=== PATIENT | male | born 1945 | race Caucasian/White ===

== ENCOUNTER → 2016-08-06 | Outpatient (CLI) | payer MEDICARE ==
[~2016-08-06] MED LIST: AMIO400T4 PO; APIX5TAB PO; ASCO1TAB22 PO; ASP81CT PO; ASPI-875 PO; ASPI-999 PO; CEPH500C PO; CHRO200C PO; CINN500C2 PO; CITA10SO PO; CYAN500T44 PO; DILT180C84 PO; DIPH25CA PO; DOCU-238 PO; DOXY100C42 PO; ESOM20CA32 PO; FEXO60TA PO; FLT05NA16; GABA-488 PO; GLUC100016 PO; GLUC1CAP37 PO; GLUC500T10 PO; HYDR-3454 PO; HYDR200T PO; LOVA40TA2 PO; MECL25TA56 PO; METF500T4 PO; METO-333 PO; METO100T6 PO; MTF500T PO; MULT-974 PO; NF-ESOM40C PO; OMEP20CA6 PO; PNT40TEC PO; PROLSEC; RIVA20TA PO; SCR1T1 PO; SUCR1TAB36 PO; VIT1TABL4 PO; VIT1TABL93 PO
--- NOTE | 2016-08-06 10:03 | Diagnostic Imaging Report ---
PROCEDURE: US Gallbladder. TECHNIQUE: Multiple real-time grayscale images were obtained over the right upper quadrant in various projections. Indication: Right upper quadrant pain, worse postprandially. Comparison: None. Discussion: Sonographic evaluation of the right upper quadrant was performed. The liver parenchyma is hyperechoic, consistent with diffuse fatty infiltration. No discrete hepatic mass is identified. The liver is normal in size. 6 mm non-shadowing echogenic focus along the dependent gallbladder wall could represent a small polyp or tumefactive sludge ball. Otherwise the gallbladder appears normal without evidence of cholelithiasis, wall thickening, or pericholecystic fluid. No evidence of intrahepatic biliary duct dilatation. The common bile duct is obscured by overlying bowel gas. The pancreas appears normal as visualized. The right kidney appears normal in echotexture and size without evidence of hydronephrosis or renal mass. The right kidney measures 11.5 cm. There is no ascites or abnormal bowel loops identified. No sonographic Qureshi sign was reported. Impression: 1. Suspect small 6 mm gallbladder polyp or tumefactive sludge ball. No acute abnormality otherwise identified. 2. Fatty infiltration of the liver. Dictated by: Dictated on workstation # [id number]
== END ==
LOC: RAD 09:23
PROVIDERS: ATTEND Internal Medicine
DX: R10.13 Epigastric pain (principal)
CPT/HCPCS: 76705

== ENCOUNTER → 2016-08-19 | Outpatient (CLI) | payer MEDICARE ==
[~2016-08-19] MED LIST changes: +CATHETER FLUSH 10 ML SYR IV PRN
--- NOTE | 2016-08-19 15:02 | Diagnostic Imaging Report ---
Indication: Epigastric pain. Comparison: Gallbladder ultrasound 08/06/2016. Technique: Scintigraphic images were obtained following the intravenous administration of 4.93 mCi of technetium 99m labeled Choletec. Ejection fraction was calculated following the administration of a fatty meal. Region of interest was drawn around the gallbladder and a time/activity curve was generated. Discussion: Hepatic uptake and excretion are normal. There is normal appearance of activity within the gallbladder at 20 minutes and within the small bowel at 50 minutes. No retention activity seen within the common duct. Following the administration of a fatty meal, the gallbladder ejection fraction was calculated at 66%, normal. Impression: 1. Normal HIDA scan. 2. Normal gallbladder ejection fraction. 3. Patient reported no symptoms during the exam. Dictated by: Dictated on workstation # [id number]
== END ==
LOC: CARD 12:15
PROVIDERS: ATTEND Internal Medicine
DX: R10.13 Epigastric pain (principal)
CPT/HCPCS: 78227

== ENCOUNTER 2016-10-15 11:38 | Emergency (ER) | payer MEDICARE ==
[~2016-10-15] VITALS: Ht 177.8 cm; Wt 90.7 kg
[~2016-10-15 11:38] MED LIST changes: -CATHETER FLUSH 10 ML SYR IV PRN; -DILT180C84 PO; -RIVA20TA PO
[2016-10-15] MEDS ORDERED: RX-NITROGLYCERIN 0.4 MG TAB BTL 25'S SL ONE ×2 (11:50→12:15)
[2016-10-15] MEDS ORDERED: ASPIRIN 81 MG CHEW (CHILDREN'S ASA) ONE (11:50)
[2016-10-15] MEDS ORDERED: DILTIAZEM 25 MG/5 ML INJ (CARDIZEM) VIAL ONE (11:58)
[2016-10-15] MEDS ORDERED: DILTIAZEM 100 MG/VIAL (CARDIZEM) ADD-VANTAGE IV ONE (11:59)
[2016-10-15] MEDS ORDERED: SODIUM CHLORIDE (ADD-VANTAGE) 100 ML IV ONE (11:59)
[2016-10-15] MEDS ORDERED: NS IV 1000 ML 1,000 ML IV ONE (12:06)
--- NOTE | 2016-10-15 12:10 | ED Chest Pain ---
General Stated Complaint: IRR HEART RATE Source: patient, family Exam Limitations: no limitations History of Present Illness Time seen by provider: 12:02 Initial Comments Here with report of chest pain that started at about 930 this morning in the left upper chest that radiated to the left arm through the left shoulder. He noted at the time that his pulse was fast and irregular. Has history of atrial fibrillation that is paroxysmal. Currently not on any medicines for rate control. States normally he is in sinus rhythm. Does admit that he worked outside yesterday and worked very hard and may have over done it a little bit. He is wondering if she might be a little dehydrated. Denies nausea, vomiting or sweating. Pain continues at a level of 4 out of 10 on arrival here. 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 NTG SL DRILL PRESS OPERATOR FOR METAL: No Associated Symptoms: No abdominal pain, No diaphoresis, No dizziness, No nausea /vomiting, No shortness of breath, No weakness Allergies and Home Medications Allergies Coded Allergies: No Known Drug Allergies (Unverified , 05/08/15) Home Medications Apixaban 5 Mg Tablet, 5 MG PO BID, (Reported) Cinnamon Bark 500 Mg Capsule, 500 MG PO BID, (Reported) Docusate Sodium 100 Mg Capsule, 100 MG PO BID, (Reported) Esomeprazole Magnesium 22.3 Mg Capsule.dr, 22.3 MG PO DAILY, (Reported) Fluticasone Propionate 16 Gm [place], 2 SPRAYS NA DAILY PRN for ALLERGIES, ( Reported) Glucosa Torres 2Kcl/Chondroitin Torres 1 Each Capsule, 1 CAP PO BID, (Reported) Lovastatin 40 Mg Tablet, 80 MG PO DAILY, (Reported) TAKES 2 (40MG) TABLETS Metformin HCl 500 Mg Tablet, 1,000 MG PO DAILY, (Reported) TAKES 2 (500MG) TABLETS Metoprolol Succinate 100 Mg Tab.er.24h, 100 MG PO DAILY, (Reported) Multivitamin 1 Each Tablet, 1 TAB PO DAILY, (Reported) Sucralfate 1 Gm Tablet, 1 GM PO QID PRN for STOMACH UPSET, (Reported) Review of Systems Constitutional: see HPI, No chills, No fever EENTM: No Symptoms Reported Respiratory: No Symptoms Reported Cardiovascular: See HPI, Chest Pain, Irregular Heart Rate, Palpitations Gastrointestinal: No Symptoms Reported Genitourinary: No Symptoms Reported Musculoskeletal: see HPI, joint pain, muscle pain Skin: no symptoms reported All Other Systems Reviewed Negative Unless Noted: Yes Past Rjbshiq-Utqwaj-Bgjadf Hx Patient Social History Alcohol Use: Denies Use Recreational Drug Use: No Smoking Status: Never a Smoker Immunizations Up To Date Tetanus Booster (TDap): More than 5yrs Date of Pneumonia Vaccine: May 29, 2012 Date of Influenza Vaccine: May 09, 2015 Surgeries HX Surgeries: Yes (STONE RETRIEVAL, HAMMER TOE REPAIR, HEART CATH) Surgeries: Orthopedic Respiratory Hx Respiratory Disorders: Yes (CPAP WITH O2) Respiratory Disorders: Sleep Apnea Cardiovascular Hx Cardiac Disorders: Yes (recent abnormal stress test) Cardiac Disorders: Atrial Fibrillation, Coronary Artery Disease, High Cholesterol, Hypertension, Rheumatic Fever Neurological Hx Neurological Disorders: Yes (LYME DISEASE, NEUROPATHY OF TOES ) Neurological Disorders: Neuropathy Reproductive System Hx Reproductive Disorders: No Sexually Transmitted Disease: No HIV/AIDS: No Genitourinary Hx Genitourinary Disorders: Yes (SEES DR HERRERA FOR PROSTATE) Genitourinary Disorders: Prostate Problems, Kidney Stones Gastrointestinal Hx Gastrointestinal Disorders: Yes Gastrointestinal Disorders: Gastroesophageal Reflux, Chronic Constipation Musculoskeletal Hx Musculoskeletal Disorders: Yes Musculoskeletal Disorders: Arthritis, Chronic Back Pain, Spasms Endocrine Hx Endocrine Disorders: Yes Endocrine Disorders: Diabetes, Non-Insulin dep HEENT HX ENT Disorders: Yes (GLASSES, HEARING AIDS, PARTIAL PLATE) Loss of Vision: Bilateral Hearing Impairment: Bilateral Hearing Aide Cancer Hx Cancer: Yes Cancer: Prostate, Skin Psychosocial Hx Psychiatric Problems: No Integumentary HX Skin/Integumentary Disorder: No Blood Transfusions Hx Blood Disorders: No Adverse Reaction to a Blood Tr: No Reviewed Nursing Assessment Reviewed/Agree w Nursing PMH: Yes Family Medical History Family Medial History: Cardiovascular disease 19 FATHER, Age:93 Diabetes mellitus 19 FATHER, Age:93 FH: bladder cancer 19 FATHER, Age:93 FH: congestive heart failure 19 MOTHER, FH: leukemia PATERNAL GRANDMOTHER, FH: mental illness G8 SISTER Heart valve abnormality 19 MOTHER, Hypertension 19 FATHER, Age:93 G8 SISTER Kidney disease 19 FATHER, Age:93 Prostate cancer 19 FATHER, Age:93 Physical Exam Vital Signs Vital Sign - Last 12Hours 10/15/16 10/15/16 11:38 11:40 Temp 97.9 Pulse 110 Resp 18 B/P (MAP) 122/72 Pulse Ox 94 O2 Delivery Room Air Capillary Refill : General Appearance: No Apparent Distress, WD/WN HEENT: PERRL/EOMI, Pharynx Normal Neck: Non Tender, Supple Respiratory: Lungs Clear, Normal Breath Sounds Cardiovascular: Irregularly Irregular, Tachycardia Gastrointestinal: Normal Bowel Sounds, Soft Extremity: Normal Range of Motion, Non Tender Neurologic/Psychiatric: Alert, Oriented x3, No Motor/Sensory Deficits Skin: Normal Color, Warm/Dry Progress/Results/Core Measures Results/Orders Lab Results Laboratory Tests Test 10/15/16 11:45 10/15/16 14:36 Range/Units White Blood Count 4.2 L 4.3-11.0 10^3/uL Red Blood Count 5.08 4.35-5.85 10^6/uL Hemoglobin 15.2 13.3-17.7 G/DL Hematocrit 45 40-54 % Mean Corpuscular Volume 88 80-99 FL Mean Corpuscular Hemoglobin 30 25-34 PG Mean Corpuscular Hemoglobin Concent 34 32-36 G/DL Red Cell Distribution Width 13.1 10.0-14.5 % Platelet Count 169 130-400 10^3/uL Mean Platelet Volume 10.9 H 7.4-10.4 FL Neutrophils (%) (Auto) 46 42-75 % Lymphocytes (%) (Auto) 42 12-44 % Monocytes (%) (Auto) 7 0-12 % Eosinophils (%) (Auto) 4 0-10 % Basophils (%) (Auto) 1 0-10 % Neutrophils # (Auto) 1.9 1.8-7.8 X 10^3 Lymphocytes # (Auto) 1.8 1.0-4.0 X 10^3 Monocytes # (Auto) 0.3 0.0-1.0 X 10^3 Eosinophils # (Auto) 0.2 0.0-0.3 10^3/uL Basophils # (Auto) 0.0 0.0-0.1 10^3/uL Prothrombin Time 11.8 L 12.2-14.7 SEC INR Comment 0.9 0.8-1.4 Activated Partial Thromboplast Time 28 24-35 SEC D-Dimer 0.41 0.00-0.49 UG/ML Sodium Level 140 135-145 MMOL/L Potassium Level 4.4 3.6-5.0 MMOL/L Chloride Level 105 98-107 MMOL/L Carbon Dioxide Level 26 21-32 MMOL/L Anion Gap 9 5-14 MMOL/L Blood Urea Nitrogen 13 7-18 MG/DL Creatinine 0.82 0.60-1.30 MG/DL Estimat Glomerular Filtration Rate > 60 BUN/Creatinine Ratio 16 Glucose Level 182 H 70-105 MG/DL Calcium Level 8.9 8.5-10.1 MG/DL Magnesium Level 1.8 1.8-2.4 MG/DL Total Bilirubin 0.4 0.1-1.0 MG/DL Aspartate Amino Transf (AST/SGOT) 20 5-34 U/L Alanine Aminotransferase (ALT/SGPT) 27 0-55 U/L Alkaline Phosphatase 79 40-136 U/L Myoglobin 45.2 10.0-92.0 NG/ML Troponin I < 0.30 < 0.30 <0.30 NG/ML Total Protein 6.3 L 6.4-8.2 G/DL Albumin 3.8 3.2-4.5 G/DL My Orders Orders - CHACE HOLLAND MD Aspirin Chewable Tablet (Baby Aspirin Ch (10/15/16 11:50) Rx-Nitroglycerin Sl Tabs (Rx-Nitrostat S (10/15/16 11:50) Diltiazem Injection (Cardizem Injection) (10/15/16 11:58) Sodium Chloride (Add-[place]) (Ns (Add-V (10/15/16 11:59) Diltiazem Drip (Cardizem Drip) (10/15/16 11:59) Cbc With Automated Diff (10/15/16 12:05) Magnesium (10/15/16 12:05) Chest 1 View, Ap/Pa Only (10/15/16 12:05) Ekg Tracing (10/15/16 12:05) Cardiac Profile 1 (10/15/16 12:05) Comprehensive Metabolic Panel (10/15/16 12:05) Myoglobin Serum (10/15/16 12:05) Protime With Inr (10/15/16 12:05) Partial Thromboplastin Time (10/15/16 12:05) O2 (10/15/16 12:05) Monitor-Rhythm Ecg Trace Only (10/15/16 12:05) Lipid Panel (10/16/16 06:00) Aspirin Chewable Tablet (Baby Aspirin Ch (10/15/16 12:15) Rx-Nitroglycerin Sl Tabs (Rx-Nitrostat S (10/15/16 12:15) Saline Lock/Iv-Start (10/15/16 12:05) Ns Iv 1000 Ml (Sodium Chloride 0.9%) (10/15/16 12:06) Fibrin Degradation Products (10/15/16 12:45) Ns Iv 500 Ml (Sodium Chloride 0.9%) (10/15/16 13:44) Ns Iv 500 Ml (Sodium Chloride 0.9%) (10/15/16 13:43) Troponin I (10/15/16 14:26) Apixaban Tablet (Eliquis Tablet) (10/15/16 14:30) Medications Given in ED Current Medications Medications Dose Ordered Sig/Jamie Route Start Time Stop Time Status Last Admin Dose Admin Apixaban 5 mg ONCE ONCE PO 10/15/16 14:30 10/15/16 14:31 DC 10/15/16 15:16 5 MG Aspirin 324 mg ONCE ONCE PO 10/15/16 12:15 10/15/16 12:16 DC 10/15/16 11:53 324 MG Nitroglycerin 0.4 mg UD ONCE SL 10/15/16 12:15 10/15/16 12:16 DC 10/15/16 11:54 0.4 MG Sodium Chloride 500 ml @ 0 mls/hr Q0M ONCE IV 10/15/16 13:44 10/15/16 13:45 DC 10/15/16 13:51 500 MLS/HR Sodium Chloride 1,000 ml @ 0 mls/hr Q0M ONCE IV 10/15/16 12:06 10/15/16 12:07 DC 10/15/16 12:05 1,000 MLS/HR Vital Signs/I&O Vital Sign - Last 12Hours 10/15/16 10/15/16 11:38 11:40 Temp 97.9 Pulse 110 Resp 18 B/P (MAP) 122/72 Pulse Ox 94 O2 Delivery Room Air Room Air Progress Note : Progress Note Seen and evaluated. IV, labs, EKG and chest x-ray ordered. ASA 324 mg by mouth. Nitroglycerin sublingual ordered. He did receive 1 dose of nitroglycerin and had blood pressure dropped to 80s over 70s. Normal saline 1 L bolus initiated which will help with blood pressure and concerns for dehydration. Patient has atrial fibrillation that is currently at the rate of 90-140 bpm. Monitor patient. 1250: Heart rate now 70s to 90s and blood pressure 102/23 and patient is resting peacefully. Monitor patient. 1423: I did discuss the case with Dr. Ortiz. We will repeat troponin and initiate AHLQUIST treatment. Patient's heart rate is in the 70s to 80s currently and he is still without chest pain. Overall patient feels better. Dr. Ortiz will see patient in clinic tomorrow if troponin is negative. 1525: Repeat troponin is negative. Patient is still without chest pain. Discharged home with return precautions. Patient verbalize understanding instructions and agreement with plan. ECG Initial ECG Impression Date: Oct 15, 2016 Initial ECG Impression Time: 11:44 Initial ECG Rate: 89 Initial ECG Rhythm: A Fib/Flutter Comment Atrial fibrillation with rate of 89. Normal axis. No evidence of ST elevation [place]. Change from previous of 06/12/15 in which was sinus rhythm. Interpreted by me. Diagnostic Imaging Diagonstic Imaging: Xray Plain Films/CT/US/NM/MRI: chest Comments VIA [facility], [facility]. [place], [place] NAME: JHOANA ARCHULETA [facility] REC#: [id number] PT STATUS: REG ER : 1945 PHYSICIAN: CHACE HOLLAND MD ADMIT DATE: 10/15/16/ER Draft Date of Exam:10/15/16 CHEST 1 VIEW, AP/PA ONLY INDICATION: Irregular heart rate COMPARISON: 06/11/2015 FINDINGS: Single frontal view of the chest demonstrates normal heart size and pulmonary vascularity. The lungs are well aerated and clear. No large pleural effusion or pneumothorax is seen. The visualized osseous structures show no acute abnormalities. IMPRESSION: 1. No acute cardiopulmonary process. Dictated on workstation # [id number] Dict: 10/15/16 1245 Trans: 10/15/16 1246 JENNIFER [id number] Interpreted by: RUBIO ROME Electronically signed by: Departure Impression Impression: Primary Impression: Paroxysmal atrial fibrillation Disposition: 01 HOME, SELF-CARE Condition: Improved Departure-Patient Inst. Decision time for Depature: 15:27 Referrals: STEPHANY ORTIZ MD [facility] NIGHAT PENDLETON DO (PCP/Family) Primary Care Physician Patient Instructions: Atrial Fibrillation (DC), Chest Pain (DC) Add. Discharge Instructions: You will restart your request. Your next dose is due tomorrow morning and then you will take it twice daily. Call Dr. Ortiz's office in the morning for appointment tomorrow. Return for worse pain, weakness, fast heart rate, breathing problems, nausea, vomiting or sweating or other concerns as needed. Continue other medications as directed. Scripts Apixaban (Eliquis) 5 Mg Tablet 5 MG PO BID, #60 TAB Prov: CHACE HOLLAND MD 10/15/16 Copy Copies To 1: STEPHANY ORTIZ MD [facility] CHACE HOLLAND MD Oct 15, 2016 12:10
[2016-10-15 12:15] LABS: BASOPHILS % (AUTO) 1 % (0-10); EOSINOPHILS # (AUTO) 0.2 10^3/uL (0.0-0.3); EOSINOPHILS % (AUTO) 4 % (0-10); LYMPHOCYTES # (AUTO) 1.8 X 10^3 (1.0-4.0); LYMPHOCYTES % (AUTO) 42 % (12-44); MEAN CORPUSCULAR HEMOGLOBIN 30 PG (25-34); MEAN CORPUSCULAR HGB CONC 34 G/DL (32-36); MEAN CORPUSCULAR VOLUME 88 FL (80-99); MEAN PLATELET VOLUME 10.9 FL (7.4-10.4); MONOCYTES # (AUTO) 0.3 X 10^3 (0.0-1.0); MONOCYTES % (AUTO) 7 % (0-12); NEUTROPHILS # (AUTO) 1.9 X 10^3 (1.8-7.8); NEUTROPHILS % (AUTO) 46 % (42-75); PLATELET COUNT 169 10^3/uL (130-400); RED BLOOD COUNT 5.08 10^6/uL (4.35-5.85); RED CELL DISTRIBUTION WIDTH 13.1 % (10.0-14.5); WHITE BLOOD COUNT 4.2 10^3/uL (4.3-11.0)
[2016-10-15] MEDS ORDERED: ASPIRIN 81 MG CHEW (CHILDREN'S ASA) PO ONE (12:15)
[2016-10-15 12:18] LABS: INR 0.9 (0.8-1.4); PROTHROMBIN TIME PATIENT 11.8 SEC (12.2-14.7)
[2016-10-15 12:28] LABS: ALANINE AMINOTRANSFERASE 27 U/L (0-55); ALBUMIN 3.8 G/DL (3.2-4.5); ANION GAP 9 MMOL/L (5-14); ASPARTATE AMINO TRANSFERASE 20 U/L (5-34); BILIRUBIN,TOTAL 0.4 MG/DL (0.1-1.0); BLOOD UREA NITROGEN 13 MG/DL (7-18); BUN/CREATININE RATIO 16; CALCIUM 8.9 MG/DL (8.5-10.1); CARBON DIOXIDE 26 MMOL/L (21-32); CHLORIDE 105 MMOL/L (98-107); CREATININE SERUM 0.82 MG/DL (0.60-1.30); GFR ESTIMATED > 60; GLUCOSE 182 MG/DL (70-105); MAGNESIUM 1.8 MG/DL (1.8-2.4); POTASSIUM 4.4 MMOL/L (3.6-5.0); SODIUM 140 MMOL/L (135-145); TOTAL PROTEIN 6.3 G/DL (6.4-8.2)
[2016-10-15 12:35] LABS: MYOGLOBIN SERUM 45.2 NG/ML (10.0-92.0)
--- NOTE | 2016-10-15 12:47 | Diagnostic Imaging Report ---
INDICATION: Irregular heart rate COMPARISON: 06/11/2015 FINDINGS: Single frontal view of the chest demonstrates normal heart size and pulmonary vascularity. The lungs are well aerated and clear. No large pleural effusion or pneumothorax is seen. The visualized osseous structures show no acute abnormalities. IMPRESSION: 1. No acute cardiopulmonary process. Dictated by: Dictated on workstation # [id number]
[2016-10-15] MEDS ORDERED: NS IV 500 ML 500 ML ONE (13:43)
[2016-10-15] MEDS ORDERED: NS IV 500 ML 500 ML IV ONE (13:44)
[2016-10-15] MEDS ORDERED: APIXABAN 5 MG (ELIQUIS) TABLET PO ONE (14:30)
[2016-10-15] MEDS ORDERED: APIX5TAB PO (15:28)
[2016-10-15 15:31] VITALS: BP 123/82
--- OUTSIDE RECORDS SUMMARY | 2016-11-03 04:19 | XMS REPORT | Continuity of Care Document ---
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 Social History History Response Recorded Date/Time Alcohol Use Denies Use 09/15/12 11:03am Recreational Drug Use N 09/15/12 11:03am Recent Foreign Travel N 09/15/12 10:39am Recent Infectious Disease Exposure N 11:03am Hospitalization with Isolation Denies 10:39am Allergies, Adverse Reactions, Alerts Allergen Type Severity Reaction Last Updated No Known Drug Allergies 11/17/10 Medications Medication Dose Units Route Sig Qty Days Pantoprazole Sodium (Protonix) 1 Tab PO DAILY 30 Sucralfate (Carafate) 1 Gm PO QID Aspirin ([place] Aspirin) 81 Mg PO DAILY Omeprazole (Prilosec) 20 Mg PO DAILY Fluticasone Propionate (Flonase 0.05% Nasal [place]) 2 Sprays NSEACH DAILY Lovastatin (Lovastatin 40 Mg) 2 Each PO DAILY WITH SUPPER Fexofenadine HCl (Jenifer) 1 Each PO BID Citalopram Hydrobromide (Citalopram) 20 Mg PO HS Immunizations Name Given Type Date of Pneumonia Vaccine 05/29/12 H Date of Influenza Vaccine 04/24/12 H Response Recorded Date/Time Status not known Unknown Results No Known Relevant Diagnostic Tests, Laboratory Data and/or Discharge Summary. Procedures Procedure Code Date DIAGNOSTIC COLONOSCOPY 85166 06/09/08 UPPER GI ENDOSCOPY BIOPSY [id number] 06/24/12 Encounters Encounter Location Date/Time Departed Emergency Room [facility] 10:37am
--- OUTSIDE RECORDS SUMMARY | 2016-11-03 04:19 | XMS REPORT | Continuity of Care Document ---
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 (mass/volume) 0.41 ug/mL 0.00-0.49 Serum or plasma troponin i.cardiac measurement (mass/volume) - 10/15/16 14:36 Serum or plasma troponin i.cardiac measurement (mass/volume) < ng/mL <0.30 Complete blood count (CBC) with automated white blood cell (WBC) differential - 10/17/16 16:20 Blood leukocytes automated count (number/volume) 6.0 10*3/ uL 4.3-11.0 Blood erythrocytes automated count (number/volume) 4.62 10*6 /uL 4.35-5.85 Venous blood hemoglobin measurement (mass/volume) 13.9 g/dL 13.3-17.7 Blood hematocrit (volume fraction) 41 % 40-54 Automated erythrocyte mean corpuscular volume 88 [foz_us] 80-99 Automated erythrocyte mean corpuscular hemoglobin (mass per erythrocyte) 30 pg 25-34 Automated erythrocyte mean corpuscular hemoglobin concentration measurement ( mass/volume) 34 g/dL 32-36 Automated erythrocyte distribution width ratio 12.9 % 10.0-14.5 Automated blood platelet count (count/volume) 171 10*3/uL 130-400 Automated blood platelet mean volume measurement 11.3 [foz_ us] 7.4-10.4 Automated blood neutrophils/100 leukocytes 63 % 42-75 Automated blood lymphocytes/100 leukocytes 28 % 12-44 Blood monocytes/100 leukocytes 6 % 0-12 Automated blood eosinophils/100 leukocytes 2 % 0-10 Automated blood basophils/100 leukocytes 1 % 0-10 Blood neutrophils automated count (number/volume) 3.8 10*3 1.8-7.8 Blood lymphocytes automated count (number/volume) 1.7 10*3 1.0-4.0 Blood monocytes automated count (number/volume) 0.4 10*3 0.0-1.0 Automated eosinophil count 0.1 10*3/uL 0.0-0.3 Automated blood basophil count (count/volume) 0.0 10*3/uL 0.0-0.1 PT panel in platelet poor plasma by coagulation assay - 10/17/16 16:20 Prothrombin time (PT) in platelet poor plasma by coagulation assay 17.6 s 12.2-14.7 INR in platelet poor plasma or blood by coagulation assay 1.5 0.8-1.4 Activated partial thromboplastin time (aPTT) in platelet poor plasma bycoagulation assay - 10/17/16 16:20 Activated partial thromboplastin time (aPTT) in platelet poor plasma bycoagulation assay 33 s 24-35 Comprehensive metabolic panel - 10/17/16 16:20 Serum or plasma sodium measurement (moles/volume) 139 mmol/ L 135-145 Serum or plasma potassium measurement (moles/volume) 4.2 mmol/L 3.6-5.0 Serum or plasma chloride measurement (moles/volume) 106 mmol /L 98-107 Carbon dioxide 24 mmol/L 21-32 Serum or plasma anion gap determination (moles/volume) 9 mmol/L 5-14 Serum or plasma urea nitrogen measurement (mass/volume) 13 mg/dL 7-18 Serum or plasma creatinine measurement (mass/volume) 0.89 mg /dL 0.60-1.30 Serum or plasma urea nitrogen/creatinine mass ratio 15 NRG Serum or plasma creatinine measurement with calculation of estimated glomerular filtration rate > NRG Serum or plasma glucose measurement (mass/volume) 202 mg/dL 70-105 Serum or plasma calcium measurement (mass/volume) 9.2 mg/dL 8.5-10.1 Serum or plasma total bilirubin measurement (mass/volume) 0.4 mg/dL 0.1-1.0 Serum or plasma alkaline phosphatase measurement (enzymatic activity/volume) 73 U/L 40-136 Serum or plasma aspartate aminotransferase measurement (enzymatic activity/ volume) 23 U/L 5-34 Serum or plasma alanine aminotransferase measurement (enzymatic activity/volume ) 30 U/L 0-55 Serum or plasma protein measurement (mass/volume) 6.3 g/dL 6.4-8.2 Serum or plasma albumin measurement (mass/volume) 3.7 g/dL 3.2-4.5 Magnesium - 10/17/16 16:20 Magnesium 1.9 mg/dL 1.8-2.4 Serum or plasma troponin i.cardiac measurement (mass/volume) - 10/17/16 16:20 Serum or plasma troponin i.cardiac measurement (mass/volume) < ng/mL <0.30 Myoglobin, serum - 10/17/16 16:20 Myoglobin, serum 56.6 ng/mL 10.0-92.0 Serum or plasma troponin i.cardiac measurement (mass/volume) - 10/17/16 22:20 Serum or plasma troponin i.cardiac measurement (mass/volume) < ng/mL <0.30 Complete blood count (CBC) with automated white blood cell (WBC) differential - 10/18/16 03:25 Blood leukocytes automated count (number/volume) 4.1 10*3/ uL 4.3-11.0 Blood erythrocytes automated count (number/volume) 4.16 10*6 /uL 4.35-5.85 Venous blood hemoglobin measurement (mass/volume) 12.5 g/dL 13.3-17.7 Blood hematocrit (volume fraction) 37 % 40-54 Automated erythrocyte mean corpuscular volume 89 [foz_us] 80-99 Automated erythrocyte mean corpuscular hemoglobin (mass per erythrocyte) 30 pg 25-34 Automated erythrocyte mean corpuscular hemoglobin concentration measurement ( mass/volume) 34 g/dL 32-36 Automated erythrocyte distribution width ratio 12.9 % 10.0-14.5 Automated blood platelet count (count/volume) 161 10*3/uL 130-400 Automated blood platelet mean volume measurement 11.0 [foz_ us] 7.4-10.4 Automated blood neutrophils/100 leukocytes 42 % 42-75 Automated blood lymphocytes/100 leukocytes 45 % 12-44 Blood monocytes/100 leukocytes 8 % 0-12 Automated blood eosinophils/100 leukocytes 5 % 0-10 Automated blood basophils/100 leukocytes 1 % 0-10 Blood neutrophils automated count (number/volume) 1.7 10*3 1.8-7.8 Blood lymphocytes automated count (number/volume) 1.8 10*3 1.0-4.0 Blood monocytes automated count (number/volume) 0.3 10*3 0.0-1.0 Automated eosinophil count 0.2 10*3/uL 0.0-0.3 Automated blood basophil count (count/volume) 0.0 10*3/uL 0.0-0.1 Comprehensive metabolic panel - 10/18/16 03:25 Serum or plasma sodium measurement (moles/volume) 140 mmol/ L 135-145 Serum or plasma potassium measurement (moles/volume) 4.0 mmol/L 3.6-5.0 Serum or plasma chloride measurement (moles/volume) 108 mmol /L 98-107 Carbon dioxide 23 mmol/L 21-32 Serum or plasma anion gap determination (moles/volume) 9 mmol/L 5-14 Serum or plasma urea nitrogen measurement (mass/volume) 12 mg/dL 7-18 Serum or plasma creatinine measurement (mass/volume) 0.79 mg /dL 0.60-1.30 Serum or plasma urea nitrogen/creatinine mass ratio 15 NRG Serum or plasma creatinine measurement with calculation of estimated glomerular filtration rate > NRG Serum or plasma glucose measurement (mass/volume) 126 mg/dL 70-105 Serum or plasma calcium measurement (mass/volume) 8.3 mg/dL 8.5-10.1 Serum or plasma total bilirubin measurement (mass/volume) 0.4 mg/dL 0.1-1.0 Serum or plasma alkaline phosphatase measurement (enzymatic activity/volume) 65 U/L 40-136 Serum or plasma aspartate aminotransferase measurement (enzymatic activity/ volume) 21 U/L 5-34 Serum or plasma alanine aminotransferase measurement (enzymatic activity/volume ) 28 U/L 0-55 Serum or plasma protein measurement (mass/volume) 5.6 g/dL 6.4-8.2 Serum or plasma albumin measurement (mass/volume) 3.3 g/dL 3.2-4.5 Serum or plasma phosphate measurement (mass/volume) - 10/18/16 03:25 Serum or plasma phosphate measurement (mass/volume) 4.2 mg/ dL 2.3-4.7 Magnesium - 10/18/16 03:25 Magnesium 1.8 mg/dL 1.8-2.4 Myoglobin, serum - 10/18/16 03:25 Myoglobin, serum 42.1 ng/mL 10.0-92.0 Lipid 1996 panel - 10/18/16 03:25 Serum or plasma triglyceride measurement (mass/volume) 104 mg/dL <150 Serum or plasma cholesterol measurement (mass/volume) 157 mg /dL < 200 Serum or plasma cholesterol in HDL measurement (mass/volume) 37 mg/dL 40-60 Cholesterol in LDL [mass/volume] in serum or plasma by direct assay 103 mg/dL 1-129 Serum or plasma cholesterol in VLDL measurement (mass/volume) 21 mg/dL 5-40 THYROID STIMULATING HORMONE - 10/18/16 03:25 THYROID STIMULATING HORMONE 1.50 u[iU]/mL 0.35-4.94 Encounters ACCT No. Visit Date/Time Discharge Status Pt. 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 [facility] ER HEAD INJ [id number] 06/30/2015 21:05:00 2014 07:07:00 DIS Outpatient NIGHAT PENDLETON DO [facility] SLEEP SNORING,,DAYTIME SLEEPINESS,CPAP FAILURE [id number] 06/11/2015 17:13:00 2014 11:35:00 DIS Inpatient NIGHAT PENDLETON DO [facility] ICU AFIB WITH RVR [id number] 05/08/2015 16:29:00 2014 09:53:00 DIS Outpatient CHANDRIKA BIRD FACC, STEPHANY FACP CCDS [facility] CATH CHEST PAIN [id number] 05/05/2015 07:38:00 2014 23:59:59 CLS Outpatient CHANDRIKA BIRD FACC, ALI FACP CCDS [facility] CARD PAF,BRANDI,OBESITY,HLP,CHEST DISCOMFORT [id number] 05/04/2015 07:43:00 2014 23:59:59 CLS Outpatient CHANDRIKA BIRD FACC, ALI FACP CCDS [facility] CARD PAF,BRANDI,OBESITY,HLP,CHEST DISCOMFORT [id number] 04/16/2015 18:53:00 2014 20:48:00 DIS Emergency YAMILET BIRD, SABAS [place] [facility] ER CHEST PAIN [id number] 04/06/2015 08:32:00 2014 14:05:00 DIS Outpatient REMINGTON DPM, MARCEL Q [facility] SDC CAPSULITIS, HYPERTROPHIC RIGHT SECOND METATARSAL [id number] 03/30/2015 13:09:00 2014 23:59:59 CLS Outpatient REMINGTON ISIS MARCEL Antonio [facility] PREOP CAPSULITIS, HYPERTROPHIC RIGHT SECOND METATARSAL [id number] 11/12/2013 19:48:00 2013 06:50:00 DIS Outpatient FAUSTINA ALMONTEP [facility] SLEEP BRANDI,UNSPECIFIED SLEEP DISTURBANCE [id number] 12/02/2012 20:14:00 2012 06:30:00 DIS Outpatient NIGHAT PENDLETON DO [facility] SLEEP SNORING,HYPERTENSION, EXCESSIVE DAYTIME SLEEPINESS [id number] 08/19/2016 12:15:00 ACT Outpatient NIGHAT PENDLETON DO [facility] CARD R10.13 [id number] 08/06/2016 09:23:00 ACT Outpatient NIGHAT PENDLETON DO [facility] RAD R10.13 [id number] 10/25/2015 09:00:00 ACT Outpatient CAYETANO CAMACHO DO [facility] RT SOA, DYSPNEA, [id number] 07/31/2015 11:32:00 ACT Outpatient AV KEEN [facility] CARD AFIB, HTN [id number] 09/15/2012 10:37:00 Document Registration [id number] 06/24/2012 08:17:00 Document Registration [id number] 06/17/2012 07:25:00 Document Registration [id number] 05/15/2012 10:45:00 Document Registration [id number] 09/13/2011 06:07:00 Document Registration [id number] 12/14/2010 12:57:00 Document Registration [id number] 11/17/2010 11:02:00 Document Registration
== END 2016-10-15 15:33 | disposition home or self-care (01) ==
LOC: EDUNIT# 11:38 → ER 11:40
DX: I48.0 Paroxysmal atrial fibrillation (principal); I10 Essential (primary) hypertension; E11.9 Type 2 diabetes mellitus without complications; I25.10 Atherosclerotic heart disease of native coronary artery without angina pectoris; Z79.01 Long term (current) use of anticoagulants; Z79.84 Long term (current) use of oral hypoglycemic drugs; Z79.899 Other long term (current) drug therapy
CPT/HCPCS: 36415; 71010; 80053; 83735; 83874; 84484; 85025; 85379; 85610; 85730; 93005; 93041; 96360

== ENCOUNTER 2016-10-17 16:00 | Observation (INO) | payer MEDICARE ==
[~2016-10-17] VITALS: Ht 177.8 cm; Wt 102.1 kg
[2016-10-17] MEDS ORDERED: DILTIAZEM 25 MG/5 ML INJ (CARDIZEM) VIAL ONE (16:05)
[2016-10-17] MEDS ORDERED: NS (IVPB) 0 ML ONE (16:05)
[2016-10-17] MEDS ORDERED: DILTIAZEM 100 MG/VIAL (CARDIZEM) ADD-VANTAGE IV ONE (16:05)
[2016-10-17] MEDS ORDERED: SODIUM CHLORIDE (ADD-VANTAGE) 100 ML IV ONE (16:06)
[2016-10-17] MEDS ORDERED: DILTIAZEM 25 MG/5 ML INJ (CARDIZEM) VIAL IVP ONE (16:15)
[2016-10-17] MEDS ORDERED: ASPIRIN 81 MG CHEW (CHILDREN'S ASA) PO ONE (16:15)
[2016-10-17] MEDS ORDERED: DILTIAZEM DRIP 100 MG in SODIUM CHLORIDE (ADD-VANTAGE) 100 ML IV SCH (16:15)
[2016-10-17 16:32] LABS: BASOPHILS % (AUTO) 1 % (0-10); EOSINOPHILS # (AUTO) 0.1 10^3/uL (0.0-0.3); EOSINOPHILS % (AUTO) 2 % (0-10); LYMPHOCYTES # (AUTO) 1.7 X 10^3 (1.0-4.0); LYMPHOCYTES % (AUTO) 28 % (12-44); MEAN CORPUSCULAR HEMOGLOBIN 30 PG (25-34); MEAN CORPUSCULAR HGB CONC 34 G/DL (32-36); MEAN CORPUSCULAR VOLUME 88 FL (80-99); MEAN PLATELET VOLUME 11.3 FL (7.4-10.4); MONOCYTES # (AUTO) 0.4 X 10^3 (0.0-1.0); MONOCYTES % (AUTO) 6 % (0-12); NEUTROPHILS # (AUTO) 3.8 X 10^3 (1.8-7.8); NEUTROPHILS % (AUTO) 63 % (42-75); PLATELET COUNT 171 10^3/uL (130-400); RED BLOOD COUNT 4.62 10^6/uL (4.35-5.85); RED CELL DISTRIBUTION WIDTH 12.9 % (10.0-14.5)
--- NOTE | 2016-10-17 16:42 | ED Chest Pain ---
General Chief Complaint: Chest Pain Stated Complaint: AFIB ATTACK Source: patient Exam Limitations: no limitations History of Present Illness Time seen by provider: 16:00 Initial Comments Here with report of central chest pain and return of his atrial fibrillation with fast heart rate. This started at about 2 p.m. today. Seen yesterday for the same and also seen by his industrial painter yesterday evening. Rate had been controlled with fluids yesterday. Denies any significant activity currently. Denies shortness of breath or breathing problems. 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 NTG SL FLORIST DESIGNER: No Associated Symptoms: No back pain, No diaphoresis, No nausea/vomiting, No shortness of breath, No weakness Allergies and Home Medications Allergies Coded Allergies: No Known Drug Allergies (Unverified , 05/08/15) Home Medications Cinnamon Bark 500 Mg Capsule, 500 MG PO BID, (Reported) Diltiazem HCl 180 Mg Cap.er.24h, 360 MG PO DAILY, #30 Ref 5 Prescribed by: AV KEEN on 10/18/16 0847 Docusate Sodium 100 Mg Capsule, 100 MG PO BID, (Reported) Esomeprazole Magnesium 22.3 Mg Capsule.dr, 22.3 MG PO DAILY, (Reported) Fluticasone Propionate 16 Gm [place], 2 SPRAYS NA DAILY PRN for ALLERGIES, ( Reported) Glucosa Torres 2Kcl/Chondroitin Torres 1 Each Capsule, 1 CAP PO BID, (Reported) Lovastatin 40 Mg Tablet, 80 MG PO DAILY, (Reported) TAKES 2 (40MG) TABLETS Metformin HCl 500 Mg Tablet, 1,000 MG PO DAILY, (Reported) TAKES 2 (500MG) TABLETS Multivitamin 1 Each Tablet, 1 TAB PO DAILY, (Reported) Rivaroxaban 20 Mg Tablet, 20 MG PO DAILY@1700, #30 Ref 3 Prescribed by: AV KEEN on 10/18/16 0847 Review of Systems Constitutional: see HPI, No chills, No fever EENTM: No Symptoms Reported Respiratory: No Symptoms Reported Cardiovascular: See HPI, Chest Pain, Irregular Heart Rate, Palpitations Gastrointestinal: No Symptoms Reported Genitourinary: No Symptoms Reported Musculoskeletal: no symptoms reported Skin: no symptoms reported All Other Systems Reviewed Negative Unless Noted: Yes Past Sbxlahb-Autwru-Lbpcbv Hx Patient Social History Alcohol Use: Occasionally Uses Recreational Drug Use: No Smoking Status: Never a Smoker Recent Foreign Travel: No Contact w/Someone Who Travel: No Immunizations Up To Date Tetanus Booster (TDap): More than 5yrs Date of Pneumonia Vaccine: May 29, 2012 Date of Influenza Vaccine: May 09, 2015 Surgeries HX Surgeries: Yes (STONE RETRIEVAL, HAMMER TOE REPAIR, HEART CATH) Surgeries: Orthopedic Respiratory Hx Respiratory Disorders: Yes (CPAP WITH O2) Respiratory Disorders: Sleep Apnea Cardiovascular Hx Cardiac Disorders: Yes (recent abnormal stress test) Cardiac Disorders: Atrial Fibrillation, Coronary Artery Disease, High Cholesterol, Hypertension, Rheumatic Fever Neurological Hx Neurological Disorders: Yes (LYME DISEASE, NEUROPATHY OF TOES ) Neurological Disorders: Neuropathy Reproductive System Hx Reproductive Disorders: No Sexually Transmitted Disease: No HIV/AIDS: No Genitourinary Hx Genitourinary Disorders: Yes (SEES DR HERRERA FOR PROSTATE) Genitourinary Disorders: Prostate Problems, Kidney Stones Gastrointestinal Hx Gastrointestinal Disorders: Yes Gastrointestinal Disorders: Gastroesophageal Reflux, Chronic Constipation Musculoskeletal Hx Musculoskeletal Disorders: Yes Musculoskeletal Disorders: Arthritis, Chronic Back Pain, Spasms Endocrine Hx Endocrine Disorders: Yes Endocrine Disorders: Diabetes, Non-Insulin dep HEENT HX ENT Disorders: Yes (GLASSES, HEARING AIDS, PARTIAL PLATE) Loss of Vision: Bilateral Hearing Impairment: Bilateral Hearing Aide Cancer Hx Cancer: Yes Cancer: Prostate, Skin Psychosocial Hx Psychiatric Problems: No Integumentary HX Skin/Integumentary Disorder: No Blood Transfusions Hx Blood Disorders: No Adverse Reaction to a Blood Tr: No Reviewed Nursing Assessment Reviewed/Agree w Nursing PMH: Yes Family Medical History Family Medial History: Cardiovascular disease 19 FATHER, Age:93 Diabetes mellitus 19 FATHER, Age:93 FH: bladder cancer 19 FATHER, Age:93 FH: congestive heart failure 19 MOTHER, FH: leukemia PATERNAL GRANDMOTHER, FH: mental illness G8 SISTER Heart valve abnormality 19 MOTHER, Hypertension 19 FATHER, Age:93 G8 SISTER Kidney disease 19 FATHER, Age:93 Prostate cancer 19 FATHER, Age:93 Physical Exam Vital Signs Vital Sign - Last 12Hours 10/17/16 16:10 Temp 97.2 Pulse 165 Resp 20 B/P (MAP) 117/104 Pulse Ox 98 O2 Delivery Room Air Capillary Refill : General Appearance: No Apparent Distress, WD/WN HEENT: PERRL/EOMI, Pharynx Normal Neck: Non Tender, Supple Respiratory: Lungs Clear, Normal Breath Sounds Cardiovascular: Irregularly Irregular, Tachycardia Gastrointestinal: Normal Bowel Sounds Extremity: Normal Range of Motion, Non Tender, No Calf Tenderness Neurologic/Psychiatric: Alert, Oriented x3 Skin: Normal Color, Warm/Dry Progress/Results/Core Measures Results/Orders Lab Results Laboratory Tests Test 10/17/16 16:20 Range/Units White Blood Count 6.0 4.3-11.0 10^3/uL Red Blood Count 4.62 4.35-5.85 10^6/uL Hemoglobin 13.9 13.3-17.7 G/DL Hematocrit 41 40-54 % Mean Corpuscular Volume 88 80-99 FL Mean Corpuscular Hemoglobin 30 25-34 PG Mean Corpuscular Hemoglobin Concent 34 32-36 G/DL Red Cell Distribution Width 12.9 10.0-14.5 % Platelet Count 171 130-400 10^3/uL Mean Platelet Volume 11.3 H 7.4-10.4 FL Neutrophils (%) (Auto) 63 42-75 % Lymphocytes (%) (Auto) 28 12-44 % Monocytes (%) (Auto) 6 0-12 % Eosinophils (%) (Auto) 2 0-10 % Basophils (%) (Auto) 1 0-10 % Neutrophils # (Auto) 3.8 1.8-7.8 X 10^3 Lymphocytes # (Auto) 1.7 1.0-4.0 X 10^3 Monocytes # (Auto) 0.4 0.0-1.0 X 10^3 Eosinophils # (Auto) 0.1 0.0-0.3 10^3/uL Basophils # (Auto) 0.0 0.0-0.1 10^3/uL Prothrombin Time 17.6 H 12.2-14.7 SEC INR Comment 1.5 H 0.8-1.4 Activated Partial Thromboplast Time 33 24-35 SEC My Orders Orders - CHACE HOLLAND MD Ns (Ivpb) (Sodium Chloride 0.9% Ivpb Bag (10/17/16 16:05) Diltiazem Drip (Cardizem Drip) (10/17/16 16:05) Diltiazem Injection (Cardizem Injection) (10/17/16 16:05) Cbc With Automated Diff (10/17/16 16:08) Magnesium (10/17/16 16:08) Sodium Chloride (Add-Martinez) (Ns (Add-V (10/17/16 16:06) Chest 1 View, Ap/Pa Only (10/17/16 16:08) Ekg Tracing (10/17/16 16:08) Cardiac Profile 1 (10/17/16 16:08) Comprehensive Metabolic Panel (10/17/16 16:08) Myoglobin Serum (10/17/16 16:08) Protime With Inr (10/17/16 16:08) Partial Thromboplastin Time (10/17/16 16:08) O2 (10/17/16 16:08) Monitor-Rhythm Ecg Trace Only (10/17/16 16:08) Lipid Panel (10/18/16 06:00) Aspirin Chewable Tablet (Baby Aspirin Ch (10/17/16 16:15) Saline Lock/Iv-Start (10/17/16 16:08) Sodium Chloride (Ad... W/Diltiazem Drip (10/17/16 16:15) Diltiazem Injection (Cardizem Injection) (10/17/16 16:15) Medications Given in ED Current Medications Medications Dose Ordered Sig/Jamie Route Start Time Stop Time Status Last Admin Dose Admin Aspirin 324 mg ONCE ONCE PO 10/17/16 16:15 10/17/16 16:16 DC 10/17/16 16:23 324 MG Diltiazem HCl 15 mg ONCE ONCE IVP 10/17/16 16:15 10/17/16 16:16 DC 10/17/16 16:17 15 MG Vital Signs/I&O Vital Sign - Last 12Hours 10/17/16 10/17/16 10/17/16 10/17/16 16:10 16:10 16:18 16:57 Temp 97.2 98.0 Pulse 165 142 Resp 20 20 B/P (MAP) 117/104 117/104 Pulse Ox 98 98 95 O2 Delivery Room Air Room Air Progress Note : Progress Note Seen and evaluated. IV, labs, EKG and chest x-ray ordered. He did take aspirin 81 mg earlier. Cardizem 15 mg IV and 10 mg per hour IV initiated. 170 , Patient now in sinus rhythm and chest pain free. Patient remains in sinus rhythm. Case discussed with Dr. Ortiz. He accepts patient for admission, observation status. Patient agrees with plan. ECG Initial ECG Impression Date: Oct 17, 2016 Initial ECG Impression Time: 16:07 Initial ECG Rate: 143 Initial ECG Rhythm: A Fib/Flutter Initial ECG Comparisson: Changed Comment A-fib with RVR, normal axis, no evidence of STEMI, Interpreted by me. Diagnostic Imaging Diagonstic Imaging: Xray Plain Films/CT/US/NM/MRI: chest Comments VIA [facility]. [place], [place] NAME: JHOANA ARCHULETA [facility] REC#: [id number] PT STATUS: REG ER : 1945 PHYSICIAN: CHACE HOLLAND MD ADMIT DATE: 10/17/16/ER Draft Date of Exam:10/17/16 CHEST 1 VIEW, AP/PA ONLY INDICATION: Atrial fibrillation. COMPARISON: 10/15/2016. FINDINGS: Single frontal view of the chest demonstrates normal heart size and pulmonary vascularity. The lungs are well aerated and clear. No large pleural effusion or pneumothorax is seen. The visualized osseous structures show no acute abnormalities. IMPRESSION: 1. No acute cardiopulmonary process. Dictated on workstation # [id number] Dict: 10/17/16 1641 Trans: 10/17/16 1642 [id number] Interpreted by: RUBIO ROME Electronically signed by: Departure Communication Time/Spoke to Admitting Phy: 17:19 Impression Impression: Primary Impression: Atrial fibrillation with RVR Disposition: ADMITTED INPATIENT Condition: Stable Decision to Admit Reason: Admit from ER (General) Decision to Admit/Date: Oct 18, 2016 Time/Decision to Admit Time: 17:19 Departure-Patient Inst. Referrals: NIGHAT PENDLETON DO (PCP/Family) Primary Care Physician Scripts Diltiazem HCl (Diltiazem 24Hr Cd) 180 Mg Cap.er.24h 360 MG PO DAILY, #30 CAP 5 Refills Prov: AV KEEN 10/18/16 Rivaroxaban (Xarelto) 20 Mg Tablet 20 MG PO DAILY@1700, #30 TAB 3 Refills Prov: AV KEEN 10/18/16 CHACE HOLLAND MD Oct 17, 2016 16:42
[2016-10-17 16:49] LABS: INR 1.5 (0.8-1.4); PROTHROMBIN TIME PATIENT 17.6 SEC (12.2-14.7)
[2016-10-17 16:53] LABS: ALANINE AMINOTRANSFERASE 30 U/L (0-55); ALBUMIN 3.7 G/DL (3.2-4.5); ANION GAP 9 MMOL/L (5-14); ASPARTATE AMINO TRANSFERASE 23 U/L (5-34); BILIRUBIN,TOTAL 0.4 MG/DL (0.1-1.0); BLOOD UREA NITROGEN 13 MG/DL (7-18); BUN/CREATININE RATIO 15; CALCIUM 9.2 MG/DL (8.5-10.1); CARBON DIOXIDE 24 MMOL/L (21-32); CHLORIDE 106 MMOL/L (98-107); CREATININE SERUM 0.89 MG/DL (0.60-1.30); GFR ESTIMATED > 60; GLUCOSE 202 MG/DL (70-105); MAGNESIUM 1.9 MG/DL (1.8-2.4); POTASSIUM 4.2 MMOL/L (3.6-5.0); SODIUM 139 MMOL/L (135-145); TOTAL PROTEIN 6.3 G/DL (6.4-8.2)
[2016-10-17 17:02] LABS: MYOGLOBIN SERUM 56.6 NG/ML (10.0-92.0)
[2016-10-17 17:45] VITALS: BP 133/75
[2016-10-17] MEDS ORDERED: CATHETER FLUSH 10 ML SYR IV PRN (18:15)
[2016-10-17] MEDS: DILTIAZEM DRIP 100 MG/NS 100 ML IV SCH ×2 (18:15)
[2016-10-17] MEDS: NS IV 1000 ML 1,000 ML IV SCH (18:28)
--- NOTE | 2016-10-17 18:50 | Cardiology History & Physical ---
HPI-Cardiology Cardiology H&P Date of Admission 10/17/16 Primary Care Physician Reece Hassan DO Attending Physician Genesis Cobos MD, MA FACP [facility] Consulting Physician ANA ROSA CC: Palpitations HPI: 71 yo man who developed palpitations and a feeling of chest discomfort after yard work today; took his pulse and found it to be 150 and irred; knew he was in A Fib; came to ER; was treated with iv dilt; regained NSR; with conversion to NSR the chest discomfort also resolved; currently feels well Denies chest discomfort other than with A Fib Denies shortness of breath Denies syncope or ankle swelling Denies fever or chills Review of Systems-Cardiology Review of Systems Constitutional: No malaise, No tiredness, No weight loss, No weight gain Eyes: No vision change Ears/Nose/Throat: No ear discharge, No nasal drainage, No recent hearing loss Respiratory: As described under HPI Cardiovascular: As described under HPI Gastrointestinal: No constipation, No diarrhea, No nausea, No vomiting Genitourinary: No dysuria, No hematuria, No urine frequency changes Musculoskeletal: No back pain, No joint pain Skin: No rash, No ulcerations Psychiatric/Neurological: No focal weakness, No syncope Hematologic: No bleeding abnormalities All Other Systems Reviewed Negative Unless Noted: Yes TOD-Yoyptk-Neanmz Hx Patient Social History Alcohol Use: Occasionally Uses Recreational Drug Use: No Smoking Status: Never a Smoker 2nd Hand Smoke Exposure: No Recent Foreign Travel: No Recent Infectious Disease Expo: No Immunizations Up To Date Tetanus Booster (TDap): More than 5yrs Date of Pneumonia Vaccine: May 29, 2012 Date of Influenza Vaccine: May 09, 2015 Past Medical History PMH As described under Assessment. Family Medical History Family Medical History: Reports fam h/o CAD and htn and DM Family History: Cardiovascular disease 19 FATHER, Age:93 Diabetes mellitus 19 FATHER, Age:93 FH: bladder cancer 19 FATHER, Age:93 FH: congestive heart failure 19 MOTHER, FH: leukemia PATERNAL GRANDMOTHER, FH: mental illness G8 SISTER Heart valve abnormality 19 MOTHER, Hypertension 19 FATHER, Age:93 G8 SISTER Kidney disease 19 FATHER, Age:93 Prostate cancer 19 FATHER, Age:93 Allergies and Home Medications Allergies Coded Allergies: No Known Drug Allergies (Unverified , 05/08/15) Home Medications Apixaban 5 Mg Tablet, 5 MG PO BID, (Reported) Apixaban 5 Mg Tablet, 5 MG PO BID, #60 Prescribed by: CHACE HOLLAND on 10/15/16 1528 Cinnamon Bark 500 Mg Capsule, 500 MG PO BID, (Reported) Docusate Sodium 100 Mg Capsule, 100 MG PO BID, (Reported) Esomeprazole Magnesium 22.3 Mg Capsule.dr, 22.3 MG PO DAILY, (Reported) Fluticasone Propionate 16 Gm [place], 2 SPRAYS NA DAILY PRN for ALLERGIES, ( Reported) Glucosa Torres 2Kcl/Chondroitin Torres 1 Each Capsule, 1 CAP PO BID, (Reported) Lovastatin 40 Mg Tablet, 80 MG PO DAILY, (Reported) TAKES 2 (40MG) TABLETS Metformin HCl 500 Mg Tablet, 1,000 MG PO DAILY, (Reported) TAKES 2 (500MG) TABLETS Metoprolol Succinate 100 Mg Tab.er.24h, 100 MG PO DAILY, (Reported) Multivitamin 1 Each Tablet, 1 TAB PO DAILY, (Reported) Sucralfate 1 Gm Tablet, 1 GM PO QID PRN for STOMACH UPSET, (Reported) Physical Exam-Cardiology Physical Exam Vital Signs/I&O Vital Sign - Last 12Hours 10/17/16 10/17/16 10/17/16 10/17/16 16:10 16:10 16:18 16:57 Temp 97.2 98.0 Pulse 165 142 Resp 20 20 B/P (MAP) 117/104 117/104 Pulse Ox 98 98 95 O2 Delivery Room Air Room Air 10/17/16 17:41 Temp 98.0 Pulse 66 Resp 20 Pulse Ox 95 Capillary Refill : Less Than 3 Seconds Constitutional: AAO x 3, well-developed, well-nourished HEENT: EOMI, No xanthelasmas are seen Neck: carotid pulses are 2 + bilaterally, with good upstrokes Respiratory: No accessory muscle use, lungs clear to percussion, lungs clear to auscultation Cardiovascular: regular rate-rhythm, S1 and S2 Gastrointestinal: No tender, soft, No guarding, No rebound, audible bowel sounds Extremities: No clubbing, No cyanosis, No significant edema Neurologic/Psychiatric: grossly intact, power is 5/5 both on sides Skin: No rash on exposed areas, No ulcerations on exposed areas Data Review Labs Laboratory Tests 10/17/16 16:20: White Blood Count 6.0, Red Blood Count 4.62, Hemoglobin 13.9, Hematocrit 41, Mean Corpuscular Volume 88, Mean Corpuscular Hemoglobin 30, Mean Corpuscular Hemoglobin Concent 34, Red Cell Distribution Width 12.9, Platelet Count 171, Mean Platelet Volume 11.3H, Neutrophils (%) (Auto) 63, Lymphocytes (%) (Auto) 28 , Monocytes (%) (Auto) 6, Eosinophils (%) (Auto) 2, Basophils (%) (Auto) 1, Neutrophils # (Auto) 3.8, Lymphocytes # (Auto) 1.7, Monocytes # (Auto) 0.4, Eosinophils # (Auto) 0.1, Basophils # (Auto) 0.0, Prothrombin Time 17.6H, INR Comment 1.5H, Activated Partial Thromboplast Time 33, Sodium Level 139, Potassium Level 4.2, Chloride Level 106, Carbon Dioxide Level 24, Anion Gap 9, Blood Urea Nitrogen 13, Creatinine 0.89, Estimat Glomerular Filtration Rate > 60 , BUN/Creatinine Ratio 15, Glucose Level 202H, Calcium Level 9.2, Magnesium Level 1.9, Total Bilirubin 0.4, Aspartate Amino Transf (AST/SGOT) 23, Alanine Aminotransferase (ALT/SGPT) 30, Alkaline Phosphatase 73, Myoglobin 56.6, Troponin I < 0.30, Total Protein 6.3L, Albumin 3.7 Laboratory Tests 10/17/16 16:20 A/P-Cardiology Assessment/Admission Diagnosis PAF Stroke prophylaxis with rivaroxaban Intolerance to amiodarone; maintained sinus rhythm on amiodarone in late 2014, but couldn't take it custodial because of tiredness and exhaustion Orthostatic hypotension, resolved following d/c beta-blockers Cardiac cath of 05-09-15 showed angiographically mild CAD, primarily involving the mid LAD with angiographic stenosis approx 30% and a FFR across this lesion approx 0.85, indicating hemodynamic insignificance. LVEF 60%. Elevated LVEDP suggestive of diastolic dysfunction of left ventricle, likely d/t hypertensive cardiovascular disease. 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, per Dr Hassan S/p R 2nd hammertoe surgery in early 2014 Obstructive sleep apnea, treated with CPAP, managed by Dr Burdick Chronic Lyme disease and cat scratch fever, managed by Dr Hassan Discussion and Recomendations * Change dilt to long-acting oral * Continue rivaroxaban * Monitor labs * Observe overnight on tele * I spoke with him in detail and answered questions Clinical Quality Measures AMI/AHF: ASA po Prior to arrival: Yes GENESIS COBOS MD FACP [facility]S Oct 17, 2016 18:50
[2016-10-17] MEDS ORDERED: DILTIAZEM 180 MG (CARDIZEM CD) CAP PO NR (19:00)
[2016-10-17] MEDS ORDERED: ACETAMINOPHEN 325 MG TABLET/CAPLET (TYLENOL) PO PRN (19:00)
[2016-10-17 20:00] VITALS: BP_SYST 106; BP_SYST 113; BP_DIAS 66; BP_DIAS 75
[2016-10-17 21:00] VITALS: BP 105/68
[2016-10-17] MEDS ORDERED: GABAPENTIN 300 MG (NEURONTIN) CAP PO SCH (21:00)
[2016-10-17] MEDS ORDERED: GABAPENTIN 600 MG (NEURONTIN) TAB PO SCH (21:00)
[2016-10-17 22:00] VITALS: BP 108/70
[2016-10-17 23:00] VITALS: BP 123/72
[2016-10-18] VITALS (11 sets, daily range): BP systolic 100–172; BP diastolic 65–106
[2016-10-18 04:01] LABS: BASOPHILS % (AUTO) 1 % (0-10); EOSINOPHILS # (AUTO) 0.2 10^3/uL (0.0-0.3); EOSINOPHILS % (AUTO) 5 % (0-10); LYMPHOCYTES # (AUTO) 1.8 X 10^3 (1.0-4.0); LYMPHOCYTES % (AUTO) 45 % (12-44); MEAN CORPUSCULAR HEMOGLOBIN 30 PG (25-34); MEAN CORPUSCULAR HGB CONC 34 G/DL (32-36); MEAN CORPUSCULAR VOLUME 89 FL (80-99); MONOCYTES # (AUTO) 0.3 X 10^3 (0.0-1.0); MONOCYTES % (AUTO) 8 % (0-12); NEUTROPHILS # (AUTO) 1.7 X 10^3 (1.8-7.8); NEUTROPHILS % (AUTO) 42 % (42-75); PLATELET COUNT 161 10^3/uL (130-400); RED BLOOD COUNT 4.16 10^6/uL (4.35-5.85); RED CELL DISTRIBUTION WIDTH 12.9 % (10.0-14.5); WHITE BLOOD COUNT 4.1 10^3/uL (4.3-11.0)
[2016-10-18] MEDS: DILTIAZEM DRIP 100 MG/NS 100 ML IV SCH ×2 (04:15)
[2016-10-18 05:02] LABS: ALANINE AMINOTRANSFERASE 28 U/L (0-55); ALBUMIN 3.3 G/DL (3.2-4.5); ANION GAP 9 MMOL/L (5-14); ASPARTATE AMINO TRANSFERASE 21 U/L (5-34); BILIRUBIN,TOTAL 0.4 MG/DL (0.1-1.0); BLOOD UREA NITROGEN 12 MG/DL (7-18); BUN/CREATININE RATIO 15; CALCIUM 8.3 MG/DL (8.5-10.1); CARBON DIOXIDE 23 MMOL/L (21-32); CHLORIDE 108 MMOL/L (98-107); CHOLESTEROL 157 MG/DL (< 200); CREATININE SERUM 0.79 MG/DL (0.60-1.30); DIRECT LDL 103 MG/DL (1-129); GFR ESTIMATED > 60; GLUCOSE 126 MG/DL (70-105); MAGNESIUM 1.8 MG/DL (1.8-2.4); PHOSPHORUS 4.2 MG/DL (2.3-4.7); SODIUM 140 MMOL/L (135-145); TOTAL PROTEIN 5.6 G/DL (6.4-8.2); TRIGLYCERIDES 104 MG/DL (<150); VLDL CHOLESTEROL 21 MG/DL (5-40)
[2016-10-18 05:14] LABS: MYOGLOBIN SERUM 42.1 NG/ML (10.0-92.0)
[2016-10-18] MEDS: NS IV 1000 ML 1,000 ML IV SCH (07:56)
--- NOTE | 2016-10-18 08:39 | Progress Note-Cardiology ---
Cardiology SOAP Progress Note Subjective: Sitting up in a chair at the bedside. States he feels much better. No c/o CP, SOB, palpitations, syncope or near syncope. No c/o LE edema. Wants to go home. Objective: I&O/Vital Signs Vital Sign - Last 12Hours 10/17/16 10/17/16 10/18/16 10/18/16 22:00 23:00 00:00 00:00 Temp 96.8 Pulse 58 55 Resp 16 9 B/P (MAP) 108/70 123/72 Pulse Ox 90 96 94 O2 Delivery Room Air Room Air 10/18/16 10/18/16 10/18/16 10/18/16 00:00 01:00 01:00 02:00 Pulse 61 61 54 56 Resp 20 15 21 B/P (MAP) 116/68 107/67 100/68 Pulse Ox 93 92 94 O2 Delivery Room Air Room Air Room Air 10/18/16 10/18/16 10/18/16 10/18/16 03:00 04:00 04:00 04:00 Temp 98.4 Pulse 57 63 Resp 10 18 B/P (MAP) 108/71 111/65 Pulse Ox 90 93 94 O2 Delivery Room Air Room Air 10/18/16 10/18/16 10/18/16 10/18/16 05:00 06:00 07:00 08:22 Temp 98.7 Pulse 57 56 61 70 Resp 9 26 17 B/P (MAP) 121/84 128/80 124/79 Pulse Ox 95 93 95 O2 Delivery Room Air Room Air Room Air Intake and Output 10/18/16 00:00 Intake Total 147.6 ml Output Total 200 ml Balance -52.4 ml Weight (Pounds): 225 Weight (Ounces): 0.0 Weight (Calculated Kilograms): 102.676078 Constitutional: AAO x 3, well-developed, well-nourished Respiratory: No accessory muscle use, lungs clear to percussion, lungs clear to auscultation Cardiovascular: regular rate-rhythm, S1 and S2 Gastrointestional: No tender, soft, No guarding, No rebound, audible bowel sounds Extremities: No clubbing, No cyanosis, No significant edema Neurologic/Psychiatric: grossly intact, power is 5/5 both on sides Skin: No rash on exposed areas, No ulcerations on exposed areas Results/Procedures: Labs Laboratory Tests 10/17/16 16:20: White Blood Count 6.0, Red Blood Count 4.62, Hemoglobin 13.9, Hematocrit 41, Mean Corpuscular Volume 88, Mean Corpuscular Hemoglobin 30, Mean Corpuscular Hemoglobin Concent 34, Red Cell Distribution Width 12.9, Platelet Count 171, Mean Platelet Volume 11.3H, Neutrophils (%) (Auto) 63, Lymphocytes (%) (Auto) 28 , Monocytes (%) (Auto) 6, Eosinophils (%) (Auto) 2, Basophils (%) (Auto) 1, Neutrophils # (Auto) 3.8, Lymphocytes # (Auto) 1.7, Monocytes # (Auto) 0.4, Eosinophils # (Auto) 0.1, Basophils # (Auto) 0.0, Prothrombin Time 17.6H, INR Comment 1.5H, Activated Partial Thromboplast Time 33, Sodium Level 139, Potassium Level 4.2, Chloride Level 106, Carbon Dioxide Level 24, Anion Gap 9, Blood Urea Nitrogen 13, Creatinine 0.89, Estimat Glomerular Filtration Rate > 60 , BUN/Creatinine Ratio 15, Glucose Level 202H, Calcium Level 9.2, Magnesium Level 1.9, Total Bilirubin 0.4, Aspartate Amino Transf (AST/SGOT) 23, Alanine Aminotransferase (ALT/SGPT) 30, Alkaline Phosphatase 73, Myoglobin 56.6, Troponin I < 0.30, Total Protein 6.3L, Albumin 3.7 10/17/16 22:20: Troponin I < 0.30 10/18/16 03:25: White Blood Count 4.1L, Red Blood Count 4.16L, Hemoglobin 12.5L, Hematocrit 37L , Mean Corpuscular Volume 89, Mean Corpuscular Hemoglobin 30, Mean Corpuscular Hemoglobin Concent 34, Red Cell Distribution Width 12.9, Platelet Count 161, Mean Platelet Volume 11.0H, Neutrophils (%) (Auto) 42, Lymphocytes (%) (Auto) 45H, Monocytes (%) (Auto) 8, Eosinophils (%) (Auto) 5, Basophils (%) (Auto) 1, Neutrophils # (Auto) 1.7L, Lymphocytes # (Auto) 1.8, Monocytes # (Auto) 0.3, Eosinophils # (Auto) 0.2, Basophils # (Auto) 0.0, Sodium Level 140, Potassium Level 4.0, Chloride Level 108H, Carbon Dioxide Level 23, Anion Gap 9, Blood Urea Nitrogen 12, Creatinine 0.79, Estimat Glomerular Filtration Rate > 60, BUN/ Creatinine Ratio 15, Glucose Level 126H, Calcium Level 8.3L, Magnesium Level 1.8 , Total Bilirubin 0.4, Aspartate Amino Transf (AST/SGOT) 21, Alanine Aminotransferase (ALT/SGPT) 28, Alkaline Phosphatase 65, Myoglobin 42.1, Total Protein 5.6L, Albumin 3.3, Phosphorus Level 4.2, Triglycerides Level 104, Cholesterol Level 157, LDL Cholesterol Direct 103, VLDL Cholesterol 21, HDL Cholesterol 37L A/P: Assessment: PAF Stroke prophylaxis with rivaroxaban Intolerance to amiodarone; maintained sinus rhythm on amiodarone in late 2014, 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 LVEF 60%. Elevated LVEDP suggestive of diastolic dysfunction of left ventricle, likely d/t hypertensive cardiovascular disease. 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, per Dr Hassan S/p [facility] Obstructive sleep apnea, treated with CPAP, managed by Dr Burdick Chronic Lyme disease and cat scratch fever, managed by Dr Hassan Plan: * Change dilt to long-acting oral * Continue rivaroxaban * Monitor labs * Observed overnight on tele - remains SR with a controlled rate * We have spoke with him in detail and answered questions * BB (Toprol XL) was listed as a home medication - however d/t reported intolerance he has not been taking it at home. Continue Cardizem CD. * OK to discharge home today with outpt f/u Physician Assessment Physician Assessment Lungs: clear Cor: reg A&R * As documented in our note above * I spoke with him and answered questions * He has previously not tolerated bb well and has not been taking them * He has tolerated CCB better and we now have him on oral long-acting dilt * Stroke prophylaxis is being continued * Outpatient f/u is advised Clinical Quality Measures AMI/AHF: ASA po Prior to arrival: Yes AV KEEN ANESTHESIOLOGIST ATTENDING Oct 18, 2016 08:39 STEPHANY COBOS MD FACP [facility] Oct 18, 2016 09:13
[2016-10-18] MEDS ORDERED: DILT180C84 PO (08:47)
[2016-10-18] MEDS ORDERED: RIVA20TA PO (08:47)
--- NOTE | 2016-10-18 08:49 | Discharge Inst-Cardiology ---
Discharge Inst-Cardiac Discharge Medications New Medications: Diltiazem HCl (Diltiazem 24Hr Cd) 180 Mg Cap.er.24h 360 MG PO DAILY, #30 CAP 5 Refills Rivaroxaban (Xarelto) 20 Mg Tablet 20 MG PO DAILY@1700, #30 TAB 3 Refills Continued Medications: Cinnamon Bark (Cinnamon) 500 Mg Capsule 500 MG PO BID Docusate Sodium (Stool Softener) 100 Mg Capsule 100 MG PO BID, CAP Esomeprazole Magnesium (Nexium 24Hr) 22.3 Mg Capsule.dr 22.3 MG PO DAILY Fluticasone Propionate (Flonase 0.05% Nasal [place]) 16 Gm [place] 2 SPRAYS NA DAILY PRN for ALLERGIES, NS Glucosa Torres 2Kcl/Chondroitin Torres (Glucosamine & Chondroitin Cap) 1 Each Capsule 1 CAP PO BID Lovastatin (Lovastatin 40 Mg) 40 Mg Tablet 80 MG PO DAILY TAKES 2 (40MG) TABLETS Metformin HCl (Metformin HCl) 500 Mg Tablet 1000 MG PO DAILY TAKES 2 (500MG) TABLETS Multivitamin (Multi-Vitamin Daily) 1 Each Tablet 1 TAB PO DAILY Sucralfate (Carafate) 1 Gm Tablet 1 GM PO QID PRN for STOMACH UPSET Discontinued Medications: Apixaban (Eliquis) 5 Mg Tablet 5 MG PO BID, TAB Apixaban (Eliquis) 5 Mg Tablet 5 MG PO BID, #60 TAB Metoprolol Succinate (Toprol Xl) 100 Mg Tab.er.24h 100 MG PO DAILY, TAB New, Converted or Re-Newed RX: Transmitted to Pharmacy Patient Instructions Patient Instructions: Please keep already scheduled out patient follow up appt to see AV Rouse Oct 18, 2016 08:49
[2016-10-18] MEDS ORDERED: DILTIAZEM 180 MG (CARDIZEM CD) CAP PO SCH (09:00)
--- NOTE | 2016-10-18 09:15 | Cardiology Discharge Summary ---
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 LVEF 60%. Elevated LVEDP suggestive of diastolic dysfunction of left ventricle, likely d/t hypertensive cardiovascular disease. 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 in early 2014 Obstructive sleep apnea, treated with CPAP, managed by Dr Burdick Chronic Lyme disease and cat scratch fever, managed by Dr Hassan Chief Complaint/HPI Chief Complaint/HPI CC: Palpitations HPI: 71 yo man who developed palpitations and a feeling of chest discomfort after yard work today; took his pulse and found it to be 150 and irred; knew he was in A Fib; came to ER; was treated with iv dilt; regained NSR; with conversion to NSR the chest discomfort also resolved; currently feels well Denies chest discomfort other than with A Fib Denies shortness of breath Denies syncope or ankle swelling Denies fever or chills Stable at discharge. Please refer to our progress note of 10/18/16 Discharge Summary Procedures None. Hospital Course Pending Labs Laboratory Tests 10/18/16 03:25: White Blood Count 4.1, Red Blood Count 4.16, Hemoglobin 12.5, Hematocrit 37, Mean Corpuscular Volume 89, Mean Corpuscular Hemoglobin 30, Mean Corpuscular Hemoglobin Concent 34, Red Cell Distribution Width 12.9, Platelet Count 161, Mean Platelet Volume 11.0, Neutrophils (%) (Auto) 42, Lymphocytes (%) (Auto) 45 , Monocytes (%) (Auto) 8, Eosinophils (%) (Auto) 5, Basophils (%) (Auto) 1, Neutrophils # (Auto) 1.7, Lymphocytes # (Auto) 1.8, Monocytes # (Auto) 0.3, Eosinophils # (Auto) 0.2, Basophils # (Auto) 0.0, Sodium Level 140, Potassium Level 4.0, Chloride Level 108, Carbon Dioxide Level 23, Anion Gap 9, Blood Urea Nitrogen 12, Creatinine 0.79, Estimat Glomerular Filtration Rate > 60, BUN/ Creatinine Ratio 15, Glucose Level 126, Calcium Level 8.3, Phosphorus Level 4.2 , Magnesium Level 1.8, Total Bilirubin 0.4, Aspartate Amino Transf (AST/SGOT) 21 , Alanine Aminotransferase (ALT/SGPT) 28, Alkaline Phosphatase 65, Myoglobin 42.1, Total Protein 5.6, Albumin 3.3, Triglycerides Level 104, Cholesterol Level 157, LDL Cholesterol Direct 103, VLDL Cholesterol 21, HDL Cholesterol 37, Thyroid Stimulating Hormone (TSH) [Pending] Discussion & Recommendations Home Medications Reviewed patient Home Medication Reconciliation Form Discharge Home Medications: Reviewed and agree with Discharge Medication list on patient's Discharge Instruction sheet Clinical Quality Measures AMI/AHF: ASA po Prior to arrival: Yes DVT/VTE Risk/Contraindication: Risk Factor Score Per Nursin RFS Level Per Nursing on Admit: 2=Moderate STEPHANY COBOS MD FACP FAC CCDS Oct 18, 2016 09:15
[2016-10-18] MEDS ORDERED: RIVAROXABAN 20 MG TABLET (XARELTO) PO SCH (17:00)
[2016-10-18] MEDS ORDERED: metFORMIN XR 500 MG (GLUCOPHAGE XR) TAB PO SCH (18:00)
--- OUTSIDE RECORDS SUMMARY | 2016-11-10 06:52 | XMS REPORT | Continuity of Care Document ---
Author Author [facility] Organization [facility] Address Unknown Phone Unavailable Allergies Active Description Code Type Severity Reaction Onset Reported/Identified Relationship to Patient Clinical Status Yes No Known Drug Allergies [id number] Drug Allergy Unknown N/ A 05/08/2015 Medications [...] CCDS Ot I25.10 ATHSCL HEART DISEASE OF [place] CORONARY 05/10/2015 CHANDRIKA BIRD FACC, ALI FACP CCDS Ot R07.89 OTHER CHEST PAIN 05/10/2015 CHANDRIKA BIRD FACC, ALI FACP CCDS Ot R73.09 OTHER ABNORMAL GLUCOSE 05/10/2015 CHANDRIKA BIRD FACC, ALI FACP CCDS Ot R94.39 ABNORMAL RESULT OF OTHER CARDIOVASCULAR 05/10/2015 CHANDRIKA HUTCHINSC, ALI FACP CCDS Ot Z68.33 BODY MASS INDEX (BMI) 33.0-33.9 , ADULT 05/10/2015 CHANDRIKA HUTCHINSC, ALI FACP CCDS Ot Z79.899 OTHER EXTRUDER OPERATOR MULTIPLE (CURRENT) DRUG THERAPY 05/11/2015 Ot 780.4 05/11/2015 [...] ALI FACP CCDS Ot G47.30 05/11/2015 CHANDRIKA BIDR FACC, ALI FACP CCDS Ot I48.91 05/11/2015 [...] DO, Ot I25.10 ATHSCL HEART DISEASE OF [place] CORONARY 06/13/2015 NIGHAT PENDLETON DO, Ot I48.0 PAROXYSMAL ATRIAL FIBRILLATION 06/13/2015 NIGHAT PENDLETON DO, Ot K21.9 GASTRO-ESOPHAGEAL REFLUX DISEASE WITHOUT 06/13/2015 NIGHAT PENDLETON DO, Ot Z68.34 BODY MASS INDEX (BMI) 34.0-34.9, ADULT 06/13/2015 NIGHAT PENDLETON DO, Ot Z79.01 DETENTION (CURRENT) USE OF ANTICOAGULANT 06/13/2015 NIGHAT PENDLETON [...] FACC, ALI FACP CCDS Ot E78.5 07/31/2015 CHNADRIKA BIRD FACC, ALI FACP CCDS Ot G47.30 [...] CCDS Ot R07.89 08/28/2015 AV KEEN L FITTING ROOM INSPECTOR Ot I10 08/28/2015 JOHN KEENHER L FITTING ROOM INSPECTOR Ot I48.0 08/28/2015 OFEMA AV L FITTING ROOM INSPECTOR Ot R11.0 08/28/2015 BAIMA, AV L FITTING ROOM INSPECTOR Ot R53.83 08/31/2015 BAIMA AV L FITTING ROOM INSPECTOR Ot I10 08/31/2015 BAIMA, AV L FITTING ROOM INSPECTOR Ot I48.0 08/31/2015 BAIMA, AV L FITTING ROOM INSPECTOR Ot R11.0 08/31/2015 BAIMA, AV L FITTING ROOM INSPECTOR Ot R53.83 10/26/2015 CAYETANO CAMACHO DO Ot [...] OTH INDUSTRIAL AND CONSTRUCTION AREA 11/20/2015 KENNY DRAEPR APRN Ot Y99.0 CIVILIAN ACTIVITY DONE FOR INCOME OR PAY 11/20/2015 KENNY DRAPER APRN Ot Z79.01 EXTRUDER OPERATOR MULTIPLE (CURRENT) USE OF ANTICOAGULANT 11/20/2015 KENNY DRAPER APRN Ot Z79.82 DETENTION (CURRENT) USE OF ASPIRIN 11/20/2015 Ot 780.4 [...] R07.89 OTHER CHEST PAIN 11/20/2015 AV KEEN FITTING ROOM INSPECTOR Ot I10 ESSENTIAL (PRIMARY) HYPERTENSION 11/20/2015 AV KEEN FITTING ROOM INSPECTOR Ot I48.0 PAROXYSMAL ATRIAL FIBRILLATION 11/20/2015 AV KEEN FITTING ROOM INSPECTOR Ot R11.0 NAUSEA 11/20/2015 AV KEEN FITTING ROOM INSPECTOR Ot R53.83 OTHER FATIGUE 11/20/2015 CAYETANO CAMACHO DO Ot G47.33 OBSTRUCTIVE SLEEP APNEA (ADULT) (PEDIATR 11/20/2015 CAYETANO CAMACHO DO Ot I48.0 PAROXYSMAL ATRIAL [...] PAY 11/21/2015 KENNY DRAPER APRN Ot Z79.01 DETENTION (CURRENT) USE OF ANTICOAGULANT 11/21/2015 KENNY DRAPER APRN Ot Z79.82 DETENTION (CURRENT) USE OF ASPIRIN 11/22/2015 CAYETANO CAMACHO [...] I10 ESSENTIAL (PRIMARY) HYPERTENSION 11/23/2015 OFEAV JOHNSON FITTING ROOM INSPECTOR Ot I48.0 PAROXYSMAL ATRIAL FIBRILLATION 11/23/2015 OFEAV JOHNSON FITTING ROOM INSPECTOR Ot R11.0 NAUSEA 11/23/2015 OFEAV JOHNSON FITTING ROOM INSPECTOR Ot R53.83 OTHER FATIGUE 11/23/2015 DOUGCAYETANO EGAN [...] R07.89 OTHER CHEST PAIN 12/14/2015 OFEAV JOHNSON FITTING ROOM INSPECTOR Ot I10 ESSENTIAL (PRIMARY) HYPERTENSION 12/14/2015 OFEAV JOHNSON FITTING ROOM INSPECTOR Ot I48.0 PAROXYSMAL ATRIAL FIBRILLATION 12/14/2015 OFEAV JOHNSON FITTING ROOM INSPECTOR Ot R11.0 NAUSEA 12/14/2015 OFEAV JOHNSON FITTING ROOM INSPECTOR Ot R53.83 OTHER FATIGUE 12/14/2015 CAYETANO CAMACHO [...] R07.89 OTHER CHEST PAIN 08/06/2016 AV KEEN FITTING ROOM INSPECTOR Ot I10 ESSENTIAL (PRIMARY) HYPERTENSION 08/06/2016 AV KEEN FITTING ROOM INSPECTOR Ot I48.0 PAROXYSMAL ATRIAL FIBRILLATION 08/06/2016 AV KEEN FITTING ROOM INSPECTOR Ot R11.0 NAUSEA 08/06/2016 AV KEEN FITTING ROOM INSPECTOR Ot R53.83 OTHER FATIGUE 08/06/2016 CAYETANO CAMACHO [...] Ot E78.5 HYPERLIPIDEMIA, UNSPECIFIED 08/14/[address] [facility], ALI FACP CCDS Ot G47.30 SLEEP APNEA, UNSPECIFIED 08/14/2016 CHANDRIKA HUTCHINS, ALI FACP CCDS Ot I48.91 UNSPECIFIED ATRIAL FIBRILLATION 08/14/2016 CHANDRIKA HUTCHINS, ALI FACP CCDS Ot R07.89 OTHER CHEST PAIN 08/14/2016 AV KEEN FITTING ROOM INSPECTOR Ot I10 ESSENTIAL (PRIMARY) HYPERTENSION 08/14/2016 AV KEEN FITTING ROOM INSPECTOR Ot I48.0 PAROXYSMAL ATRIAL FIBRILLATION 08/14/2016 AV KEEN FITTING ROOM INSPECTOR Ot R11.0 NAUSEA 08/14/2016 AV KEEN FITTING ROOM INSPECTOR Ot R53.83 OTHER FATIGUE 08/14/2016 CAYETANO CAMACHO [...] MD Ot I25.10 ATHSCL HEART DISEASE OF [place] CORONARY 10/15/2016 CHACE HOLLAND MD Ot I48.0 PAROXYSMAL ATRIAL FIBRILLATION 10/15/2016 CHACE HOLLAND MD Ot Z79.01 EXTRUDER OPERATOR MULTIPLE (CURRENT) USE OF ANTICOAGULANT 10/15/2016 CHACE HOLLAND MD Ot Z79.84 EXTRUDER OPERATOR MULTIPLE (CURRENT) USE OF ORAL HYPOGLYC 10/15/2016 CHACE HOLLAND MD Ot Z79.899 OTHER EXTRUDER OPERATOR MULTIPLE (CURRENT) DRUG THERAPY 10/16/2016 CHACE HOLLAND MD Ot E11.9 TYPE 2 DIABETES MELLITUS WITHOUT COMPLIC 10/16/2016 CHACE HOLLAND MD Ot I10 ESSENTIAL (PRIMARY) HYPERTENSION 10/16/2016 CHACE HOLLAND MD Ot I25.10 ATHSCL HEART DISEASE OF [place] CORONARY 10/16/2016 CHACE HOLLAND MD Ot I48.0 PAROXYSMAL ATRIAL FIBRILLATION 10/16/2016 CHACE HOLLAND MD Ot Z79.01 DETENTION (CURRENT) USE OF ANTICOAGULANT 10/16/2016 CHACE HOLLAND MD Ot Z79.84 DETENTION (CURRENT) USE OF ORAL HYPOGLYC 10/16/2016 CHACE HOLLAND MD Ot Z79.899 OTHER DETENTION (CURRENT) DRUG THERAPY 10/18/2016 CHANDRIKA BIRD FACC, [...] CCDS Ot I25.10 ATHSCL HEART DISEASE OF [place] CORONARY 10/18/2016 CHANDRIKA BIRD FACC, ALI FACP CCDS Ot I48.91 UNSPECIFIED ATRIAL FIBRILLATION 10/18/2016 CHANDRIKA BIRD FACC, ALI FACP CCDS Ot K21.9 GASTRO-ESOPHAGEAL REFLUX DISEASE WITHOUT 10/18/2016 CHANDRIKA MD FACC, ALI FACP CCDS Ot Z79.84 EXTRUDER OPERATOR MULTIPLE (CURRENT) USE OF ORAL HYPOGLYC Procedures Results [...] Status Pt. 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 [facility] ER HEAD INJ [id number] 06/30/2015 21:05:00 2014 07:07:00 DIS Outpatient NIGHAT PENDLETON DO [facility] SLEEP SNORING,,DAYTIME SLEEPINESS,CPAP FAILURE [id number] 06/11/2015 17:13:00 2014 11:35:00 DIS Inpatient NIGHAT PENDLETON DO [facility] ICU AFIB WITH RVR [id number] 05/08/2015 16:29:00 2014 09:53:00 DIS Outpatient CHANDRIKA BIRD FACC, STEPHANY FACP CCDS [facility] CATH CHEST PAIN [id number] 05/05/2015 07:38:00 2014 23:59:59 CLS Outpatient CHANDRIKA BIRD FACC, ALI FACP CCDS [facility] CARD PAF,BRANDI,OBESITY,HLP,CHEST DISCOMFORT [id number] 05/04/2015 07:43:00 2014 23:59:59 CLS Outpatient CHANDRIKA BIRD FACC, ALI FACP CCDS [facility] CARD PAF,BRANDI,OBESITY,HLP,CHEST DISCOMFORT [id number] 04/16/2015 18:53:00 2014 20:48:00 DIS Emergency YAMILET BIRD, SABAS [place] [facility] ER CHEST PAIN [id number] 04/06/2015 08:32:00 2014 14:05:00 DIS Outpatient REMINGTON DPM, MARCEL Q [facility] SDC CAPSULITIS, HYPERTROPHIC RIGHT SECOND METATARSAL [id number] 03/30/2015 13:09:00 2014 23:59:59 CLS Outpatient REMINGTON ISIS MARCEL Antonio [facility] PREOP CAPSULITIS, HYPERTROPHIC RIGHT SECOND METATARSAL [id number] 11/12/2013 19:48:00 2013 06:50:00 DIS Outpatient FAUSTINA ALMONTEP [facility] SLEEP BRANDI,UNSPECIFIED SLEEP DISTURBANCE [id number] 12/02/2012 20:14:00 2012 06:30:00 DIS Outpatient NIGHAT PENDLETON DO [facility] SLEEP SNORING,HYPERTENSION, EXCESSIVE DAYTIME SLEEPINESS [id number] 08/19/2016 12:15:00 ACT Outpatient NIGHAT PENDLETON DO [facility] CARD R10.13 [id number] 08/06/2016 09:23:00 ACT Outpatient NIGHAT PENDLETON DO [facility] RAD R10.13 [id number] 10/25/2015 09:00:00 ACT Outpatient CAYETANO CAMACHO DO [facility] RT SOA, DYSPNEA, [id number] 07/31/2015 11:32:00 ACT Outpatient AV KEEN [facility] CARD AFIB, HTN [id number] 09/15/2012 10:37:00 Document Registration [id number] 06/24/2012 08:17:00 Document Registration [id number] 06/17/2012 07:25:00 Document Registration [id number] 05/15/2012 10:45:00 Document Registration [id number] 09/13/2011 06:07:00 Document Registration [id number] 12/14/2010 12:57:00 Document Registration [id number] 11/17/2010 11:02:00 Document Registration
--- OUTSIDE RECORDS SUMMARY | 2016-11-10 07:03 | XMS REPORT | Continuity of Care Document ---
Author Author [facility] Organization [facility] Address Unknown Phone Unavailable Allergies Active Description Code Type Severity Reaction Onset Reported/Identified Relationship to Patient Clinical Status Yes No Known Drug Allergies [id number] Drug Allergy Unknown N/ A 05/08/2015 Medications [...] DPM, MARCEL Q Ot V74.8 04/16/2015 YAMILET BRID, SABAS [place] Ot 427.31 ATRIAL FIBRILLATION 04/16/2015 [...] CCDS Ot I25.10 ATHSCL HEART DISEASE OF [place] CORONARY 05/10/2015 CHANDRIKA BIRD FACC, ALI FACP CCDS Ot R07.89 OTHER CHEST PAIN 05/10/2015 CHANDRIKA BIRD FACC, ALI FACP CCDS Ot R73.09 OTHER ABNORMAL GLUCOSE 05/10/2015 CHANDRIKA BIRD FACC, ALI FACP CCDS Ot R94.39 ABNORMAL RESULT OF OTHER CARDIOVASCULAR 05/10/2015 CHANDRIKA HUTCHINSC, ALI FACP CCDS Ot Z68.33 BODY MASS INDEX (BMI) 33.0-33.9 , ADULT 05/10/2015 CHANDRIKA HUTCHINSC, ALI FACP CCDS Ot Z79.899 OTHER TEMPER MILL ROLLER (CURRENT) DRUG THERAPY 05/11/2015 Ot 780.4 05/11/2015 [...] DO, Ot I25.10 ATHSCL HEART DISEASE OF [place] CORONARY 06/13/2015 NIGHAT PENDLETON DO, Ot I48.0 PAROXYSMAL ATRIAL FIBRILLATION 06/13/2015 NIGHAT PENDLETON DO, Ot K21.9 GASTRO-ESOPHAGEAL REFLUX DISEASE WITHOUT 06/13/2015 NIGHAT PENDLETON DO, Ot Z68.34 BODY MASS INDEX (BMI) 34.0-34.9, ADULT 06/13/2015 NIGHAT PENDLETON DO, Ot Z79.01 RESIDENTIAL (CURRENT) USE OF ANTICOAGULANT 06/13/2015 NIGHAT PENDLETON [...] CCDS Ot R07.89 08/28/2015 AV KEEN L MANPOWER DEVELOPMENT MANAGER Ot I10 08/28/2015 JOHN KEENHER L MANPOWER DEVELOPMENT MANAGER Ot I48.0 08/28/2015 OFEMA AV L MANPOWER DEVELOPMENT MANAGER Ot R11.0 08/28/2015 BAIMA, AV L MANPOWER DEVELOPMENT MANAGER Ot R53.83 08/31/2015 BAIMA AV L MANPOWER DEVELOPMENT MANAGER Ot I10 08/31/2015 BAIMA, AV L MANPOWER DEVELOPMENT MANAGER Ot I48.0 08/31/2015 BAIMA, AV L MANPOWER DEVELOPMENT MANAGER Ot R11.0 08/31/2015 BAIMA, AV L MANPOWER DEVELOPMENT MANAGER Ot R53.83 10/26/2015 CAYETANO CAMACHO DO Ot [...] PAY 11/20/2015 KENNY DRAPER APRN Ot Z79.01 TEMPER MILL ROLLER (CURRENT) USE OF ANTICOAGULANT 11/20/2015 KENNY DRAPER APRN Ot Z79.82 RESIDENTIAL (CURRENT) USE OF ASPIRIN 11/20/2015 Ot 780.4 [...] R07.89 OTHER CHEST PAIN 11/20/2015 AV KEEN MANPOWER DEVELOPMENT MANAGER Ot I10 ESSENTIAL (PRIMARY) HYPERTENSION 11/20/2015 AV KEEN MANPOWER DEVELOPMENT MANAGER Ot I48.0 PAROXYSMAL ATRIAL FIBRILLATION 11/20/2015 AV KEEN MANPOWER DEVELOPMENT MANAGER Ot R11.0 NAUSEA 11/20/2015 AV KEEN MANPOWER DEVELOPMENT MANAGER Ot R53.83 OTHER FATIGUE 11/20/2015 CAYETANO CAMACHO [...] PAY 11/21/2015 KENNY DRAPER APRN Ot Z79.01 RESIDENTIAL (CURRENT) USE OF ANTICOAGULANT 11/21/2015 KENNY DRAPER APRN Ot Z79.82 RESIDENTIAL (CURRENT) USE OF ASPIRIN 11/22/2015 CAYETANO CAMACHO [...] I10 ESSENTIAL (PRIMARY) HYPERTENSION 11/23/2015 OFEAV JOHNSON MANPOWER DEVELOPMENT MANAGER Ot I48.0 PAROXYSMAL ATRIAL FIBRILLATION 11/23/2015 OFEAV JOHNSON MANPOWER DEVELOPMENT MANAGER Ot R11.0 NAUSEA 11/23/2015 OFEAV JOHNSON MANPOWER DEVELOPMENT MANAGER Ot R53.83 OTHER FATIGUE 11/23/2015 DOUGCAYETANO EGAN [...] CCDS Ot E78.5 HYPERLIPIDEMIA, UNSPECIFIED 12/14/2015 CHANDRIKA BRID FACC, STEPHANY FACP CCDS Ot G47.30 SLEEP [...] R07.89 OTHER CHEST PAIN 12/14/2015 OFEAV JOHNSON MANPOWER DEVELOPMENT MANAGER Ot I10 ESSENTIAL (PRIMARY) HYPERTENSION 12/14/2015 OFEAV JOHNSON MANPOWER DEVELOPMENT MANAGER Ot I48.0 PAROXYSMAL ATRIAL FIBRILLATION 12/14/2015 OFEAV JOHNSON MANPOWER DEVELOPMENT MANAGER Ot R11.0 NAUSEA 12/14/2015 OFEAV JOHNSON MANPOWER DEVELOPMENT MANAGER Ot R53.83 OTHER FATIGUE 12/14/2015 CAYETANO CAMACHO [...] R07.89 OTHER CHEST PAIN 08/06/2016 AV KEEN MANPOWER DEVELOPMENT MANAGER Ot I10 ESSENTIAL (PRIMARY) HYPERTENSION 08/06/2016 AV KEEN MANPOWER DEVELOPMENT MANAGER Ot I48.0 PAROXYSMAL ATRIAL FIBRILLATION 08/06/2016 AV KEEN MANPOWER DEVELOPMENT MANAGER Ot R11.0 NAUSEA 08/06/2016 AV KEEN MANPOWER DEVELOPMENT MANAGER Ot R53.83 OTHER FATIGUE 08/06/2016 CAYETANO CAMACHO [...] Ot E78.5 HYPERLIPIDEMIA, UNSPECIFIED 08/14/[address] [facility], ALI FACP CCDS Ot G47.30 SLEEP APNEA, UNSPECIFIED 08/14/2016 CHANDRIKA HUTCHINS, ALI FACP CCDS Ot I48.91 UNSPECIFIED ATRIAL FIBRILLATION 08/14/2016 CHANDRIKA HUTCHINS, ALI FACP CCDS Ot R07.89 OTHER CHEST PAIN 08/14/2016 AV KEEN MANPOWER DEVELOPMENT MANAGER Ot I10 ESSENTIAL (PRIMARY) HYPERTENSION 08/14/2016 AV KEEN MANPOWER DEVELOPMENT MANAGER Ot I48.0 PAROXYSMAL ATRIAL FIBRILLATION 08/14/2016 AV KEEN MANPOWER DEVELOPMENT MANAGER Ot R11.0 NAUSEA 08/14/2016 AV KEEN MANPOWER DEVELOPMENT MANAGER Ot R53.83 OTHER FATIGUE 08/14/2016 CAYETANO CAMACHO [...] MD Ot I25.10 ATHSCL HEART DISEASE OF [place] CORONARY 10/15/2016 CHACE HOLLAND MD Ot I48.0 PAROXYSMAL ATRIAL FIBRILLATION 10/15/2016 CHACE HOLLAND MD Ot Z79.01 TEMPER MILL ROLLER (CURRENT) USE OF ANTICOAGULANT 10/15/2016 CHACE HOLLAND MD Ot Z79.84 TEMPER MILL ROLLER (CURRENT) USE OF ORAL HYPOGLYC 10/15/2016 CHACE HOLLAND MD Ot Z79.899 OTHER TEMPER MILL ROLLER (CURRENT) DRUG THERAPY 10/16/2016 CHACE HOLLAND MD Ot E11.9 TYPE 2 DIABETES MELLITUS WITHOUT COMPLIC 10/16/2016 CHACE HOLLAND MD Ot I10 ESSENTIAL (PRIMARY) HYPERTENSION 10/16/2016 CHACE HOLLAND MD Ot I25.10 ATHSCL HEART DISEASE OF [place] CORONARY 10/16/2016 CHACE HOLLAND MD Ot I48.0 PAROXYSMAL ATRIAL FIBRILLATION 10/16/2016 CHACE HOLLAND MD Ot Z79.01 RESIDENTIAL (CURRENT) USE OF ANTICOAGULANT 10/16/2016 CHACE HOLLAND MD Ot Z79.84 RESIDENTIAL (CURRENT) USE OF ORAL HYPOGLYC 10/16/2016 CHACE HOLLAND MD Ot Z79.899 OTHER RESIDENTIAL (CURRENT) DRUG THERAPY 10/18/2016 CHANDRIKA IBRD FACC, STEPHANY FACP CCDS Ot E11.9 TYPE 2 DIABETES MELLITUS WITHOUT COMPLIC 10/18/2016 CHANDRIKA BIRD FACC, STEPHANY FACP CCDS Ot E78.5 HYPERLIPIDEMIA, UNSPECIFIED 10/18/2016 CHANDRIKA BIRD FACC, ALI FACP CCDS Ot G47.33 OBSTRUCTIVE SLEEP APNEA (ADULT) (PEDIATR 10/18/2016 CHANDRIKA IBRD FACC, ALI FACP CCDS Ot I10 ESSENTIAL (PRIMARY) HYPERTENSION 10/18/2016 CHANDRIKA BIRD FACC, STEPHANY FACP CCDS Ot I25.10 ATHSCL HEART DISEASE OF [place] CORONARY 10/18/2016 CHANDRIKA BIRD FACC, ALI FACP CCDS Ot I48.91 UNSPECIFIED ATRIAL FIBRILLATION 10/18/2016 CHANDRIKA BIRD FACC, ALI FACP CCDS Ot K21.9 GASTRO-ESOPHAGEAL REFLUX DISEASE WITHOUT 10/18/2016 CHANDRIKA MD FACC, ALI FACP CCDS Ot Z79.84 TEMPER MILL ROLLER (CURRENT) USE OF ORAL HYPOGLYC Procedures Results [...] Status Pt. Type Provider Facility Loc./Unit Complaint [id number] 10/17/2016 17:20:00 2016 10:15:00 DIS Inpatient CHANDRIKA BIRD FACAga, ALI FACP CCDS [facility] ICU AFIB W/ RVR, CHEST PAIN [id number] 10/15/2016 11:40:00 2016 15:33:00 DIS Emergency CHACE HOLLAND MD [facility] ER IRR HEART RATE [id number] 11/20/2015 17:11:00 2015 17:57:00 DIS Emergency KENNY DRAPER ASSEMBLER SURGICAL GARMENT [facility] ER HEAD INJ [id number] 06/30/2015 21:05:00 2014 07:07:00 DIS Outpatient NIGHAT PENDLETON DO [facility] SLEEP SNORING,,DAYTIME SLEEPINESS,CPAP FAILURE [id number] 06/11/2015 17:13:00 2014 11:35:00 DIS Inpatient NIGHAT PENDLETON DO [facility] ICU AFIB WITH RVR [id number] 05/08/2015 16:29:00 2014 09:53:00 DIS Outpatient CHANDRIKA BIRD FACC, STEPHANY FACP CCDS [facility] CATH CHEST PAIN [id number] 05/05/2015 07:38:00 2014 23:59:59 CLS Outpatient CHANDRIKA BIRD FACC, ALI FACP CCDS [facility] CARD PAF,BRANDI,OBESITY,HLP,CHEST DISCOMFORT [id number] 05/04/2015 07:43:00 2014 23:59:59 CLS Outpatient CHANDRIKA BIRD FACC, ALI FACP CCDS [facility] CARD PAF,BRANDI,OBESITY,HLP,CHEST DISCOMFORT [id number] 04/16/2015 18:53:00 2014 20:48:00 DIS Emergency YAMILET BIRD, SABAS [place] [facility] ER CHEST PAIN [id number] 04/06/2015 08:32:00 2014 14:05:00 DIS Outpatient REMINGTON DPM, MARCEL Q [facility] SDC CAPSULITIS, HYPERTROPHIC RIGHT SECOND METATARSAL [id number] 03/30/2015 13:09:00 2014 23:59:59 CLS Outpatient REMINGTON ISIS MARCEL Antonio [facility] PREOP CAPSULITIS, HYPERTROPHIC RIGHT SECOND METATARSAL [id number] 11/12/2013 19:48:00 2013 06:50:00 DIS Outpatient FAUSTINA ALMONTEP [facility] SLEEP BRANDI,UNSPECIFIED SLEEP DISTURBANCE [id number] 12/02/2012 20:14:00 2012 06:30:00 DIS Outpatient NIGHAT PENDLETON DO [facility] SLEEP SNORING,HYPERTENSION, EXCESSIVE DAYTIME SLEEPINESS [id number] 08/19/2016 12:15:00 ACT Outpatient NIGHAT PENDLETON DO [facility] CARD R10.13 [id number] 08/06/2016 09:23:00 ACT Outpatient NIGHAT PENDLETON DO [facility] RAD R10.13 [id number] 10/25/2015 09:00:00 ACT Outpatient CAYETANO CAMACHO DO [facility] RT SOA, DYSPNEA, [id number] 07/31/2015 11:32:00 ACT Outpatient AV KEEN [facility] CARD AFIB, HTN [id number] 09/15/2012 10:37:00 Document Registration [id number] 06/24/2012 08:17:00 Document Registration [id number] 06/17/2012 07:25:00 Document Registration [id number] 05/15/2012 10:45:00 Document Registration [id number] 09/13/2011 06:07:00 Document Registration [id number] 12/14/2010 12:57:00 Document Registration [id number] 11/17/2010 11:02:00 Document Registration
== END 2016-10-18 08:48 | disposition home or self-care (01) ==
LOC: DELPENDDIS → EDUNIT# 16:00 → ER 16:02 → ICU 17:20 → UNDOADMOB 17:20 → ICU 17:45 → UNDODISOB 10-18 10:15
PROVIDERS: ADMIT Internal Medicine Cardiovascular Disease; ATTEND Internal Medicine Cardiovascular Disease
DX: I48.91 Unspecified atrial fibrillation (principal); G47.33 Obstructive sleep apnea (adult) (pediatric); I25.10 Atherosclerotic heart disease of native coronary artery without angina pectoris; E11.9 Type 2 diabetes mellitus without complications; E78.5 Hyperlipidemia, unspecified; I10 Essential (primary) hypertension; K21.9 Gastro-esophageal reflux disease without esophagitis; Z79.84 Long term (current) use of oral hypoglycemic drugs
CPT/HCPCS: 36415; 71010; 80053; 80061; 83735; 83874; 84100; 84443; 84484; 85025; 85610; 85730; 93005; 93041; 96365; G0378

== ENCOUNTER 2017-01-12 17:15 | Emergency (ER) | payer MEDICARE ==
[~2017-01-12] VITALS: Ht 177.8 cm; Wt 102.1 kg
[~2017-01-12 17:15] MED LIST changes: +DILT180C84 PO; +RIVA20TA PO
--- NOTE | 2017-01-12 17:43 | ED Back Pain ---
General Chief Complaint: Back Problems Stated Complaint: BACK SPASMS Nursing Triage Note: to ER with chronic intermittent back pain and spasms x 1 year. Patient reports recently seeing Dr. Hassan for the back pain, and had a shot in that area, but has continued to get worse. Nursing Sepsis Screen: No Definite Risk Source of Information: Patient Exam Limitations: No Limitations History of Present Illness Time Seen by Provider: 17:20 Initial Comments This 71-year-old gentleman presents to the emergency room with complaints of left lower back pain and spasms intermittently over the past year. He saw Dr. Hassan on Friday who reportedly noted a muscle spasm. She was given an injection which she believes to have been a steroid. He took 2 ibuprofen and 2 Aleve at 16:30. He has not had much relief. He has difficulty ambulating due to the pain. He denies any lower extremity weakness, bowel dysfunction, or bladder dysfunction. Allergies and Home Medications Allergies Coded Allergies: No Known Drug Allergies (Unverified , 05/08/15) Home Medications Cinnamon Bark 500 Mg Capsule, 500 MG PO BID, (Reported) Cyclobenzaprine HCl 10 Mg Tablet, 10 MG PO TID PRN for SPASMS, #20 Prescribed by: SABAS IVERSON on 01/12/171743 Diltiazem HCl 180 Mg Cap.er.24h, 360 MG PO DAILY, #30 Ref 5 Prescribed by: AV KEEN on 10/18/16 0847 Docusate Sodium 100 Mg Capsule, 100 MG PO BID, (Reported) Esomeprazole Magnesium 22.3 Mg Capsule.dr, 22.3 MG PO DAILY, (Reported) Fluticasone Propionate 16 Gm [place], 2 SPRAYS NA DAILY PRN for ALLERGIES, ( Reported) Glucosa Torres 2Kcl/Chondroitin Torres 1 Each Capsule, 1 CAP PO BID, (Reported) Hydrocodone/Acetaminophen 1 Each Tablet, 1 EACH PO Q4H PRN for PAIN, #20 Prescribed by: SABAS IVERSON on 01/12/171743 Lovastatin 40 Mg Tablet, 80 MG PO DAILY, (Reported) TAKES 2 (40MG) TABLETS Metformin HCl 500 Mg Tablet, 1,000 MG PO DAILY, (Reported) TAKES 2 (500MG) TABLETS Multivitamin 1 Each Tablet, 1 TAB PO DAILY, (Reported) Prednisone 20 Mg Tab, 20 MG PO DAILY, #4 Prescribed by: SABAS IVERSON on 01/12/17 1744 Rivaroxaban 20 Mg Tablet, 20 MG PO DAILY@1700, #30 Ref 3 Prescribed by: AV KEEN on 10/18/16 0847 Constitutional: no symptoms reported EENTM: no symptoms reported Respiratory: no symptoms reported Cardiovascular: no symptoms reported Gastrointestinal: no symptoms reported Genitourinary: no symptoms reported Musculoskeletal: see HPI Skin: no symptoms reported Psychiatric/Neurological: No Symptoms Reported Past Poaxqbb-Zfmwjq-Ezrpwj Hx Patient Social History Alcohol Use: Denies Use Recreational Drug Use: No Smoking Status: Never a Smoker 2nd Hand Smoke Exposure: No Recent Foreign Travel: No Contact w/Someone Who Travel: No Recent Infectious Disease Expo: No Recent Hopitalizations: No Immunizations Up To Date Tetanus Booster (TDap): More than 5yrs Date of Pneumonia Vaccine: Apr 28, 2016 Date of Influenza Vaccine: May 19, 2016 Surgeries HX Surgeries: Yes (STONE RETRIEVAL, HAMMER TOE REPAIR, HEART CATH) Surgeries: Orthopedic Respiratory Hx Respiratory Disorders: Yes (CPAP WITH O2) Respiratory Disorders: Sleep Apnea Cardiovascular Hx Cardiac Disorders: Yes (recent abnormal stress test) Cardiac Disorders: Atrial Fibrillation, Coronary Artery Disease, High Cholesterol, Hypertension, Rheumatic Fever Neurological Hx Neurological Disorders: Yes (LYME DISEASE, NEUROPATHY OF TOES ) Neurological Disorders: Neuropathy Reproductive System Hx Reproductive Disorders: No Sexually Transmitted Disease: No HIV/AIDS: No Genitourinary Hx Genitourinary Disorders: Yes (SEES DR HERRERA FOR PROSTATE) Genitourinary Disorders: Prostate Problems, Kidney Stones Gastrointestinal Hx Gastrointestinal Disorders: Yes Gastrointestinal Disorders: Gastroesophageal Reflux, Chronic Constipation Musculoskeletal Hx Musculoskeletal Disorders: Yes Musculoskeletal Disorders: Arthritis, Chronic Back Pain, Spasms Endocrine Hx Endocrine Disorders: Yes Endocrine Disorders: Diabetes, Non-Insulin dep HEENT HX ENT Disorders: Yes (GLASSES, HEARING AIDS, PARTIAL PLATE) Loss of Vision: Bilateral Hearing Impairment: Bilateral Hearing Aide Cancer Hx Cancer: Yes Cancer: Prostate, Skin Psychosocial Hx Psychiatric Problems: No Integumentary HX Skin/Integumentary Disorder: No Blood Transfusions Hx Blood Disorders: No Adverse Reaction to a Blood Tr: No Family Medical History Family Medial History: Cardiovascular disease 19 FATHER, Age:93 Diabetes mellitus 19 FATHER, Age:93 FH: bladder cancer 19 FATHER, Age:93 FH: congestive heart failure 19 MOTHER, FH: leukemia PATERNAL GRANDMOTHER, FH: mental illness G8 SISTER Heart valve abnormality 19 MOTHER, Hypertension 19 FATHER, Age:93 G8 SISTER Kidney disease 19 FATHER, Age:93 Prostate cancer 19 FATHER, Age:93 Physical Exam Vital Signs Vital Sign - Last 12Hours 01/12/17 17:28 Temp 98.2 Pulse 87 Resp 18 B/P (MAP) 144/81 Pulse Ox 98 O2 Delivery Room Air Capillary Refill : Less Than 3 Seconds General Appearance: Moderate Distress HEENT: PERRL/EOMI, Normal ENT Inspection Neck: Normal Inspection Cardiovascular: Regular Rate, Rhythm, No Edema, No Murmur Respiratory: Lungs Clear, Normal Breath Sounds, No Accessory Muscle Use, No Respiratory Distress Gastrointestinal: Non Tender, Soft Back: Other (Tenderness over the lower lumbar spine and left paraspinous muscles) Extremity: Normal Inspection, No Pedal Edema Neurologic/Psychiatric: Alert, Oriented x3, No Motor/Sensory Deficits, Normal Mood/Affect, magnetic resonance imaging director II-XII Norm as Tested Skin: Normal Color, Warm/Dry Progress/Results/Core Measures Results/Orders My Orders Orders - SABAS WOODARD MD Orphenadrine Injection (Norflex Injectio (01/12/17 17:45) Hydrocodone/Apap 5/325 Tablet (Lortab 5 (01/12/17 17:45) Prednisone Tablet (Deltasone Tablet) (01/12/17 17:45) Vital Signs/I&O Vital Sign - Last 12Hours 01/12/17 01/12/17 01/12/17 01/12/17 17:28 17:54 17:54 18:24 Temp 98.2 98.2 98.2 98.2 Pulse 87 84 Resp 18 16 B/P (MAP) 144/81 Pulse Ox 98 99 O2 Delivery Room Air Room Air Blood Pressure Mean: 102 Progress Note : Progress Note Patient was given a Norflex injection along with hydrocodone and oral prednisone. Departure Impression Impression: Primary Impression: Lower back pain Qualified Codes: M54.5 - Low back pain; G89.29 - Other chronic pain Additional Impression: Muscle spasm Disposition: 01 HOME, SELF-CARE Condition: Improved Departure-Patient Inst. Decision time for Depature: 17:39 Referrals: NIGHAT HASSAN DO (PCP/Family) Primary Care Physician Add. Discharge Instructions: You may continue taking ibuprofen up to 800 mg every 8 hours as needed for primary pain control. Do not double up on multiple NSAIDs such as ibuprofen and Aleve together. For pain not controlled by ibuprofen, add hydrocodone as prescribed. Cyclobenzaprine (Flexeril) is being prescribed for spasms. Complete the prednisone as prescribed. Take your prednisone early in the day to avoid sleep disturbance. Take your medications with food or milk to avoid stomach irritation. Follow-up with Dr. Hassan next week. If symptoms are not improving, MRI may be necessary to further evaluate your lumbar spine. Wear supportive shoes with a low heel and plenty of condition. Avoid placing objects such as a wallet or cell phone in your back pocket. Return to the emergency room if symptoms worsen, especially if you develop loss of control of your legs, bowels, or bladder. Do not drive or operate machinery while under the influence of hydrocodone or cyclobenzaprine. All discharge instructions reviewed with patient and/or family. Voiced understanding. Scripts Prednisone (Prednisone) 20 Mg Tab 20 MG PO DAILY, #4 TAB Prov: SABAS WOODARD MD 01/12/17 Cyclobenzaprine HCl (Cyclobenzaprine HCl) 10 Mg Tablet 10 MG PO TID Y for SPASMS, #20 TAB Prov: SABAS WOODARD MD 01/12/17 Hydrocodone/Acetaminophen (Hydrocodon -Acetaminophen 5-325) 1 Each Tablet 1 EACH PO Q4H Y for PAIN, #20 TAB Prov: SABAS WOODARD MD 01/12/17 SABAS WOODARD MD Jan 12, 2017 17:43
[2017-01-12] MEDS ORDERED: PRD20T PO (17:44)
[2017-01-12] MEDS ORDERED: CYCL10TA9 PO (17:44)
[2017-01-12] MEDS ORDERED: HYDR-3812 PO (17:44)
[2017-01-12] MEDS ORDERED: predniSONE 20 MG TAB PO ONE (17:45)
[2017-01-12] MEDS ORDERED: HYDROcodone/APAP 5 MG/325 MG (LORTAB) TAB PO ONE (17:45)
[2017-01-12] MEDS ORDERED: ORPHENADRINE 60 MG/2 ML (NORFLEX) AMP IM ONE (17:45)
[2017-01-12 18:24] VITALS: BP 142/77
--- OUTSIDE RECORDS SUMMARY | 2017-01-13 18:45 | XMS REPORT | Continuity of Care Document ---
Author Author [facility] Organization [facility] Address Unknown Phone Unavailable Allergies Active Description Code Type Severity Reaction Onset Reported/Identified Relationship to Patient Clinical Status Yes No Known Drug Allergies [id number] Drug Allergy Unknown N/ A 05/08/2015 Medications [...] CCDS Ot I25.10 ATHSCL HEART DISEASE OF [place] CORONARY 05/10/2015 CHANDRIKA BIRD FACC, ALI FACP CCDS Ot R07.89 OTHER CHEST PAIN 05/10/2015 CHANDRIKA BIRD FACC, ALI FACP CCDS Ot R73.09 OTHER ABNORMAL GLUCOSE 05/10/2015 CHANDRIKA BIRD FACC, ALI FACP CCDS Ot R94.39 ABNORMAL RESULT OF OTHER CARDIOVASCULAR 05/10/2015 CHANDRIKA HUTCHINSC, ALI FACP CCDS Ot Z68.33 BODY MASS INDEX (BMI) 33.0-33.9 , ADULT 05/10/2015 CHANDRIKA HUTCHINSC, ALI FACP CCDS Ot Z79.899 OTHER MERCHANDISE FOR RESALE PURCHASING AGENT (CURRENT) DRUG THERAPY 05/11/2015 Ot 780.4 05/11/2015 [...] STEPHANY HUTCHINSP CCDS Ot I48.91 06/12/2015 CHANDRIKA IBRD FACC, STEPHANY HUTCHINSP CCDS Ot R07.89 06/13/2015 [...] DO, Ot I25.10 ATHSCL HEART DISEASE OF [place] CORONARY 06/13/2015 NIGHAT PENDLETON DO, Ot I48.0 PAROXYSMAL ATRIAL FIBRILLATION 06/13/2015 NIGHAT PENDLETON DO, Ot K21.9 GASTRO-ESOPHAGEAL REFLUX DISEASE WITHOUT 06/13/2015 NIGHAT PENDLETON DO, Ot Z68.34 BODY MASS INDEX (BMI) 34.0-34.9, ADULT 06/13/2015 NIGHAT PENDLETON DO, Ot Z79.01 CARE HOME (CURRENT) USE OF ANTICOAGULANT 06/13/2015 NIGHAT PENDLETON DO, Ot Z85.46 PERSONAL HISTORY OF MALIGNANT NEOPLASM O 06/20/2015 CHANDRIKA BIRD FACC, STEPHANY HUTCHINSP CCDS Ot E66.9 06/20/2015 CHANDRIKA BIRD FACC, STEPHANY HUTCHINSP CCDS Ot E78.5 06/20/2015 CHANDRIKA BIRD FACC, STEPHANY HUTCHINSP CCDS Ot G47.30 06/20/2015 CHANDRIKA BIRD FACC, STEPHANY HUTCHINSP CCDS Ot I48.91 06/20/2015 CHANDIRKA BIRD FACC, STEPHANY HUTCHINSP CCDS Ot R07.89 [...] CCDS Ot R07.89 08/28/2015 AV KEEN L PANTRY WORKER Ot I10 08/28/2015 JOHN KEENHER L PANTRY WORKER Ot I48.0 08/28/2015 OFEMA AV L PANTRY WORKER Ot R11.0 08/28/2015 BAIMA, AV L PANTRY WORKER Ot R53.83 08/31/2015 BAIMA AV L PANTRY WORKER Ot I10 08/31/2015 BAIMA, AV L PANTRY WORKER Ot I48.0 08/31/2015 BAIMA, AV L PANTRY WORKER Ot R11.0 08/31/2015 BAIMA, AV L PANTRY WORKER Ot R53.83 10/26/2015 CAYETANO CAMACHO DO Ot [...] PAY 11/20/2015 KENNY DRAPER APRN Ot Z79.01 MERCHANDISE FOR RESALE PURCHASING AGENT (CURRENT) USE OF ANTICOAGULANT 11/20/2015 KENNY DRAPER APRN Ot Z79.82 CARE HOME (CURRENT) USE OF ASPIRIN 11/20/2015 Ot 780.4 [...] CCDS Ot E66.9 OBESITY, UNSPECIFIED 11/20/2015 CHANDRIKA BIDR FACC, ALI FACP CCDS Ot E78.5 HYPERLIPIDEMIA, UNSPECIFIED 11/20/2015 CHANDRIKA BIRD FACC, ALI FACP CCDS Ot G47.30 SLEEP APNEA, UNSPECIFIED 11/20/2015 CHANDRIKA BIRD FACC, ALI FACP CCDS Ot I48.91 UNSPECIFIED ATRIAL FIBRILLATION 11/20/2015 CHANDRIKA BIRD FACC, ALI FACP CCDS Ot R07.89 OTHER CHEST PAIN 11/20/2015 AV KEEN PANTRY WORKER Ot I10 ESSENTIAL (PRIMARY) HYPERTENSION 11/20/2015 AV KEEN PANTRY WORKER Ot I48.0 PAROXYSMAL ATRIAL FIBRILLATION 11/20/2015 AV KEEN PANTRY WORKER Ot R11.0 NAUSEA 11/20/2015 AV KEEN PANTRY WORKER Ot R53.83 OTHER FATIGUE 11/20/2015 CAYETANO CAMACHO [...] PAY 11/21/2015 KENNY DRAPER APRN Ot Z79.01 CARE HOME (CURRENT) USE OF ANTICOAGULANT 11/21/2015 KENNY DRAPER APRN Ot Z79.82 CARE HOME (CURRENT) USE OF ASPIRIN 11/22/2015 CAYETANO CAMACHO [...] I10 ESSENTIAL (PRIMARY) HYPERTENSION 11/23/2015 OFEAV JOHNSON PANTRY WORKER Ot I48.0 PAROXYSMAL ATRIAL FIBRILLATION 11/23/2015 OFEAV JOHNSON PANTRY WORKER Ot R11.0 NAUSEA 11/23/2015 OFEAV JOHNSON PANTRY WORKER Ot R53.83 OTHER FATIGUE 11/23/2015 DOUGCAYETANO EGAN [...] R07.89 OTHER CHEST PAIN 12/14/2015 OFEAV JOHNSON PANTRY WORKER Ot I10 ESSENTIAL (PRIMARY) HYPERTENSION 12/14/2015 OFEAV JOHNSON PANTRY WORKER Ot I48.0 PAROXYSMAL ATRIAL FIBRILLATION 12/14/2015 OFEAV JOHNSON PANTRY WORKER Ot R11.0 NAUSEA 12/14/2015 OFEAV JOHNSON PANTRY WORKER Ot R53.83 OTHER FATIGUE 12/14/2015 CAYETANO CAMACHO [...] R07.89 OTHER CHEST PAIN 08/06/2016 AV KEEN PANTRY WORKER Ot I10 ESSENTIAL (PRIMARY) HYPERTENSION 08/06/2016 AV KEEN PANTRY WORKER Ot I48.0 PAROXYSMAL ATRIAL FIBRILLATION 08/06/2016 AV KEEN PANTRY WORKER Ot R11.0 NAUSEA 08/06/2016 AV KEEN PANTRY WORKER Ot R53.83 OTHER FATIGUE 08/06/2016 CAYETANO CAMACHO [...] 726.90 ENTHESOPATHY, SITE NOS 08/14/2016 REMINGTON DPM, MARECL Q Ot 733.99 BONE CARTILAGE DIS NEC [...] Ot E78.5 HYPERLIPIDEMIA, UNSPECIFIED 08/14/2016 CHANDRIKA BIRD [facility], ALI FACP CCDS Ot G47.30 SLEEP APNEA, UNSPECIFIED 08/14/2016 CHANDRIKA HUTCHINS, ALI FACP CCDS Ot I48.91 UNSPECIFIED ATRIAL FIBRILLATION 08/14/2016 CHANDRIKA HUTCHINS, ALI FACP CCDS Ot R07.89 OTHER CHEST PAIN 08/14/2016 AV KEEN PANTRY WORKER Ot I10 ESSENTIAL (PRIMARY) HYPERTENSION 08/14/2016 AV KEEN PANTRY WORKER Ot I48.0 PAROXYSMAL ATRIAL FIBRILLATION 08/14/2016 AV KEEN PANTRY WORKER Ot R11.0 NAUSEA 08/14/2016 AV KEEN PANTRY WORKER Ot R53.83 OTHER FATIGUE 08/14/2016 CAYETANO CAMACHO DO Ot G47.33 OBSTRUCTIVE SLEEP APNEA (ADULT) (PEDIATR 08/14/2016 CAYETANO CAMACHO DO Ot I48.0 PAROXYSMAL ATRIAL FIBRILLATION 08/14/2016 CAEYTANO CAMACHO DO Ot R06.02 SHORTNESS OF BREATH [...] MD Ot I25.10 ATHSCL HEART DISEASE OF [place] CORONARY 10/15/2016 CHACE HOLLAND MD Ot I48.0 PAROXYSMAL ATRIAL FIBRILLATION 10/15/2016 CHACE HOLLAND MD Ot Z79.01 MERCHANDISE FOR RESALE PURCHASING AGENT (CURRENT) USE OF ANTICOAGULANT 10/15/2016 CHACE HOLLAND MD Ot Z79.84 MERCHANDISE FOR RESALE PURCHASING AGENT (CURRENT) USE OF ORAL HYPOGLYC 10/15/2016 CHACE HOLLAND MD Ot Z79.899 OTHER MERCHANDISE FOR RESALE PURCHASING AGENT (CURRENT) DRUG THERAPY 10/16/2016 CHACE HOLLAND MD Ot E11.9 TYPE 2 DIABETES MELLITUS WITHOUT COMPLIC 10/16/2016 CHACE HOLLAND MD Ot I10 ESSENTIAL (PRIMARY) HYPERTENSION 10/16/2016 CHACE HOLLAND MD Ot I25.10 ATHSCL HEART DISEASE OF [place] CORONARY 10/16/2016 CHACE HOLLAND MD Ot I48.0 PAROXYSMAL ATRIAL FIBRILLATION 10/16/2016 CHACE HOLLAND MD Ot Z79.01 CARE HOME (CURRENT) USE OF ANTICOAGULANT 10/16/2016 CHACE HOLLAND MD Ot Z79.84 CARE HOME (CURRENT) USE OF ORAL HYPOGLYC 10/16/2016 CHACE HOLLAND MD Ot Z79.899 OTHER CARE HOME (CURRENT) DRUG THERAPY 10/18/2016 CHANDRIKA BIRD FACC, [...] CCDS Ot I25.10 ATHSCL HEART DISEASE OF [place] CORONARY 10/18/2016 CHANDRIKA BIRD FACC, ALI FACP CCDS Ot I48.91 UNSPECIFIED ATRIAL FIBRILLATION 10/18/2016 CHANDRIKA BIRD FACC, ALI FACP CCDS Ot K21.9 GASTRO-ESOPHAGEAL REFLUX DISEASE WITHOUT 10/18/2016 CHANDRIKA MD FACC, ALI FACP CCDS Ot Z79.84 MERCHANDISE FOR RESALE PURCHASING AGENT (CURRENT) USE OF ORAL HYPOGLYC Procedures Results [...] Status Pt. Type Provider Facility Loc./Unit Complaint [id number] 10/17/2016 17:20:00 2016 10:15:00 DIS Inpatient CHANDRIKA BIRD FACAga, ALI FACP CCDS [facility] ICU AFIB W/ RVR, CHEST PAIN [id number] 10/15/2016 11:40:00 2016 15:33:00 DIS Emergency CHACE HOLLAND MD [facility] ER IRR HEART RATE [id number] 11/20/2015 17:11:00 2015 17:57:00 DIS Emergency KENNY DRAPER MAIL OFFICER [facility] ER HEAD INJ [id number] 06/30/2015 21:05:00 2014 07:07:00 DIS Outpatient NIGHAT PENDLETON DO [facility] SLEEP SNORING,,DAYTIME SLEEPINESS,CPAP FAILURE [id number] 06/11/2015 17:13:00 2014 11:35:00 DIS Inpatient NIGHAT PENDLETON DO [facility] ICU AFIB WITH RVR [id number] 05/08/2015 16:29:00 2014 09:53:00 DIS Outpatient CHANDRIKA BIRD FACC, STEPHANY FACP CCDS [facility] CATH CHEST PAIN [id number] 05/05/2015 07:38:00 2014 23:59:59 CLS Outpatient CHANDRIKA BIRD FACC, ALI FACP CCDS [facility] CARD PAF,BRANDI,OBESITY,HLP,CHEST DISCOMFORT [id number] 05/04/2015 07:43:00 2014 23:59:59 CLS Outpatient CHANDRIKA BIRD FACC, ALI FACP CCDS [facility] CARD PAF,BRANDI,OBESITY,HLP,CHEST DISCOMFORT [id number] 04/16/2015 18:53:00 2014 20:48:00 DIS Emergency YAMILET BIRD, SABAS [place] [facility] ER CHEST PAIN [id number] 04/06/2015 08:32:00 2014 14:05:00 DIS Outpatient REMINGTON DPM, MARCEL Q [facility] SDC CAPSULITIS, HYPERTROPHIC RIGHT SECOND METATARSAL [id number] 03/30/2015 13:09:00 2014 23:59:59 CLS Outpatient REMINGTON ISIS MARCEL Antonio [facility] PREOP CAPSULITIS, HYPERTROPHIC RIGHT SECOND METATARSAL [id number] 11/12/2013 19:48:00 2013 06:50:00 DIS Outpatient FAUSTINA ALMONTEP [facility] SLEEP BRANDI,UNSPECIFIED SLEEP DISTURBANCE [id number] 12/02/2012 20:14:00 2012 06:30:00 DIS Outpatient NIGHAT PENDLETON DO [facility] SLEEP SNORING,HYPERTENSION, EXCESSIVE DAYTIME SLEEPINESS [id number] 08/19/2016 12:15:00 ACT Outpatient NIGHAT PENDLETON DO [facility] CARD R10.13 [id number] 08/06/2016 09:23:00 ACT Outpatient NIGHAT PENDLETON DO [facility] RAD R10.13 [id number] 10/25/2015 09:00:00 ACT Outpatient CAYETANO CAMACHO DO [facility] RT SOA, DYSPNEA, [id number] 07/31/2015 11:32:00 ACT Outpatient AV KEEN [facility] CARD AFIB, HTN [id number] 09/15/2012 10:37:00 Document Registration [id number] 06/24/2012 08:17:00 Document Registration [id number] 06/17/2012 07:25:00 Document Registration [id number] 05/15/2012 10:45:00 Document Registration [id number] 09/13/2011 06:07:00 Document Registration [id number] 12/14/2010 12:57:00 Document Registration [id number] 11/17/2010 11:02:00 Document Registration
== END 2017-01-12 18:24 | disposition home or self-care (01) ==
LOC: EDUNIT# 17:15 → ER 17:16
DX: M62.830 Muscle spasm of back (principal); E11.9 Type 2 diabetes mellitus without complications; G89.29 Other chronic pain; I25.10 Atherosclerotic heart disease of native coronary artery without angina pectoris; E78.00 Pure hypercholesterolemia, unspecified; I10 Essential (primary) hypertension; Z79.84 Long term (current) use of oral hypoglycemic drugs
CPT/HCPCS: 96372; 99281

== ENCOUNTER → 2017-05-22 | Outpatient (CLI) | payer MEDICARE ==
[~2017-05-22] MED LIST changes: +CATHETER FLUSH 10 ML SYR IV PRN; +COCO1000 PO; +CYCL10TA9 PO; +DILT180C54 PO; +DOXY25TA50 PO; +GABA300C PO; +HYDR-3812 PO; +LSNP10T PO; +PRD20T PO; +[UNRECOGNIZED DRUG - OTHER] PO
[2017-05-22 09:02] VITALS: BP 158/83
--- NOTE | 2017-05-24 11:39 | STRESS TEST ---
DATE OF SERVICE: 05/22/2017 RESTING AND POST EXERCISE TECHNETIUM-99M TETROFOSMIN SPECT CT IMAGING ORDERING PHYSICIAN: Dr. Ortiz. PRIMARY PHYSICIAN: Dr. Hassan. CLINICAL DIAGNOSES: Coronary artery disease, paroxysmal atrial fibrillation. DESCRIPTION: Baseline images were carried out after injection of 10.93 mCi of technetium-99m Tetrofosmin. This was followed by exercise on a treadmill. Hector protocol was employed. After the patient had attained 85% of maximum predicted heart, 30.9 mCi of technetium-99m Tetrofosmin were injected and the exercise was continued for another minute. The test was stopped on account of fatigue. At peak exercise, there is considerable baseline artifact, but there does not appear to be significant ST segment deviation consistent with ischemia. The patient attained 90% of maximum predicted heart rate. He exercised for a total of 8 minutes and 32 seconds in the Hector protocol. He attained 10.3 METS of workload. Review of images at rest and following stress does not indicate any significant perfusion defects consistent with significant myocardial ischemia or infarction. Gated images show normal global left ventricular systolic function with normal regional wall motion. Left ventricular ejection fraction is calculated to be 77%. Left ventricular end diastolic volume is 54 mL. TID is absent (0.98). CONCLUSIONS: 1. No evidence of any significant myocardial ischemia or infarction on this study. 2. Normal regional wall motion. 3. Normal global left ventricular systolic function with a calculated ejection fraction of 77%. 4. Normal left ventricular cavity size. Job ID: [id number] DocumentID: [id number] Dictated Date: 05/23/2017 15:29:53 Laboratory Technical Specialist Date: 05/23/2017 19:56:27 Dictated By: STEPHANY ORTIZ MD, MA, FACP, FACC,
== END ==
LOC: CARD 07:14
PROVIDERS: ATTEND Internal Medicine Cardiovascular Disease
DX: I25.10 Atherosclerotic heart disease of native coronary artery without angina pectoris (principal); I48.0 Paroxysmal atrial fibrillation; G47.33 Obstructive sleep apnea (adult) (pediatric)
CPT/HCPCS: 78452; 93017

== ENCOUNTER 2017-06-01 17:29 | Emergency (ER) | payer MEDICARE ==
[~2017-06-01] VITALS: Ht 177.8 cm; Wt 81.6 kg
[~2017-06-01 17:29] MED LIST changes: -CATHETER FLUSH 10 ML SYR IV PRN
[2017-06-01 17:48] LABS: BASOPHILS % (AUTO) 1 % (0-10); EOSINOPHILS # (AUTO) 0.2 10^3/uL (0.0-0.3); EOSINOPHILS % (AUTO) 3 % (0-10); LYMPHOCYTES # (AUTO) 2.2 X 10^3 (1.0-4.0); LYMPHOCYTES % (AUTO) 42 % (12-44); MEAN CORPUSCULAR HEMOGLOBIN 30 PG (25-34); MEAN CORPUSCULAR HGB CONC 34 G/DL (32-36); MEAN CORPUSCULAR VOLUME 88 FL (80-99); MEAN PLATELET VOLUME 11.5 FL (7.4-10.4); MONOCYTES # (AUTO) 0.5 X 10^3 (0.0-1.0); MONOCYTES % (AUTO) 10 % (0-12); NEUTROPHILS # (AUTO) 2.4 X 10^3 (1.8-7.8); NEUTROPHILS % (AUTO) 45 % (42-75); PLATELET COUNT 180 10^3/uL (130-400); RED BLOOD COUNT 5.77 10^6/uL (4.35-5.85); RED CELL DISTRIBUTION WIDTH 12.7 % (10.0-14.5); WHITE BLOOD COUNT 5.3 10^3/uL (4.3-11.0)
[2017-06-01 17:55] LABS: INR 0.9 (0.8-1.4); PROTHROMBIN TIME PATIENT 12.1 SEC (12.2-14.7)
[2017-06-01 18:06] LABS: ALANINE AMINOTRANSFERASE 21 U/L (0-55); ALBUMIN 4.2 GM/DL (3.2-4.5); ANION GAP 9 MMOL/L (5-14); ASPARTATE AMINO TRANSFERASE 17 U/L (5-34); BILIRUBIN,TOTAL 0.4 MG/DL (0.1-1.0); BLOOD UREA NITROGEN 15 MG/DL (7-18); BUN/CREATININE RATIO 18; CALCIUM 9.3 MG/DL (8.5-10.1); CARBON DIOXIDE 27 MMOL/L (21-32); CHLORIDE 101 MMOL/L (98-107); CREATININE SERUM 0.85 MG/DL (0.60-1.30); GFR ESTIMATED > 60; GLUCOSE 157 MG/DL (70-105); POTASSIUM 3.8 MMOL/L (3.6-5.0); SODIUM 137 MMOL/L (135-145); TOTAL PROTEIN 7.4 GM/DL (6.4-8.2)
[2017-06-01 18:13] LABS: MYOGLOBIN SERUM 31.6 NG/ML (10.0-92.0)
--- NOTE | 2017-06-01 18:13 | ED Chest Pain ---
General Chief Complaint: Chest Pain Stated Complaint: AFIB Source: patient, old records Exam Limitations: no limitations History of Present Illness Time seen by provider: 17:43 Initial Comments This 72-year-old gentleman presents to the emergency room with complaints of chest heaviness and atrial fibrillation. He has mild tachycardia. Symptoms were noticed this morning. Patient was initially seen at 17:43 by Reagan Schofield and care was assumed by me at 18:05. Patient was initially in atrial fibrillation on arrival. He was in sinus rhythm by the time of my assessment. Patient reports associated chest heaviness and lightheadedness upon standing. Patient has a history of paroxysmal atrial fibrillation. He was admitted to the hospital May 18 for an episode. He has been doing relatively well since then. He took his Cardizem 180 mg this morning. He takes Xarelto each evening. He had a stress test performed by Dr. Ortiz last week. Allergies and Home Medications Allergies Coded Allergies: No Known Drug Allergies (Unverified , 05/08/15) Home Medications Cinnamon Bark 500 Mg Capsule, 500 MG PO BID, (Reported) Coconut Oil 1,000 Mg Capsule, 1,000 MG PO DAILY, (Reported) Cyclobenzaprine HCl 10 Mg Tablet, 10 MG PO TID PRN for SPASMS, #20 Prescribed by: SABAS IVERSON on 01/12/171743 Diltiazem HCl 180 Mg Cap.er.24h, 360 MG PO DAILY, #30 Ref 5 Prescribed by: AV KEEN on 10/18/16 0847 Diltiazem HCl 180 Mg Cap.er.24h, 180 MG PO DAILY, (Reported) Docusate Sodium 100 Mg Capsule, 100 MG PO BID, (Reported) Doxylamine Succinate 25 Mg Tablet, 25 MG PO, (Reported) Esomeprazole Magnesium 22.3 Mg Capsule.dr, 22.3 MG PO DAILY, (Reported) Fluticasone Propionate 16 Gm Maynard, 2 SPRAYS NA DAILY PRN for ALLERGIES, ( Reported) Gabapentin 300 Mg Capsule, 900 MG PO HS, (Reported) Glucosa Torres 2Kcl/Chondroitin Torres 1 Each Capsule, 1 CAP PO BID, (Reported) Hydrocodone/Acetaminophen 1 Each Tablet, 1 EACH PO Q4H PRN for PAIN, #20 Prescribed by: SABAS IVERSON on 01/12/171743 Lisinopril 10 Mg Tab, 10 MG PO, (Reported) Lovastatin 40 Mg Tablet, 80 MG PO DAILY, (Reported) TAKES 2 (40MG) TABLETS Metformin HCl 500 Mg Tablet, 1,000 MG PO DAILY, (Reported) TAKES 2 (500MG) TABLETS Multivitamin 1 Each Tablet, 1 TAB PO DAILY, (Reported) Prednisone 20 Mg Tab, 20 MG PO DAILY, #4 Prescribed by: SABAS IVERSON on 01/12/17 1744 Rivaroxaban 20 Mg Tablet, 20 MG PO DAILY@1700, #30 Ref 3 Prescribed by: AV KEEN on 10/18/16 0847 Rivaroxaban 20 Mg Tablet, 20 MG PO DAILY, (Reported) [AloeCure] , PO DAILY, (Reported) Review of Systems Constitutional: no symptoms reported EENTM: No Symptoms Reported Respiratory: No Symptoms Reported Cardiovascular: See HPI Gastrointestinal: No Symptoms Reported Genitourinary: No Symptoms Reported Musculoskeletal: no symptoms reported Skin: no symptoms reported Psychiatric/Neurological: No Symptoms Reported Endocrine: No Symptoms Reported Past Hqwldcp-Kitswf-Njqkej Hx Patient Social History 2nd Hand Smoke Exposure: No Recent Hopitalizations: No Immunizations Up To Date Tetanus Booster (TDap): More than 5yrs Date of Pneumonia Vaccine: Apr 28, 2016 Date of Influenza Vaccine: Apr 25, 2017 Seasonal Allergies Seasonal Allergies: No Surgeries History of Surgeries: Yes (STONE RETRIEVAL, HAMMER TOE REPAIR, HEART CATH) Surgeries: Orthopedic Respiratory History of Respiratory Disorde: Yes (CPAP WITH O2) Respiratory Disorders: Sleep Apnea Currently Using CPAP: Yes Currently Using BIPAP: No Cardiovascular History of Cardiac Disorders: Yes Cardiac Disorders: Atrial Fibrillation, Coronary Artery Disease, High Cholesterol, Hypertension, Rheumatic Fever Neurological History of Neurological Disord: Yes (LYME DISEASE, NEUROPATHY OF TOES ) Neurological Disorders: Neuropathy Reproductive System Hx Reproductive Disorders: No Sexually Transmitted Disease: No HIV/AIDS: No Genitourinary History of Genitourinary Disor: Yes Genitourinary Disorders: Prostate Problems, Kidney Stones Gastrointestinal History of Gastrointestinal Di: Yes Gastrointestinal Disorders: Gastroesophageal Reflux, Chronic Constipation Musculoskeletal History of Musculoskeletal Dis: Yes Musculoskeletal Disorders: Arthritis, Chronic Back Pain, Spasms Endocrine History of Endocrine Disorders: Yes Endocrine Disorders: Diabetes, 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 Hearing Impairment: Bilateral Hearing Aide Cancer History of Cancer: Yes Cancer: Prostate, Skin Psychosocial History of Psychiatric Problem: No Integumentary History of Skin or Integumenta: No Blood Transfusions History of Blood Disorders: No Adverse Reaction to a Blood Tr: No Family Medical History Family Medial History: Cardiovascular disease 19 FATHER, Age:93 Diabetes mellitus 19 FATHER, Age:93 FH: bladder cancer 19 FATHER, Age:93 FH: congestive heart failure 19 MOTHER, FH: leukemia PATERNAL GRANDMOTHER, FH: mental illness G8 SISTER Heart valve abnormality 19 MOTHER, Hypertension 19 FATHER, Age:93 G8 SISTER Kidney disease 19 FATHER, Age:93 Prostate cancer 19 FATHER, Age:93 Physical Exam Vital Signs Vital Sign - Last 12Hours 06/01/17 17:29 Pulse Ox 100 O2 Delivery Room Air Capillary Refill : General Appearance: No Apparent Distress, WD/WN HEENT: PERRL/EOMI, Normal ENT Inspection Neck: Normal Inspection Respiratory: Lungs Clear, Normal Breath Sounds, No Accessory Muscle Use, No Respiratory Distress Cardiovascular: Regular Rate, Rhythm, No Edema, No Murmur, Normal Peripheral Pulses Gastrointestinal: Normal Bowel Sounds, Non Tender, Soft Extremity: Normal Inspection, No Pedal Edema Neurologic/Psychiatric: Alert, Oriented x3, No Motor/Sensory Deficits, Normal Mood/Affect, bridge instructor II-XII Norm as Tested Skin: Normal Color, Warm/Dry Progress/Results/Core Measures Results/Orders Lab Results Laboratory Tests Test 06/01/17 17:38 Range/Units White Blood Count 5.3 4.3-11.0 10^3/uL Red Blood Count 5.77 4.35-5.85 10^6/uL Hemoglobin 17.4 13.3-17.7 G/DL Hematocrit 51 40-54 % Mean Corpuscular Volume 88 80-99 FL Mean Corpuscular Hemoglobin 30 25-34 PG Mean Corpuscular Hemoglobin Concent 34 32-36 G/DL Red Cell Distribution Width 12.7 10.0-14.5 % Platelet Count 180 130-400 10^3/uL Mean Platelet Volume 11.5 H 7.4-10.4 FL Neutrophils (%) (Auto) 45 42-75 % Lymphocytes (%) (Auto) 42 12-44 % Monocytes (%) (Auto) 10 0-12 % Eosinophils (%) (Auto) 3 0-10 % Basophils (%) (Auto) 1 0-10 % Neutrophils # (Auto) 2.4 1.8-7.8 X 10^3 Lymphocytes # (Auto) 2.2 1.0-4.0 X 10^3 Monocytes # (Auto) 0.5 0.0-1.0 X 10^3 Eosinophils # (Auto) 0.2 0.0-0.3 10^3/uL Basophils # (Auto) 0.0 0.0-0.1 10^3/uL Prothrombin Time 12.1 L 12.2-14.7 SEC INR Comment 0.9 0.8-1.4 Activated Partial Thromboplast Time 29 24-35 SEC Sodium Level 137 135-145 MMOL/L Potassium Level 3.8 3.6-5.0 MMOL/L Chloride Level 101 98-107 MMOL/L Carbon Dioxide Level 27 21-32 MMOL/L Anion Gap 9 5-14 MMOL/L Blood Urea Nitrogen 15 7-18 MG/DL Creatinine 0.85 0.60-1.30 MG/DL Estimat Glomerular Filtration Rate > 60 BUN/Creatinine Ratio 18 Glucose Level 157 H 70-105 MG/DL Calcium Level 9.3 8.5-10.1 MG/DL Magnesium Level 2.0 1.8-2.4 MG/DL Total Bilirubin 0.4 0.1-1.0 MG/DL Aspartate Amino Transf (AST/SGOT) 17 5-34 U/L Alanine Aminotransferase (ALT/SGPT) 21 0-55 U/L Alkaline Phosphatase 83 40-136 U/L Myoglobin 31.6 10.0-92.0 NG/ML Troponin I < 0.30 <0.30 NG/ML B-Type Natriuretic Peptide 208.5 H <100.0 PG/ML Total Protein 7.4 6.4-8.2 GM/DL Albumin 4.2 3.2-4.5 GM/DL My Orders Orders - SABAS WOODARD MD Ns Iv 1000 Ml (Sodium Chloride 0.9%) (06/01/17 18:14) Medications Given in ED Current Medications Medications Dose Ordered Sig/Jamie Route Start Time Stop Time Status Last Admin Dose Admin Sodium Chloride 1,000 ml @ 0 mls/hr Q0M ONCE IV 06/01/17 18:14 06/01/17 18:15 DC 06/01/17 18:56 0 MLS/HR Vital Signs/I&O Vital Sign - Last 12Hours 06/01/17 06/01/17 06/01/17 06/01/17 17:29 17:32 17:32 19:59 Temp 98.2 98.9 Pulse 109 69 Resp 18 16 B/P (MAP) 132/76 Pulse Ox 100 98 100 O2 Delivery Room Air Room Air Room Air Room Air Progress Note #1: Time: 18:10 Progress Note Patient is now in sinus rhythm. He still has some lingering chest heaviness. Labs pending. A liter of IV NS was ordered. Progress Note #2: Time: 19:49 Progress Note Patient's symptoms resolved. He remained in normal sinus rhythm. Case was reviewed with Dr. Pringle who agreed with discharge and close outpatient follow- up. ECG Initial ECG Impression Date: Jun 01, 2017 Initial ECG Impression Time: 17:26 Initial ECG Rate: 109 Initial ECG Rhythm: A Fib/Flutter Comment Atrial fibrillation with mild tachycardia. No acute ST elevation or depression. Diagnostic Imaging Diagonstic Imaging: Xray Plain Films/CT/US/NM/MRI: chest Comments Chest x-ray viewed by me and report reviewed. See report below: NAME: JHOANA ARCHULETA [facility] REC#: [id number] PT STATUS: DEP ER : 1945 PHYSICIAN: CHACE HOLLAND MD ADMIT DATE: 06/01/17/ER Signed Date of Exam: 06/01/17 CHEST 1 VIEW, AP/PA ONLY INDICATION: Atrial fibrillation. TECHNIQUE: Single view chest 6:59 PM. CORRELATION STUDY: 05/18/2017 FINDINGS: Heart size borderline. Vasculature within normal limits. Minimal atelectasis or scarring left costophrenic angle. Lung mckinley otherwise relatively clear. IMPRESSION: 1. Stable heart size and mediastinal configuration. No evidence for overt failure. Minimal chronic atelectasis and scarring left costophrenic angle. Dictated by: Dictated on workstation # [id number] Dict: 06/01/171919 Trans: 06/01/172218 Interpreted by: SANKET SANCHEZ DO Electronically signed by: SANKET SANCHEZ DO 06/01/172218 Departure Impression Impression: Primary Impression: Paroxysmal atrial fibrillation Additional Impression: Chest pressure Disposition: 01 HOME, SELF-CARE Condition: Improved Departure-Patient Inst. Decision time for Depature: 19:45 Referrals: NIGHAT PENDLETON DO (PCP/Family) Primary Care Physician Patient Instructions: Atrial Fibrillation (DC) Add. Discharge Instructions: Contact Dr. Ortiz's office tomorrow morning to arrange follow-up. Return to care if you have persistent high heart rate or developed chest pain again. Continue with your current medications. All discharge instructions reviewed with patient and/or family. Voiced understanding. Copy Copies To 1: STEPHANY ORTIZ MD FACP FACC CCDS SABAS WOODARD MD Jun 01, 2017 18:13
[2017-06-01] MEDS ORDERED: NS IV 1000 ML 1,000 ML IV ONE (18:14)
--- NOTE | 2017-06-01 19:23 | Diagnostic Imaging Report ---
INDICATION: Atrial fibrillation. TECHNIQUE: Single view chest 6:59 PM. CORRELATION STUDY: 05/18/2017 FINDINGS: Heart size borderline. Vasculature within normal limits. Minimal atelectasis or scarring left costophrenic angle. Lung mckinley otherwise relatively clear. IMPRESSION: 1. Stable heart size and mediastinal configuration. No evidence for overt failure. Minimal chronic atelectasis and scarring left costophrenic angle. Dictated by: Dictated on workstation # [id number]
[2017-06-01 19:59] VITALS: BP 123/80
== END 2017-06-01 19:59 | disposition home or self-care (01) ==
LOC: EDUNIT# 17:29 → ER 17:30
DX: I48.0 Paroxysmal atrial fibrillation (principal); R07.89 Other chest pain; I25.10 Atherosclerotic heart disease of native coronary artery without angina pectoris; I10 Essential (primary) hypertension; E78.00 Pure hypercholesterolemia, unspecified; G47.30 Sleep apnea, unspecified; K21.9 Gastro-esophageal reflux disease without esophagitis; E11.40 Type 2 diabetes mellitus with diabetic neuropathy, unspecified; M19.90 Unspecified osteoarthritis, unspecified site; Z80.42 Family history of malignant neoplasm of prostate; Z80.52 Family history of malignant neoplasm of bladder; Z82.49 Family history of ischemic heart disease and other diseases of the circulatory system; Z85.46 Personal history of malignant neoplasm of prostate; Z87.19 Personal history of other diseases of the digestive system; Z79.01 Long term (current) use of anticoagulants; Z85.828 Personal history of other malignant neoplasm of skin; Z87.442 Personal history of urinary calculi; Z79.84 Long term (current) use of oral hypoglycemic drugs
CPT/HCPCS: 36415; 71010; 80053; 83735; 83874; 83880; 84484; 85025; 85610; 85730; 93005; 93041

== ENCOUNTER → 2017-07-29 | Day surgery (SDC) | payer MEDICARE ==
[~2017-07-29] VITALS: Ht 177.8 cm; Wt 99.8 kg
[~2017-07-29] MED LIST changes: +ACHD5005 PO; -AMIO400T4 PO; +AMIO400T5 PO; +CEFDINIR 300 MG (OMNICEF) CAP PO NR; -HYDR-3812 PO; +LIDOCAINE 1% INJ 50 ML (XYLOCAINE) VIAL ONE
--- OUTSIDE RECORDS SUMMARY | 2017-07-29 08:53 | XMS REPORT | Continuity of Care Document ---
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 measurement (mass/volume) 12.5 [...] Automated blood platelet mean volume measurement 11.0 [foz_us] 7.4-10.4 Automated blood neutrophils/100 leukocytes 42 % [...] Serum or plasma sodium measurement (moles/volume) 140 mmol/L 135-145 Serum or plasma potassium measurement (moles/volume) 4.0 mmol/L 3.6-5.0 Serum or plasma chloride measurement (moles/volume) 108 mmol/L 98-107 Carbon dioxide 23 mmol/L 21-32 Serum or plasma anion gap determination (moles/volume) 9 mmol/L 5-14 Serum or plasma urea nitrogen measurement (mass/volume) 12 mg/dL 7-18 Serum or plasma creatinine measurement (mass/volume) 0.79 mg/dL 0.60-1.30 Serum or plasma urea nitrogen/creatinine mass [...] Serum or plasma phosphate measurement (mass/volume) 4.2 mg/dL 2.3-4.7 Magnesium - 10/18/16 03:25 Magnesium 1.8 mg/dL 1.8-2.4 Myoglobin, serum - 10/18/16 03:25 Myoglobin, serum 42.1 ng/mL 10.0-92.0 Lipid 1996 panel - 10/18/16 03:25 Serum or plasma triglyceride measurement (mass/volume) 104 mg/dL <150 Serum or plasma cholesterol measurement (mass/volume) 157 mg/dL < 200 Serum or plasma cholesterol in HDL measurement (mass/volume) 37 mg/ dL 40-60 Cholesterol in LDL [mass/volume] in serum or plasma by direct assay 103 mg/dL 1-129 Serum or plasma cholesterol in VLDL measurement (mass/volume) 21 mg/ dL 5-40 THYROID STIMULATING HORMONE - 10/18/16 03:25 THYROID STIMULATING HORMONE 1.50 u[iU]/mL 0.35-4.94 Complete blood count (CBC) with automated white blood cell (WBC) differential - 05/17/17 23:40 Blood leukocytes automated count (number/volume) 5.2 10*3/uL 4.3-11.0 Blood erythrocytes automated count (number/volume) 4.97 10*6/uL 4.35-5.85 Venous blood hemoglobin measurement (mass/volume) 14.9 g/dL 13.3-17.7 Blood hematocrit (volume fraction) 44 % 40-54 Automated erythrocyte mean corpuscular volume 89 [foz_us] 80-99 Automated erythrocyte mean corpuscular hemoglobin (mass per erythrocyte) 30 pg 25-34 Automated erythrocyte mean corpuscular hemoglobin concentration measurement ( mass/volume) 34 g/dL 32-36 Automated erythrocyte distribution width ratio 13.0 % 10.0-14.5 Automated blood platelet count (count/volume) 165 10*3/uL 130-400 Automated blood platelet mean volume measurement 11.6 [foz_us] 7.4-10.4 Automated blood neutrophils/100 leukocytes 51 % 42-75 Automated blood lymphocytes/100 leukocytes 36 % 12-44 Blood monocytes/100 leukocytes 10 % 0-12 Automated blood eosinophils/100 leukocytes 2 % 0-10 Automated blood basophils/100 leukocytes 1 % 0-10 Blood neutrophils automated count (number/volume) 2.7 10*3 1.8-7.8 Blood lymphocytes automated count (number/volume) 1.9 10*3 1.0-4.0 Blood monocytes automated count (number/volume) 0.5 10*3 0.0-1.0 Automated eosinophil count 0.1 10*3/uL 0.0-0.3 Automated blood basophil count (count/volume) 0.0 10*3/uL 0.0-0.1 PT panel in platelet poor plasma by coagulation assay - 05/17/17 23:40 Prothrombin time (PT) in platelet poor plasma by coagulation assay 18.3 s 12.2-14.7 INR in platelet poor plasma or blood by coagulation assay 1.5 0.8-1.4 Activated partial thromboplastin time (aPTT) in platelet poor plasma bycoagulation assay - 05/17/17 23:40 Activated partial thromboplastin time (aPTT) in platelet poor plasma bycoagulation assay 38 s 24-35 Comprehensive metabolic panel - 05/17/17 23:40 Serum or plasma sodium measurement (moles/volume) 138 mmol/L 135-145 Serum or plasma potassium measurement (moles/volume) 3.9 mmol/L 3.6-5.0 Serum or plasma chloride measurement (moles/volume) 104 mmol/L 98-107 Carbon dioxide 24 mmol/L 21-32 Serum or plasma anion gap determination (moles/volume) 10 mmol/L 5-14 Serum or plasma urea nitrogen measurement (mass/volume) 15 mg/dL 7-18 Serum or plasma creatinine measurement (mass/volume) 0.90 mg/dL 0.60-1.30 Serum or plasma urea nitrogen/creatinine mass ratio 17 NRG Serum or plasma creatinine measurement with calculation of estimated glomerular filtration rate > NRG Serum or plasma glucose measurement (mass/volume) 189 mg/dL 70-105 Serum or plasma calcium measurement (mass/volume) 8.7 mg/dL 8.5-10.1 Serum or plasma total bilirubin measurement (mass/volume) 0.2 mg/dL 0.1-1.0 Serum or plasma alkaline phosphatase measurement (enzymatic activity/volume) 77 U/L 40-136 Serum or plasma aspartate aminotransferase measurement (enzymatic activity/ volume) 22 U/L 5-34 Serum or plasma alanine aminotransferase measurement (enzymatic activity/volume ) 21 U/L 0-55 Serum or plasma protein measurement (mass/volume) 6.7 g/dL 6.4-8.2 Serum or plasma albumin measurement (mass/volume) 3.9 g/dL 3.2-4.5 Magnesium - 05/17/17 23:40 Magnesium 2.1 mg/dL 1.8-2.4 Myoglobin, serum - 05/17/17 23:40 Myoglobin, serum 71.2 ng/mL 10.0-92.0 Serum or plasma troponin i.cardiac measurement (mass/volume) - 05/17/17 23:40 Serum or plasma troponin i.cardiac measurement (mass/volume) < ng/ mL <0.30 Myoglobin, serum - 05/17/17 23:40 Myoglobin, serum 71.2 ng/mL 10.0-92.0 Lipid 1996 panel - 05/18/17 06:00 Serum or plasma triglyceride measurement (mass/volume) 94 mg/dL <150 Serum or plasma cholesterol measurement (mass/volume) 192 mg/dL < 200 Serum or plasma cholesterol in HDL measurement (mass/volume) 39 mg/ dL 40-60 Cholesterol in LDL [mass/volume] in serum or plasma by direct assay 136 mg/dL 1-129 Serum or plasma cholesterol in VLDL measurement (mass/volume) 19 mg/ dL 5-40 Serum or plasma troponin i.cardiac measurement (mass/volume) - 05/18/17 06:00 Serum or plasma troponin i.cardiac measurement (mass/volume) < ng/ mL <0.30 Serum or plasma troponin i.cardiac measurement (mass/volume) - 05/18/17 12:12 Serum or plasma troponin i.cardiac measurement (mass/volume) < ng/ mL <0.30 Complete blood count (CBC) with automated white blood cell (WBC) differential - 06/01/17 17:38 Blood leukocytes automated count (number/volume) 5.3 10*3/uL 4.3-11.0 Blood erythrocytes automated count (number/volume) 5.77 10*6/uL 4.35-5.85 Venous blood hemoglobin measurement (mass/volume) 17.4 g/dL 13.3-17.7 Blood hematocrit (volume fraction) 51 % 40-54 Automated erythrocyte mean corpuscular volume 88 [foz_us] 80-99 Automated erythrocyte mean corpuscular hemoglobin (mass per erythrocyte) 30 pg 25-34 Automated erythrocyte mean corpuscular hemoglobin concentration measurement ( mass/volume) 34 g/dL 32-36 Automated erythrocyte distribution width ratio 12.7 % 10.0-14.5 Automated blood platelet count (count/volume) 180 10*3/uL 130-400 Automated blood platelet mean volume measurement 11.5 [foz_us] 7.4-10.4 Automated blood neutrophils/100 leukocytes 45 % 42-75 Automated blood lymphocytes/100 leukocytes 42 % 12-44 Blood monocytes/100 leukocytes 10 % 0-12 Automated blood eosinophils/100 leukocytes 3 % 0-10 Automated blood basophils/100 leukocytes 1 % 0-10 Blood neutrophils automated count (number/volume) 2.4 10*3 1.8-7.8 Blood lymphocytes automated count (number/volume) 2.2 10*3 1.0-4.0 Blood monocytes automated count (number/volume) 0.5 10*3 0.0-1.0 Automated eosinophil count 0.2 10*3/uL 0.0-0.3 Automated blood basophil count (count/volume) 0.0 10*3/uL 0.0-0.1 PT panel in platelet poor plasma by coagulation assay - 06/01/17 17:38 Prothrombin time (PT) in platelet poor plasma by coagulation assay 12.1 s 12.2-14.7 INR in platelet poor plasma or blood by coagulation assay 0.9 0.8-1.4 Activated partial thromboplastin time (aPTT) in platelet poor plasma bycoagulation assay - 06/01/17 17:38 Activated partial thromboplastin time (aPTT) in platelet poor plasma bycoagulation assay 29 s 24-35 Comprehensive metabolic panel - 06/01/17 17:38 Serum or plasma sodium measurement (moles/volume) 137 mmol/L 135-145 Serum or plasma potassium measurement (moles/volume) 3.8 mmol/L 3.6-5.0 Serum or plasma chloride measurement (moles/volume) 101 mmol/L 98-107 Carbon dioxide 27 mmol/L 21-32 Serum or plasma anion gap determination (moles/volume) 9 mmol/L 5-14 Serum or plasma urea nitrogen measurement (mass/volume) 15 mg/dL 7-18 Serum or plasma creatinine measurement (mass/volume) 0.85 mg/dL 0.60-1.30 Serum or plasma urea nitrogen/creatinine mass ratio 18 NRG Serum or plasma creatinine measurement with calculation of estimated glomerular filtration rate > NRG Serum or plasma glucose measurement (mass/volume) 157 mg/dL 70-105 Serum or plasma calcium measurement (mass/volume) 9.3 mg/dL 8.5-10.1 Serum or plasma total bilirubin measurement (mass/volume) 0.4 mg/dL 0.1-1.0 Serum or plasma alkaline phosphatase measurement (enzymatic activity/volume) 83 U/L 40-136 Serum or plasma aspartate aminotransferase measurement (enzymatic activity/ volume) 17 U/L 5-34 Serum or plasma alanine aminotransferase measurement (enzymatic activity/volume ) 21 U/L 0-55 Serum or plasma protein measurement (mass/volume) 7.4 g/dL 6.4-8.2 Serum or plasma albumin measurement (mass/volume) 4.2 g/dL 3.2-4.5 Magnesium - 06/01/17 17:38 Magnesium 2.0 mg/dL 1.8-2.4 Serum or plasma lithium measurement (moles/volume) - 06/01/17 17:38 BNP level 208.5 pg/mL <100.0 Serum or plasma troponin i.cardiac measurement (mass/volume) - 06/01/17 17:38 Serum or plasma troponin i.cardiac measurement (mass/volume) < ng/ mL <0.30 Myoglobin, serum - 06/01/17 17:38 Myoglobin, serum 31.6 ng/mL 10.0-92.0 Encounters ACCT No. Visit Date/Time Discharge Status Pt. Type Provider Facility Loc./Unit Complaint [id number] 06/01/2017 17:30:00 06/01/2017 19:59:00 DIS Emergency SABAS WOODARD MD [facility] ER AFIB [id number] 05/22/2017 07:14:00 05/22/2017 23:59:59 CLS Outpatient CHANDRIKA BIRD FACC, STEPHANY BALLESTEROS CCDS [facility] CARD CAD I25.10 [id number] 05/18/2017 01:15:00 05/18/2017 10:09:00 DIS Outpatient MARLON SHAH MD [facility] ICU CP R/O ACS [id number] 01/12/2017 17:16:00 01/12/2017 18:24:00 DIS Emergency SABAS WOODARD MD [facility] ER BACK SPASMS [id number] 10/17/2016 17:20:00 10/18/2016 10:15:00 DIS Inpatient STEPHANY COBOS MD, FACC, FACP CCDS [facility] ICU AFIB W/ RVR, CHEST PAIN [id number] 10/15/2016 11:40:00 10/15/2016 15:33:00 DIS Emergency CHACE HOLLAND MD [facility] ER IRR HEART RATE [id number] 08/19/2016 12:15:00 08/19/2016 23:59:59 CLS Outpatient NIGHAT PENDLETON DO [facility] CARD R10.13 [id number] 08/06/2016 09:23:00 08/06/2016 23:59:59 CLS Outpatient NIGHAT PENDLETON DO [facility] RAD R10.13 [id number] 11/20/2015 17:11:00 11/20/2015 17:57:00 DIS Emergency KENNY DRAPER J[employer] SOFTWARE ARCHITECT [facility] ER HEAD INJ [id number] 10/25/2015 09:00:00 10/25/2015 23:59:59 CLS Outpatient CAYETANO CAMACHO DO [facility] RT SOA, DYSPNEA, [id number] 07/31/2015 11:32:00 07/31/2015 23:59:59 CLS Outpatient AV KEEN [facility] CARD AFIB, HTN [id number] 06/30/2015 21:05:00 07/01/2015 07:07:00 DIS Outpatient NIGHAT PENDLETON DO [facility] SLEEP SNORING,,DAYTIME SLEEPINESS,CPAP FAILURE [id number] 06/11/2015 17:13:00 06/13/2015 11:35:00 DIS Inpatient NIGHAT PENDLETON DO [facility] ICU AFIB WITH RVR [id number] 05/08/2015 16:29:00 05/10/2015 09:53:00 DIS Outpatient STEPHANY COBOS MD, FACC, FACP CCDS [facility] CATH CHEST PAIN [id number] 05/05/2015 07:38:00 05/05/2015 23:59:59 CLS Outpatient CHANDRIKA BIRD FACC, STEPHANY FACP CCDS [facility] CARD PAF,BRANDI, OBESITY,HLP,CHEST DISCOMFORT [id number] 05/04/2015 07:43:00 05/04/2015 23:59:59 CLS Outpatient CHANDRIKA BIRD FACC, ALI FACP CCDS [facility] CARD PAF,BRANDI, OBESITY,HLP,CHEST DISCOMFORT [id number] 04/16/2015 18:53:00 04/16/2015 20:48:00 DIS Emergency SABAS WOODARD MD [facility] ER CHEST PAIN [id number] 04/06/2015 08:32:00 04/06/2015 14:05:00 DIS Outpatient REMINGTON DPM, MARCEL Q [facility] SDC CAPSULITIS, HYPERTROPHIC RIGHT SECOND METATARSAL [id number] 03/30/2015 13:09:00 03/30/2015 23:59:59 CLS Outpatient REMINGTON DPM, MARCEL Q [facility] PREOP CAPSULITIS, HYPERTROPHIC RIGHT SECOND METATARSAL [id number] 11/12/2013 19:48:00 11/13/2013 06:50:00 DIS Outpatient FAUSTINA ALMONTE CLINICAL REVIEWER [facility] SLEEP BRANDI,UNSPECIFIED SLEEP DISTURBANCE [id number] 12/02/2012 20:14:00 12/03/2012 06:30:00 DIS Outpatient NIGHAT PENDLETON DO [facility] SLEEP SNORING, HYPERTENSION,EXCESSIVE DAYTIME SLEEPINESS [id number] 09/15/2012 10:37:00 Document Registration [id number] 06/24/2012 08:17:00 Document Registration [id number] 06/17/2012 07:25:00 Document Registration [id number] 05/15/2012 10:45:00 Document Registration [id number] 09/13/2011 06:07:00 Document Registration [id number] 12/14/2010 12:57:00 Document Registration [id number] 11/17/2010 11:02:00 Document Registration
[2017-07-29 09:30] VITALS: BP 140/94
--- NOTE | 2017-07-29 11:08 | Cardiac Procedure Note-CS/ASA ---
Pre-Procedure Note Pre-Op Procedure Note H&P Reviewed The H&P was reviewed, patient examined and no changes noted. Date H&P Reviewed: Jul 29, 2017 Time H&P Reviewed: 11:08 Conscious Sedation Pre-Proced Time Reviewed: 11:08 ASA Class: 3 Airway Mallampati Classification: ([place] appropriate class) I. II. III, IV Lungs Heart ASA score ASA 1: a normal healthy patient ASA 2: a patient with a mild systemic disease (mid diabetes, controlled hypertension, obesity ASA 3: a patient with a severe systemic disease that limits activity (angina , COPD, prior Myocardial infarction) ASA 4: a patient with an incapacitating disease that is a constant threat to life (CHF, renal failure) ASA 5: a moribund patient not expected to survive 24 hrs. (ruptured aneurysm) ASA 6: a declared brain patient whose organs are being harvested. For emergent operations, add the letter E after the classification Grade 2 Sedation Plan: Analgesia, Amnesia, Plan communicated to team members, Discussed options with patient/fam, Discussed risks with patient/fam Note The patient is an appropriate candidate to undergo the planned procedure, sedation, and anesthesia. The patient immediately re-assessed prior to indication. STEPHANY COBOS MD FACP FAC CCDS Jul 29, 2017 11:08
--- NOTE | 2017-07-30 01:02 | OPERATIVE REPORT ---
DATE OF SERVICE: 07/29/2017 PREOPERATIVE DIAGNOSIS: Palpitations. POSTOPERATIVE DIAGNOSIS: Palpitations. PROCEDURE PERFORMED: Implantable loop recorder implantation (BioMonitor 2-AF, serial #[id number]). INDICATIONS FOR THE PROCEDURE: The patient is a 72-year-old gentleman, who continues to have palpitations, which we have not been able to document on a short-term ambulatory cardiac monitoring. Implantable loop recorder implantation was carried out after having obtained an informed consent. DESCRIPTION OF PROCEDURE: [facility] The left prepectoral area was prepped and draped in usual sterile fashion. Lidocaine 1%, local anesthesia. A small incision was made in the left prepectoral area in front of the second intercostal space and we used the implantation tool provided with the device to make a subcutaneous pocket into which the implantable loop recorder was advanced and the incision was closed with 3-0 Vicryl. He tolerated the procedure well. The device is a [email or web address] BioMonitor 2-AF with serial #[id number]. Job ID: [id number] DocumentID: [id number] Dictated Date: 07/29/2017 12:11:53 Esthetic Dermatologist Date: 07/30/2017 01:01:23 Dictated By: STEPHANY COBOS MD, MA, FACP, FACC, MTDD
== END | disposition home or self-care (01) ==
LOC: CATH 08:47
PROVIDERS: ATTEND Internal Medicine Cardiovascular Disease
DX: R00.2 Palpitations (principal); I25.10 Atherosclerotic heart disease of native coronary artery without angina pectoris; E78.5 Hyperlipidemia, unspecified; E66.9 Obesity, unspecified; Z68.31 Body mass index [BMI] 31.0-31.9, adult; G47.33 Obstructive sleep apnea (adult) (pediatric); I95.1 Orthostatic hypotension; I48.0 Paroxysmal atrial fibrillation; E11.9 Type 2 diabetes mellitus without complications; A69.20 Lyme disease, unspecified; A28.1 Cat-scratch disease; Z79.01 Long term (current) use of anticoagulants; Z79.84 Long term (current) use of oral hypoglycemic drugs; Z79.899 Other long term (current) drug therapy
CPT/HCPCS: 33282

== ENCOUNTER → 2018-06-02 | Outpatient (CLI) | payer MEDICARE ==
[~2018-06-02] MED LIST changes: -CEFDINIR 300 MG (OMNICEF) CAP PO NR; -CHRO200C PO; -HYDR200T PO; +HYDR200T78 PO; -LIDOCAINE 1% INJ 50 ML (XYLOCAINE) VIAL ONE; +METF-397 PO; -METF500T4 PO; +[UNRECOGNIZED DRUG - CODE] PO
== END ==
LOC: CARD 10:23
PROVIDERS: ATTEND Internal Medicine Cardiovascular Disease
DX: I48.0 Paroxysmal atrial fibrillation (principal); R00.2 Palpitations; G47.33 Obstructive sleep apnea (adult) (pediatric); I25.10 Atherosclerotic heart disease of native coronary artery without angina pectoris; I77.89 Other specified disorders of arteries and arterioles; E11.9 Type 2 diabetes mellitus without complications; E87.5 Hyperkalemia
CPT/HCPCS: 93306

== ENCOUNTER 2018-07-11 20:06 | Outpatient (CLI) | payer MEDICARE | END 2018-07-12 06:56 | disposition home or self-care (01) | LOC: SLEEP 20:06 | PROVIDERS: ATTEND Nurse Practitioner Family | DX: G47.33 Obstructive sleep apnea (adult) (pediatric) (principal); R09.02 Hypoxemia; G47.36 Sleep related hypoventilation in conditions classified elsewhere; G47.10 Hypersomnia, unspecified | CPT/HCPCS: 95811 ==

== ENCOUNTER → 2020-06-13 | Outpatient (CLI) | payer MEDICARE ==
[~2020-06-13] VITALS: Ht 177 cm; Wt 90.0 kg
[~2020-06-13] MED LIST changes: +CATHETER FLUSH 10 ML SYR IV PRN; +CHROMIUM PICO200 MCG PO; -HYDR-3454 PO; +HYDR-3455 PO; +REGADENOSON 0.4 MG/5 ML SYR (LEXISCAN) IV ONE; -RIVA20TA PO; +RIVA20TA2 PO; -[UNRECOGNIZED DRUG - CODE] PO
[2020-06-13 09:41] VITALS: BP 152/81
[2020-06-13 09:43] VITALS: BP 136/61
[2020-06-13 09:46] VITALS: BP 135/67
--- NOTE | 2020-06-13 12:23 | STRESS TEST ---
DATE OF SERVICE: 06/13/2020 RESTING AND POST REGADENOSON TECHNETIUM-99M TETROFOSMIN SPECT CT IMAGING Baseline images were carried out after injection of 10.47 mCi of technetium-99m Tetrofosmin. For stress imaging, a 28.1 mCi of technetium-99m Tetrofosmin were given after injection of 0.4 mg of regadenoson. The patient tolerated the procedure well. The electrocardiogram showed sinus rhythm at baseline and it did not change significantly with regadenoson infusion. Review of images at rest and following stress did not indicate any distinct perfusion defects consistent with significant myocardial ischemia or infarction. Gated images show normal global left ventricular systolic function with normal regional wall motion. Left ventricular ejection fraction is calculated to be 81%. Left ventricular end diastolic volume is 70 mL. TID is absent (1.02). CONCLUSIONS: 1. No evidence of any significant myocardial ischemia or infarction on this study. 2. Normal to hyperdynamic left ventricular systolic function with a calculated ejection fraction of 81%. 3. Normal regional wall motion. Job ID: [id number] DocumentID: [id number] Dictated Date: 06/13/2020 12:04:48 Gang Pusher Date: 06/13/2020 12:21:24 Dictated By: STEPHANY COBOS MD, MA, FACP, FACC,
== END ==
LOC: CARD 08:15
PROVIDERS: ATTEND Nurse Practitioner Family
DX: I25.10 Atherosclerotic heart disease of native coronary artery without angina pectoris (principal); I65.23 Occlusion and stenosis of bilateral carotid arteries; G47.33 Obstructive sleep apnea (adult) (pediatric); I48.0 Paroxysmal atrial fibrillation; E78.49 Other hyperlipidemia
CPT/HCPCS: 78452; 93017; A9502

== ENCOUNTER 2021-03-07 10:23 | Emergency (ER) | payer MEDICARE ==
[~2021-03-07] VITALS: Ht 177.8 cm; Wt 88.6 kg
[~2021-03-07 10:23] MED LIST changes: -CATHETER FLUSH 10 ML SYR IV PRN; -DOCU-238 PO; +DOCU-26 PO; +DOXY-311 PO; -DOXY100C42 PO; -REGADENOSON 0.4 MG/5 ML SYR (LEXISCAN) IV ONE
--- NOTE | 2021-03-07 10:49 | ED Back Pain ---
General Chief Complaint: Back Problems Stated Complaint: URINATING BLOOD,BACK PAIN Nursing Triage Note: AMB TO ROOM C/O BACK PAIN ONSET 4 DAY'S AGO. YESTERDAY WAS MOWING FOR 4 HOURS LAST NIGHT WHEN HE WENT TO BATHROOM NOTICED HIS URINE WAS DARK. AND TODAY WAS DARK. REORTS HE HAS DRANK. WATER. PMH OF LYMES DIEASE AND KIDNEY STONE Source of Information: Patient Exam Limitations: No Limitations History of Present Illness Date Seen by Provider: Mar 07, 2021 Time Seen by Provider: 10:48 Initial Comments To ER with right flank pain about 4 days ago. He thought his Lyme disease was flaring up. He was mowing on the riding lawnmower yesterday when he went to the bathroom and noticed dark brownish urine. He has had some left flank pain since then. He states that he is been drinking plenty of water and does not feel that his urine should be brown. However even into today his urine is dark brown. He does have a history of kidney stones. He is on Xarelto for history of atrial fibrillation. Location: Lumbar Spine Timing/Duration: 1-2 Days Severity: Moderate Associated Symptoms: denies symptoms Allergies and Home Medications Allergies Coded Allergies: No Known Drug Allergies (Unverified , 05/08/15) Home Medications Cinnamon Bark 500 Mg Capsule, 500 MG PO BID, (Reported) Coconut Oil 1,000 Mg Capsule, 1,000 MG PO DAILY, (Reported) Cyclobenzaprine HCl 10 Mg Tablet, 10 MG PO TID PRN for SPASMS Prescribed by: SABAS IVERSON on 01/12/17 174 Diltiazem HCl 180 Mg Cap.er.24h, 360 MG PO DAILY Prescribed by: AV KEEN on 10/18/16 0847 Diltiazem HCl 180 Mg Cap.er.24h, 180 MG PO DAILY, (Reported) Docusate Sodium 100 Mg Capsule, 100 MG PO BID, (Reported) Esomeprazole Magnesium 22.3 Mg Capsule.dr, 22.3 MG PO DAILY, (Reported) Fluticasone Propionate 16 Gm [place], 2 SPRAYS NA DAILY PRN for ALLERGIES, (Reported) Gabapentin 300 Mg Capsule, 900 MG PO HS, (Reported) Glucosa Torres 2Kcl/Chondroitin Torres 1 Each Capsule, 1 CAP PO BID, (Reported) Hydrocodone Bit/Acetaminophen 1 Each Tablet, 1 EACH PO Q4H PRN for PAIN Prescribed by: SABAS IVERSON on 01/12/17 1744 Hydrocodone/Acetaminophen 1 Each Tablet, 1 TAB PO Q4H PRN for PAIN-MODERATE (5- 7) Prescribed by: KENNY DRAPER on 03/07/21 1254 Lovastatin 40 Mg Tablet, 80 MG PO DAILY, (Reported) TAKES 2 (40MG) TABLETS Metformin HCl 500 Mg Tablet, 1,000 MG PO DAILY, (Reported) TAKES 2 (500MG) TABLETS Multivitamin 1 Each Tablet, 1 TAB PO DAILY, (Reported) Prednisone 20 Mg Tab, 20 MG PO DAILY Prescribed by: SABAS IVERSON on 01/12/17 1744 Rivaroxaban 20 Mg Tablet, 20 MG PO DAILY@1700 Prescribed by: AV KEEN on 10/18/16 0847 Rivaroxaban 20 Mg Tablet, 20 MG PO DAILY, (Reported) Tamsulosin HCl 0.4 Mg Cap, 0.4 MG PO DAILY Prescribed by: KENNY DRAPER on 03/07/21 1253 [AloeCure] , PO DAILY, (Reported) Patient Home Medication List Home Medication List Reviewed: Yes Review of Systems Constitutional: see HPI EENTM: see HPI Respiratory: no symptoms reported Cardiovascular: no symptoms reported Genitourinary: see HPI Musculoskeletal: no symptoms reported Skin: no symptoms reported Psychiatric/Neurological: No Symptoms Reported Past Crxxife-Llghli-Zrddta Hx Immunizations Up To Date Tetanus Booster (TDap): More than 5yrs Seasonal Allergies Seasonal Allergies: No Past Medical History Surgeries: Yes (STONE RETRIEVAL, HAMMER TOE REPAIR, HEART CATH) Orthopedic Respiratory: Yes (CPAP WITH O2) Sleep Apnea Currently Using CPAP: Yes Currently Using BIPAP: No Cardiac: Yes Atrial Fibrillation, Coronary Artery Disease, High Cholesterol, Hypertension, Rheumatic Fever Neurological: Yes (LYME DISEASE, NEUROPATHY OF TOES ) Neuropathy Reproductive Disorders: No Sexually Transmitted Disease: No HIV/AIDS: No Genitourinary: Yes Kidney Stones Gastrointestinal: Yes Gastroesophageal Reflux, Ulcer Musculoskeletal: Yes Arthritis, Chronic Back Pain, Spasms Endocrine: Yes Diabetes, Non-Insulin dep Loss of Vision: Bilateral Hearing Impairment: Bilateral Hearing Aide Cancer: Yes Prostate, Skin Psychosocial: No Integumentary: No Blood Disorders: No Adverse Reaction/Blood Tranf: No Family Medical History Cardiovascular disease 19 FATHER, Age:93 Diabetes mellitus 19 FATHER, Age:93 FH: bladder cancer 19 FATHER, Age:93 FH: congestive heart failure 19 MOTHER, FH: leukemia PATERNAL GRANDMOTHER, FH: mental illness G8 SISTER Heart valve abnormality 19 MOTHER, Hypertension 19 FATHER, Age:93 G8 SISTER Kidney disease 19 FATHER, Age:93 Prostate cancer 19 FATHER, Age:93 Physical Exam Vital Signs Vital Signs - First Documented 03/07/21 10:36 Temp 36.0 Pulse 79 Resp 18 B/P (MAP) 185/95 (125) Pulse Ox 79 Capillary Refill : Less Than 3 Seconds Height, Weight, BMI Height: 5'10.00" Weight: 220lbs. 0.0oz. [id number]; 28.00 BMI Method:Estimated General Appearance: No Apparent Distress, WD/WN Neck: Full Range of Motion, Normal Inspection Cardiovascular: Regular Rate, Rhythm, Normal Peripheral Pulses Respiratory: Normal Breath Sounds, No Accessory Muscle Use, No Respiratory Distress Gastrointestinal: Normal Bowel Sounds, Non Tender, Soft Back: CVA Tenderness (L) Extremity: Normal Capillary Refill, Normal Inspection Neurologic/Psychiatric: Alert, Oriented x3 Skin: Normal Color, Warm/Dry Progress/Results/Core Measures Results/Orders Lab Results Laboratory Tests Test 03/07/21 10:57 03/07/21 12:03 Range/Units White Blood Count 3.8 L 4.3-11.0 10^3/uL Red Blood Count 4.68 4.30-5.52 10^6/uL Hemoglobin 14.5 13.3-17.7 g/dL Hematocrit 44 40-54 % Mean Corpuscular Volume 95 80-99 fL Mean Corpuscular Hemoglobin 31 25-34 pg Mean Corpuscular Hemoglobin Concent 33 32-36 g/dL Red Cell Distribution Width 12.7 10.0-14.5 % Platelet Count 143 130-400 10^3/uL Mean Platelet Volume 10.3 9.0-12.2 fL Immature Granulocyte % (Auto) 1 % Neutrophils (%) (Auto) 53 42-75 % Lymphocytes (%) (Auto) 34 12-44 % Monocytes (%) (Auto) 10 0-12 % Eosinophils (%) (Auto) 1 0-10 % Basophils (%) (Auto) 1 0-10 % Neutrophils # (Auto) 2.0 1.8-7.8 10^3/uL Lymphocytes # (Auto) 1.3 1.0-4.0 10^3/uL Monocytes # (Auto) 0.4 0.0-1.0 10^3/uL Eosinophils # (Auto) 0.1 0.0-0.3 10^3/uL Basophils # (Auto) 0.0 0.0-0.1 10^3/uL Immature Granulocyte # (Auto) 0.0 0.0-0.1 10^3/uL Prothrombin Time 13.4 12.2-14.7 SEC INR Comment 1.0 0.8-1.4 Activated Partial Thromboplast Time 29 24-35 SEC Sodium Level 136 135-145 MMOL/L Potassium Level 4.7 3.6-5.0 MMOL/L Chloride Level 102 98-107 MMOL/L Carbon Dioxide Level 23 21-32 MMOL/L Anion Gap 11 5-14 MMOL/L Blood Urea Nitrogen 13 7-18 MG/DL Creatinine 0.86 0.60-1.30 MG/DL Estimat Glomerular Filtration Rate 87 BUN/Creatinine Ratio 15 Glucose Level 149 H 70-105 MG/DL Calcium Level 9.1 8.5-10.1 MG/DL Corrected Calcium 9.1 8.5-10.1 MG/DL Total Bilirubin 0.3 0.1-1.0 MG/DL Aspartate Amino Transf (AST/SGOT) 19 5-34 U/L Alanine Aminotransferase (ALT/SGPT) 20 0-55 U/L Alkaline Phosphatase 68 40-136 U/L Total Protein 6.6 6.4-8.2 GM/DL Albumin 4.0 3.2-4.5 GM/DL Urine Color BROWN H Urine Clarity CLOUDY Urine pH 8.5 5-9 Urine Specific [place] 1.015 L 1.016-1.022 Urine Protein NEGATIVE NEGATIVE Urine Glucose (UA) NEGATIVE NEGATIVE Urine Ketones NEGATIVE NEGATIVE Urine Nitrite NEGATIVE NEGATIVE Urine Bilirubin NEGATIVE NEGATIVE Urine Urobilinogen 0.2 < = 1.0 MG/DL Urine Leukocyte Esterase NEGATIVE NEGATIVE Urine RBC (Auto) 3+ H NEGATIVE Urine RBC TNTC H /HPF Urine WBC 5-10 H /HPF Urine Crystals NONE /LPF Urine Bacteria FEW H /HPF Urine Casts NONE /LPF Urine Mucus NEGATIVE /LPF Urine Culture Indicated YES My Orders Orders - KENNY DRAPER PHYS ASSISTANT Protime With Inr (03/07/21 10:42) Partial Thromboplastin Time (03/07/21 10:42) Cbc With Automated Diff (03/07/21 10:42) Comprehensive Metabolic Panel (03/07/21 10:42) Ua Culture If Indicated (03/07/21 10:42) Ed Iv/Invasive Line Start (03/07/21 10:42) Ct Abd/Pelvis Wo(Kidney Stone) (03/07/21 10:46) Abdomen/Kub 1view (03/07/21 10:46) Urine Culture (03/07/21 12:03) Vital Signs/I&O 03/07/21 10:36 Temp 36.0 Pulse 79 Resp 18 B/P (MAP) 185/95 (125) Pulse Ox 79 Blood Pressure Mean: 125 Diagnostic Imaging Reviewed: Reviewed by Me Departure Communication (Admissions) Hemoglobin is stable, this is a 4 mm stone and in theory should be able to be passed without intervention as such I will not have him hold his Eliquis at this point. NAME: JHOANA ARCHULETA [facility] REC#: [id number] PT STATUS: REG ER : 1945 PHYSICIAN: KENNY DRAPER APRN ADMIT DATE: 03/07/21/ER Draft Date of Exam:03/07/21 CT ABD/PELVIS WO(KIDNEY STONE) PROCEDURE: CT urinary tract, rule out kidney stone. TECHNIQUE: Multiple contiguous axial images were obtained through the abdomen and pelvis without the use of intravenous contrast. Auto Exposure Controls were utilized during the CT exam to meet ALARA standards for radiation dose reduction. INDICATION: 75-year-old male, hematuria, back pain x1 week. CORRELATION STUDY: None. FINDINGS: LOWER THORAX: Clear. LIVER: Small scattered calcified granulomas. GALLBLADDER: Present and unremarkable. No bile duct dilatation. SPLEEN: A few scattered calcified granulomas. PANCREAS: Unremarkable. ADRENAL GLANDS: Unremarkable. KIDNEYS: Mild diffuse thinning of the renal parenchyma both kidneys. Approximately 4 mm calcification at the right UPJ. No significant obstruction. Additional nonobstructing right renal stones. ABDOMINAL AORTA: Mild wall calcification, nonaneurysmal. GASTROINTESTINAL TRACT: Stomach is mildly distended with retained gastric contents. No small bowel obstruction. Mild stool through the colon. Normal appendix. A few colonic diverticuli without acute diverticulitis. URINARY BLADDER: Relatively decompressed but appearing unremarkable. REPRODUCTIVE: Few calcifications of the prostate gland. OSSEOUS STRUCTURES: Mild multilevel degenerative change. OTHER: Fat-containing inguinal hernias left slightly larger than right. Likely small amount of fluid perhaps hydrocele partially visualized superior scrotal sac. IMPRESSION: 1. Approximately 4 mm stone right UPJ. No significant obstruction. A few additional nonobstructing right renal stones. Dictated on workstation # [id number] Dict: 03/07/21 1204 Trans: 03/07/21 1218 PHILIP [id number] Interpreted by: SANKET SANCHEZ DO Electronically signed by: Impression Primary Impression: Hematuria Additional Impression: Ureteropelvic junction calculus Disposition: HOME, SELF-CARE Condition: Stable Departure-Patient Inst. Decision time for Depature: 12:44 Referrals: NIGHAT PENDLETON DO (PCP/Family) Primary Care Physician Patient Instructions: How to Strain Your Urine, Kidney Stones (DC) Add. Discharge Instructions: 1. Increase fluid intake 2. Call Dr. Herrera for follow-up. All discharge instructions reviewed with patient and/or family. Voiced understanding. Scripts Cefuroxime Axetil (Cefuroxime) 250 Mg Tablet 250 MG PO BID, #10 TAB Prov: KENNY DRAPER APRN 03/07/21 Hydrocodone/Acetaminophen (Hydrocodone-Acetamin 5-325 mg) 1 Each Tablet 1 TAB PO Q4H PRN for PAIN-MODERATE (5-7), #20 TAB Prov: KENNY DRAPER APRN 03/07/21 Tamsulosin HCl (Flomax) 0.4 Mg Cap 0.4 MG PO DAILY, #20 CAP Prov: KENNY DRAPER APRN 03/07/21 Copy Copies To 1: CELE HERRERA MD, PETER J APRN Mar 07, 2021 10:49
[2021-03-07 11:03] LABS: BASOPHILS % (AUTO) 1 % (0-10); EOSINOPHILS # (AUTO) 0.1 10^3/uL (0.0-0.3); EOSINOPHILS % (AUTO) 1 % (0-10); HEMATOCRIT 44 % (40-54); HEMOGLOBIN 14.5 g/dL (13.3-17.7); LYMPHOCYTES # (AUTO) 1.3 10^3/uL (1.0-4.0); LYMPHOCYTES % (AUTO) 34 % (12-44); MEAN CORPUSCULAR HEMOGLOBIN 31 pg (25-34); MEAN CORPUSCULAR HGB CONC 33 g/dL (32-36); MEAN CORPUSCULAR VOLUME 95 fL (80-99); MEAN PLATELET VOLUME 10.3 fL (9.0-12.2); MONOCYTES # (AUTO) 0.4 10^3/uL (0.0-1.0); MONOCYTES % (AUTO) 10 % (0-12); NEUTROPHILS % (AUTO) 53 % (42-75); PLATELET COUNT 143 10^3/uL (130-400); WHITE BLOOD COUNT 3.8 10^3/uL (4.3-11.0)
[2021-03-07 11:16] LABS: POTASSIUM 4.7 MMOL/L (3.6-5.0)
[2021-03-07 11:17] LABS: CALCIUM 9.1 MG/DL (8.5-10.1)
[2021-03-07 11:18] LABS: TOTAL PROTEIN 6.6 GM/DL (6.4-8.2)
[2021-03-07 11:20] LABS: BILIRUBIN,TOTAL 0.3 MG/DL (0.1-1.0); PROTHROMBIN TIME PATIENT 13.4 SEC (12.2-14.7)
[2021-03-07 11:22] LABS: CREATININE SERUM 0.86 MG/DL (0.60-1.30)
[2021-03-07 12:12] LABS: BILIRUBIN,URINE NEGATIVE (NEGATIVE); CLARITY,URINE CLOUDY; COLOR,URINE BROWN; GLUCOSE, URINE (UA) NEGATIVE (NEGATIVE); KETONES,URINE NEGATIVE (NEGATIVE); LEUKOCYTE ESTERASE ,URINE NEGATIVE (NEGATIVE); NITRITE,URINE NEGATIVE (NEGATIVE); PH,URINE 8.5 (5-9); PROTEIN,URINE NEGATIVE (NEGATIVE)
--- NOTE | 2021-03-07 12:16 | Diagnostic Imaging Report ---
EXAMINATION: Abdomen 1 view HISTORY: left flank pain COMPARISON: CT abdomen and pelvis from 03/07/2021. FINDINGS: There is a moderate amount of gas and stool throughout the colon. Nonobstructive bowel gas pattern. No radiopaque foreign body. The osseous structures are intact. IMPRESSION: Moderate stool burden without other acute abnormality in the abdomen. Dictated by: Dictated on workstation # [id number]
--- NOTE | 2021-03-07 12:19 | Diagnostic Imaging Report ---
PROCEDURE: CT urinary tract, rule out kidney stone. TECHNIQUE: Multiple contiguous axial images were obtained through the abdomen and pelvis without the use of intravenous contrast. Auto Exposure Controls were utilized during the CT exam to meet ALARA standards for radiation dose reduction. INDICATION: 75-year-old male, hematuria, back pain x1 week. CORRELATION STUDY: None. FINDINGS: LOWER THORAX: Clear. LIVER: Small scattered calcified granulomas. GALLBLADDER: Present and unremarkable. No bile duct dilatation. SPLEEN: A few scattered calcified granulomas. PANCREAS: Unremarkable. ADRENAL GLANDS: Unremarkable. KIDNEYS: Mild diffuse thinning of the renal parenchyma both kidneys. Approximately 4 mm calcification at the right UPJ. No significant obstruction. Additional nonobstructing right renal stones. ABDOMINAL AORTA: Mild wall calcification, nonaneurysmal. GASTROINTESTINAL TRACT: Stomach is mildly distended with retained gastric contents. No small bowel obstruction. Mild stool through the colon. Normal appendix. A few colonic diverticuli without acute diverticulitis. URINARY BLADDER: Relatively decompressed but appearing unremarkable. REPRODUCTIVE: Few calcifications of the prostate gland. OSSEOUS STRUCTURES: Mild multilevel degenerative change. OTHER: Fat-containing inguinal hernias left slightly larger than right. Likely small amount of fluid perhaps hydrocele partially visualized superior scrotal sac. IMPRESSION: 1. Approximately 4 mm stone right UPJ. No significant obstruction. A few additional nonobstructing right renal stones. Dictated by: Dictated on workstation # [id number]
[2021-03-07 12:21] LABS: BACTERIA,URINE FEW /HPF; RBC,URINE TNTC /HPF
[2021-03-07] MEDS ORDERED: TMSL.4C PO (12:53)
[2021-03-07] MEDS ORDERED: ACHD5005 PO (12:53)
[2021-03-07] MEDS ORDERED: CEFU250T80 PO (12:56)
[2021-03-07] MEDS ORDERED: cefTRIAXone 1,000 MG in WATER (STERILE) FOR INJECTION 10 ML IV ONE (13:00)
[2021-03-07 13:37] VITALS: BP 168/85
== END 2021-03-07 13:36 | disposition home or self-care (01) ==
LOC: EDUNIT# 10:23 → ER 10:25
DX: N20.1 Calculus of ureter (principal); G47.30 Sleep apnea, unspecified; I10 Essential (primary) hypertension; E78.00 Pure hypercholesterolemia, unspecified; I48.91 Unspecified atrial fibrillation; I25.10 Atherosclerotic heart disease of native coronary artery without angina pectoris; K21.9 Gastro-esophageal reflux disease without esophagitis; E11.9 Type 2 diabetes mellitus without complications; G89.29 Other chronic pain; M54.9 Dorsalgia, unspecified; Z79.899 Other long term (current) drug therapy; Z79.891 Long term (current) use of opiate analgesic; Z79.01 Long term (current) use of anticoagulants; Z79.84 Long term (current) use of oral hypoglycemic drugs
CPT/HCPCS: 36415; 74018; 74176; 80053; 81000; 85025; 85610; 85730; 87088

== ENCOUNTER → 2021-03-12 | Outpatient (CLI) | payer MEDICARE ==
[~2021-03-12] MED LIST changes: +CARB200T6 PO; +CEFU250T80 PO; +CHOL-11 PO; +DILT120C10 PO; +FLEC100T PO; +KETO10TA PO; +LOVA20TA2 PO; +NITR-65 PO; +OMEG1CAP58 PO; +PANT40TA52 PO; +SUCR1TAB PO; +TMSL.4C PO
--- NOTE | 2021-03-12 15:54 | Diagnostic Imaging Report ---
INDICATION: Right-sided kidney stone. COMPARISON: 03/07/2021 FINDINGS: 2 supine radiographic views of the abdomen were obtained. Small bowel loops are nondistended. There is no large collection of free intraperitoneal air. No unexpected extraosseous calcifications or radiopaque foreign bodies are seen. Moderate air and stool are seen scattered throughout the colon. Multiple pelvic phleboliths are identified. Osseous structures show no acute abnormalities. Included portions of the lung bases are clear. IMPRESSION: 1. No unexpected extraosseous calcification is seen. Please note however that a small renal or ureteral calculus may be obscured on radiographs. If there is persistent concern for retained stone, repeat CT is recommended. 2. Nonobstructed small bowel gas pattern. Dictated by: Dictated on workstation # [id number]
== END ==
LOC: RAD 13:58
PROVIDERS: ATTEND Urology
DX: N20.2 Calculus of kidney with calculus of ureter (principal)
CPT/HCPCS: 74018

== ENCOUNTER 2021-03-13 06:06 | Day surgery (SDC) | payer MEDICARE ==
[~2021-03-13] VITALS: Ht 177.8 cm; Wt 88.6 kg
[2021-03-13] VITALS (11 sets, daily range): BP systolic 114–155; BP diastolic 74–95
[~2021-03-13 06:06] MED LIST changes: -CARB200T6 PO; -CHOL-11 PO; -DILT120C10 PO; -FLEC100T PO; -KETO10TA PO; -LOVA20TA2 PO; -NITR-65 PO; -OMEG1CAP58 PO; -PANT40TA52 PO; -SUCR1TAB PO
[2021-03-13] MEDS ORDERED: cefTRIAXone 1,000 MG in WATER (STERILE) FOR INJECTION 10 ML IV ONE (06:15)
[2021-03-13] MEDS ORDERED: DILT120C10 PO (06:27)
[2021-03-13] MEDS ORDERED: FLEC100T PO (06:27)
[2021-03-13] MEDS ORDERED: PANT40TA52 PO (06:27)
[2021-03-13] MEDS ORDERED: SUCR1TAB PO (06:27)
[2021-03-13] MEDS ORDERED: LOVA20TA2 PO (06:27)
[2021-03-13] MEDS ORDERED: OMEG1CAP58 PO (06:27)
[2021-03-13] MEDS ORDERED: CHOL-11 PO (06:27)
[2021-03-13] MEDS ORDERED: CARB200T6 PO (06:27)
[2021-03-13] MEDS: LACTATED RINGERS 1,000 ML IV PRN ×2 (07:00→08:46)
--- NOTE | 2021-03-13 07:00 | Progress Note-Pre Operative ---
Pre-Operative Progress Note H&P Reviewed The H&P was reviewed, patient examined and no changes noted. Date Seen by Provider: Mar 13, 2021 Time Seen by Provider: 07:00 Date H&P Reviewed: Mar 13, 2021 Time H&P Reviewed: 07:00 Pre-Operative Diagnosis: RT PROXIMAL URETERAL STONE CELE HERRERA MD Mar 13, 2021 07:00
--- NOTE | 2021-03-13 07:05 | Progress Note-Post Operative ---
Post-Operative Progess Note Surgeon (s)/Dynamic Balancer (s) Surgeon CELE HERRERA MD Dynamic Balancer: NONE Pre-Operative Diagnosis RT PROXIMAL URETERAL STONE Post-Operative Diagnosis SAME Procedure & Operative Findings Date of Procedure 03/13/21 Procedure Performed/Findings CYSTOSCOPY, RT URETEROSCOPY, RT RETROGRADE UROGRAM, AND RT STENT Anesthesia Type GENERAL Estimated Blood Loss Estimated blood loss (mL): NONE Specimens/Packing Specimens Removed NONE Packing: NONE CELE HERRERA MD Mar 13, 2021 07:05
--- NOTE | 2021-03-13 07:07 | Discharge Inst-Urology ---
Discharge Inst-Urology Reconcile Patient Problems Problems Reviewed?: Yes Final Diagnosis RT PROXIMAL URETERAL STONE Patient Instructions/Follow Up Plan/Assessment/Instructions Please make appointment to been seen in office next Friday, KUB prior to it KUB on way home. In 48 hours, if no bleeding, may resume ASA. Hold if bleeding Increase oral fluids for 48 hours and then as needed. Diet and Activity as tolerated. If questions or concerns contact your physician Or seek help at emergency department. CELE HERRERA MD Mar 13, 2021 07:07
[2021-03-13] MEDS ORDERED: proPOfol 200 MG/20 ML (DIPRIVAN) VIAL IV ONE (07:23)
[2021-03-13] MEDS ORDERED: fentaNYL INJ 100 MCG/2 ML AMP ONE ×2 (07:23→09:26)
[2021-03-13] MEDS ORDERED: GLYCOPYRROLATE 0.2 MG/ML (ROBINUL) 2 ML VIAL ONE (07:23)
[2021-03-13] MEDS ORDERED: LIDOCAINE PF 2% 5 ML (XYLOCAINE) VIAL ONE (07:23)
[2021-03-13] MEDS ORDERED: ROCURONIUM 10 MG/ML 5 ML SYRINGE IV ONE (07:23)
[2021-03-13] MEDS ORDERED: NEOSTIGMINE 3 MG/3 ML VIAL ONE (07:23)
[2021-03-13] MEDS ORDERED: ONDANSETRON 4 MG/2 ML (SDV) Z0FRAN ONE (07:23)
[2021-03-13] MEDS ORDERED: IOPAMIDOL 61% 30 ML (ISOVUE 300) VIAL URETERAL ONE (07:40)
[2021-03-13] MEDS ORDERED: SEVOFLURANE (ULTANE) 15 ML INHAL SOLN ONE (07:51)
[2021-03-13] MEDS ORDERED: FUROSEMIDE 40 MG/4 ML INJ (LASIX) ONE (07:53)
[2021-03-13] MEDS ORDERED: KETOROLAC 30 MG/ML VIAL ONE (07:53)
[2021-03-13] MEDS ORDERED: morphine INJ 10 MG/ML 1ML (SYR OR VIAL) IVP ONE (08:15)
[2021-03-13] MEDS ORDERED: ONDANSETRON 4 MG/2 ML (SDV) Z0FRAN IVP PRN (08:15)
--- NOTE | 2021-03-13 08:24 | Anesthesia-General Post-Op ---
General Patient Condition Mental Status/LOC: Same as Preop Cardiovascular: Satisfactory Nausea/Vomiting: Absent Respiratory: Satisfactory Pain: Controlled Complications: Absent Post Op Complications Complications None Follow Up Care/Instructions Patient Instructions None needed. Anesthesia/Patient Condition Patient Condition Patient is doing well, no complaints, stable vital signs, no apparent adverse anesthesia problems. SYLVIA DONAHUE DO Mar 13, 2021 08:24
[2021-03-13] MEDS ORDERED: NITR-65 PO ×2 (08:32→08:38)
[2021-03-13] MEDS ORDERED: TMSL.4C PO ×2 (08:34→08:38)
[2021-03-13] MEDS ORDERED: KETO10TA PO (08:36)
--- NOTE | 2021-03-13 08:39 | Diagnostic Imaging Report ---
INDICATION: Urinary tract calculus Supine images of the abdomen are obtained with comparison made to study of 03/12/2021 There is moderate amount of stool throughout colon. Minimal punctate calcification is seen in the right mid abdomen to the right of inferior endplate of L2. This was likely present on the previous study and could represent nephrolithiasis or proximal ureteric stone. Otherwise there are numerous bilateral calcified phleboliths in the pelvis. No other pathologic abdominal calcification is seen. IMPRESSION: Stable appearance of the abdomen with calcified phleboliths in the pelvis and questionable minimal calculus at the level of the right ureteropelvic junction. Dictated by: Dictated on workstation # [id number]
[2021-03-13] MEDS ORDERED: fentaNYL INJ 100 MCG/2 ML AMP IVP ONE (09:15)
--- NOTE | 2021-03-13 11:15 | Diagnostic Imaging Report ---
INDICATION: Evaluation for ureteral stent and calculi. Comparison with 03/13/2021 exam. FINDINGS: The double-J stent is present extending from the kidney to the bladder. There are no calculi seen along the course of the stent. There is considerable stool obscuring the renal shadows bilaterally. IMPRESSION: Satisfactory appearing position of double-J stent on the right. Dictated by: Dictated on workstation # [id number]
--- NOTE | 2021-03-13 12:33 | OPERATIVE REPORT ---
DATE OF SERVICE: 03/13/2021 PREOPERATIVE DIAGNOSIS: Right proximal ureteral stone. POSTOPERATIVE DIAGNOSIS: Right proximal ureteral stone. OPERATION PERFORMED: Cystoscopy, right ureteroscopy, right retrograde urogram and insertion of right stent. SURGEON: Orlando Herrera MD ANESTHESIA: General. COMPLICATIONS: None. DESCRIPTION OF PROCEDURE: Under satisfactory general anesthesia, the patient in lithotomy position, genitalia were prepped and draped in the usual sterile fashion. Cystoscope was introduced under vision. The anterior urethra was normal. The prostate was small, but there was a median bar. Bladder was entered after normal except for some trabeculation and sluggish efflux on the right side. Using the foroblique lens, I dilated the right ureteral orifice intramural portion. I passed a ureteral catheter all the way up to the kidney with no resistance, was noted again and there was a gush of efflux coming from the ureter with no problem. I removed the cystoscope, inserted the 6.9 Latvian semi-rigid ureteroscope, went all the way to the mid ureter. There were no stones. I could not manipulate it farther. I injected contrast and there was no filling defect. The pelvicaliceal system was sharp and not dilated as well as the ureter and I could not see any filling defect, any place of the system. I removed the ureteroscope and decided to insert a stent to make sure that if he has still stone. It will pass around the stent in order to dilate the ureter and allow the stone to drop, so I inserted the cystoscope, passed a 6-Latvian 26 cm double-J stent all the way up to the right renal pelvis guided fluoroscopically. I removed the guidewire and the stent was seen draining nicely proximally fluoroscopically and distally endoscopically. Bladder was evacuated and cystoscope was removed. The patient tolerated the procedure and anesthesia well and was sent to recovery room in stable condition. PLAN: We will see him back in a week, get a KUB probably take the stent out and manage accordingly after that. He may resume his Xarelto if he has no bleeding and stop it if he has bleeding. Job ID: [id number] DocumentID: [id number] Dictated Date: 03/13/2021 08:14:37 Envelope Folding Machine Adjuster Date: 03/13/2021 12:32:53 Dictated By: ORLANDO HERRERA MD
== END 2021-03-13 11:50 | disposition home or self-care (01) ==
LOC: SDC 06:06
PROVIDERS: ATTEND Urology
DX: N20.1 Calculus of ureter (principal); I10 Essential (primary) hypertension; I48.91 Unspecified atrial fibrillation; G47.33 Obstructive sleep apnea (adult) (pediatric); E11.9 Type 2 diabetes mellitus without complications; Z79.899 Other long term (current) drug therapy; Z79.84 Long term (current) use of oral hypoglycemic drugs
CPT/HCPCS: 52332; 74018; 76000; 87081; C2625

== ENCOUNTER 2021-03-15 15:54 | Emergency (ER) | payer MEDICARE ==
[~2021-03-15] VITALS: Ht 177 cm; Wt 88.0 kg
[~2021-03-15 15:54] MED LIST changes: +CARB200T6 PO; +CHOL-11 PO; +DILT120C10 PO; +FLEC100T PO; +KETO10TA PO; +LOVA20TA2 PO; +NITR-65 PO; +OMEG1CAP58 PO; +PANT40TA52 PO; +SUCR1TAB PO
[2021-03-15 17:12] LABS: BASOPHILS % (AUTO) 0 % (0-10); EOSINOPHILS # (AUTO) 0.1 10^3/uL (0.0-0.3); EOSINOPHILS % (AUTO) 2 % (0-10); HEMATOCRIT 40 % (40-54); HEMOGLOBIN 13.1 g/dL (13.3-17.7); LYMPHOCYTES # (AUTO) 1.3 10^3/uL (1.0-4.0); LYMPHOCYTES % (AUTO) 23 % (12-44); MEAN CORPUSCULAR HEMOGLOBIN 31 pg (25-34); MEAN CORPUSCULAR HGB CONC 33 g/dL (32-36); MEAN CORPUSCULAR VOLUME 94 fL (80-99); MEAN PLATELET VOLUME 10.5 fL (9.0-12.2); MONOCYTES # (AUTO) 0.5 10^3/uL (0.0-1.0); MONOCYTES % (AUTO) 9 % (0-12); NEUTROPHILS # (AUTO) 3.7 10^3/uL (1.8-7.8); NEUTROPHILS % (AUTO) 65 % (42-75); PLATELET COUNT 140 10^3/uL (130-400); WHITE BLOOD COUNT 5.7 10^3/uL (4.3-11.0)
[2021-03-15 17:21] LABS: ALBUMIN 3.8 GM/DL (3.2-4.5); POTASSIUM 5.1 MMOL/L (3.6-5.0)
[2021-03-15 17:22] LABS: CALCIUM 9.4 MG/DL (8.5-10.1)
[2021-03-15 17:24] LABS: TOTAL PROTEIN 6.4 GM/DL (6.4-8.2)
[2021-03-15 17:25] LABS: BILIRUBIN,TOTAL 0.3 MG/DL (0.1-1.0)
[2021-03-15 17:27] LABS: CREATININE SERUM 1.1 MG/DL (0.60-1.30)
--- NOTE | 2021-03-15 17:36 | ED GU-Male ---
General Chief Complaint: - Urinary Stated Complaint: STENT PLACED IN KIDNEY / BLOOD IN URINE /INAB URIN Nursing Triage Note: PT REPORTS TO ED FOR C/O OF NOT BEING ABLE TO URINATE SINCE THIS MORNING. PT HAD SURGERY 03/13 IN ATTEMPTS TO REMOVE A KIDNEY STONE. SURGEON UNABLE TO REMOVE DUE TO LOCATION, STENT WAS PLACED ON RT KIDNEY INSTEAD. PT HAD BEEN URINATING FINE UNTIL TODAY. PT AMB. TO ROOM 04 WIHTOUT DIFFICULTY. Source: patient Exam Limitations: no limitations (KENNY DRAPER APRN) History of Present Illness Date Seen by Provider: Mar 15, 2021 Time Seen by Provider: 17:00 Initial Comments To ER with reports of not being able to urinate. He had attempted stone basketing on 03/13/2021 for a right ureteral stone. That was unsuccessful so a ureteral stent was placed. His urine cleared up. He has been urinating fine until today. He has had 48 ounces of water to drink since noon and has had minimal urine output. No fevers or chills. No sensation of bladder fullness but he is concerned that he is not producing urine. Timing/Duration: constant Severity/Quality: moderate Location: unknown Radiation: none Activities at Onset: none Sexual [place] History: not active Associated Symptoms: denies symptoms (KENNY DRAPER APRN) Allergies and Home Medications Allergies Coded Allergies: Penicillins (Verified Allergy, Unknown, 03/13/21) Home Medications Carbamazepine 200 Mg Tablet, 200 MG PO DAILY, (Reported) Cholecalciferol (Vitamin D3) 250 Mcg Tablet, 500 MCG PO BID, (Reported) Cinnamon Bark 500 Mg Capsule, 1,000 MG PO BID, (Reported) Diltiazem HCl 120 Mg Cap.er.12h, 120 MG PO BID, (Reported) Docusate Sodium 100 Mg Capsule, 100 MG PO BID, (Reported) Flecainide Acetate 100 Mg Tablet, 100 MG PO Q12H, (Reported) Glucosa Torres 2Kcl/Chondroitin Torres 1 Each Capsule, 1 CAP PO BID, (Reported) Ketorolac Tromethamine 10 Mg Tablet, 10 MG PO Q6H Prescribed by: KELLY MIDDLETON on 03/13/21 0836 Lovastatin 20 Mg Tablet, 20 MG PO DAILY, (Reported) Metformin HCl 500 Mg Tablet, 1,000 MG PO DAILY, (Reported) TAKES 2 (500MG) TABLETS Multivitamin 1 Each Tablet, 1 TAB PO DAILY, (Reported) Nitrofurantoin Monohyd/M-Cryst 100 Mg Capsule, 1 TAB PO BID Prescribed by: KELLY MIDDLETON on 03/13/21 0838 [place]-3 Fatty Acids/Fish Oil 1 Each Capsule, 1 EACH PO BID, (Reported) Pantoprazole Sodium 40 Mg Tablet.dr, 40 MG PO DAILY, (Reported) Sucralfate 1 Gm Tablet, 1 GM PO PRN, (Reported) Tamsulosin HCl 0.4 Mg Cap, 0.4 MG PO DAILY Prescribed by: KELLY MIDDLETON on 03/13/21 0838 Patient Home Medication List Home Medication List Reviewed: Yes (KENNY DRAPER APRN) Review of Systems Review of Systems Constitutional: see HPI EENTM: see HPI Respiratory: no symptoms reported Cardiovascular: no symptoms reported Genitourinary: no symptoms reported Musculoskeletal: no symptoms reported Skin: no symptoms reported Psychiatric/Neurological: No Symptoms Reported Endocrine: No Symptoms Reported Hematologic/Lymphatic: No Symptoms Reported (KENNY DRAPER APRN) Past Rgbxmih-Dsbzgd-Ptfgna Hx Patient Social History Tobacco Use?: No Substance use?: No Alcohol Use?: No (KENNY DRAPER APRN) Immunizations Up To Date Tetanus Booster (TDap): More than 5yrs First/Initial COVID19 Vaccinat: 09/2020 Second COVID19 Vaccination Joseph: 10/2020 COVID19 Vaccine Senior Education Specialist: MICHELET (KENNY DRAPER APRN) Seasonal Allergies Seasonal Allergies: No (KENNY DRAPER APRN) Past Medical History Surgery/Hospitalization HX: 03/13/21 PT HAD STENT PLACED IN RT KIDNEY IN ATTEMPTS TO REMOVE STONE. 2019 PT HAD A HEART ABLATION. Surgeries: Yes (STONE RETRIEVAL, HAMMER TOE REPAIR, HEART CATH, HEART ABLATION) Adenoidectomy, Orthopedic, Tonsillectomy Respiratory: Yes (bipap at night) Sleep Apnea Currently Using CPAP: Yes Currently Using BIPAP: No Cardiac: Yes Atrial Fibrillation, Coronary Artery Disease, High Cholesterol, Hypertension, Rheumatic Fever Neurological: Yes (LYME DISEASE, NEUROPATHY OF TOES ) Neuropathy Reproductive Disorders: No Sexually Transmitted Disease: No HIV/AIDS: No Genitourinary: Yes Kidney Stones Gastrointestinal: Yes Gastroesophageal Reflux, Chronic Constipation, Ulcer Musculoskeletal: Yes (BRANDI) Arthritis, Chronic Back Pain, Spasms Endocrine: Yes Diabetes, Non-Insulin dep HEENT: Yes Cataract Loss of Vision: Bilateral Hearing Impairment: Bilateral Hearing Aide Cancer: Yes Skin Psychosocial: No Integumentary: No Blood Disorders: No Adverse Reaction/Blood Tranf: No (KENNY DRAPER APRN) Family Medical History Cardiovascular disease 19 FATHER, Age:93 Diabetes mellitus 19 FATHER, Age:93 FH: bladder cancer 19 FATHER, Age:93 FH: congestive heart failure 19 MOTHER, FH: leukemia PATERNAL GRANDMOTHER, FH: mental illness G8 SISTER Heart valve abnormality 19 MOTHER, Hypertension 19 FATHER, Age:93 G8 SISTER Kidney disease 19 FATHER, Age:93 Prostate cancer 19 FATHER, Age:93 Physical Exam Vital Signs Vital Signs - First Documented 03/15/21 16:55 Temp 36.0 Pulse 52 Resp 16 B/P (MAP) 139/73 (95) Pulse Ox 95 O2 Delivery Room Air (SABAS WOODARD MD) Vital Signs Capillary Refill : Less Than 3 Seconds (KENNY DRAPER APRN) Height, Weight, BMI Height: 5'10.00" Weight: 220lbs. 0.0oz. 99.768050lo; 28.00 BMI Method:Estimated General Appearance: WD/WN, no apparent distress HEENT: PERRL/EOMI, normal ENT inspection Respiratory: no respiratory distress, no accessory muscle use Gastrointestinal: normal bowel sounds, non tender, soft Extremities: normal range of motion, non-tender Neurologic/Psychiatric: alert, normal mood/affect, oriented x 3 Skin: normal color, warm/dry (KENNY DRAPER APRN) Progress/Results/Core Measures Suspected Sepsis SIRS Temperature: Pulse: 52 Respiratory Rate: 16 Laboratory Tests 03/15/21 17:00: White Blood Count 5.7 Blood Pressure 139 /73 Mean: 95 Laboratory Tests 03/15/21 17:00: Creatinine 1.10, Platelet Count 140, Total Bilirubin 0.3 (KENNY DRAPER APRN) Results/Orders Lab Results Laboratory Tests Test 03/15/21 17:00 03/15/21 17:30 Range/Units White Blood Count 5.7 4.3-11.0 10^3/uL Red Blood Count 4.22 L 4.30-5.52 10^6/uL Hemoglobin 13.1 L 13.3-17.7 g/dL Hematocrit 40 40-54 % Mean Corpuscular Volume 94 80-99 fL Mean Corpuscular Hemoglobin 31 25-34 pg Mean Corpuscular Hemoglobin Concent 33 32-36 g/dL Red Cell Distribution Width 12.5 10.0-14.5 % Platelet Count 140 130-400 10^3/uL Mean Platelet Volume 10.5 9.0-12.2 fL Immature Granulocyte % (Auto) 0 % Neutrophils (%) (Auto) 65 42-75 % Lymphocytes (%) (Auto) 23 12-44 % Monocytes (%) (Auto) 9 0-12 % Eosinophils (%) (Auto) 2 0-10 % Basophils (%) (Auto) 0 0-10 % Neutrophils # (Auto) 3.7 1.8-7.8 10^3/uL Lymphocytes # (Auto) 1.3 1.0-4.0 10^3/uL Monocytes # (Auto) 0.5 0.0-1.0 10^3/uL Eosinophils # (Auto) 0.1 0.0-0.3 10^3/uL Basophils # (Auto) 0.0 0.0-0.1 10^3/uL Immature Granulocyte # (Auto) 0.0 0.0-0.1 10^3/uL Sodium Level 134 L 135-145 MMOL/L Potassium Level 5.1 H 3.6-5.0 MMOL/L Chloride Level 98 98-107 MMOL/L Carbon Dioxide Level 29 21-32 MMOL/L Anion Gap 7 5-14 MMOL/L Blood Urea Nitrogen 22 H 7-18 MG/DL Creatinine 1.10 0.60-1.30 MG/DL Estimat Glomerular Filtration Rate 66 BUN/Creatinine Ratio 20 Glucose Level 111 H 70-105 MG/DL Calcium Level 9.4 8.5-10.1 MG/DL Corrected Calcium 9.6 8.5-10.1 MG/DL Total Bilirubin 0.3 0.1-1.0 MG/DL Aspartate Amino Transf (AST/SGOT) 12 5-34 U/L Alanine Aminotransferase (ALT/SGPT) 21 0-55 U/L Alkaline Phosphatase 74 40-136 U/L Total Protein 6.4 6.4-8.2 GM/DL Albumin 3.8 3.2-4.5 GM/DL Urine Color BROWN H Urine Clarity CLOUDY Urine pH 6.5 5-9 Urine Specific [place] 1.020 1.016-1.022 Urine Protein 2+ H NEGATIVE Urine Glucose (UA) NEGATIVE NEGATIVE Urine Ketones 1+ H NEGATIVE Urine Nitrite POSITIVE H NEGATIVE Urine Bilirubin 2+ H NEGATIVE Urine Urobilinogen 1.0 < = 1.0 MG/DL Urine Leukocyte Esterase 2+ H NEGATIVE Urine RBC (Auto) 3+ H NEGATIVE Urine RBC TNTC H /HPF Urine WBC 2-5 /HPF Urine Squamous Epithelial Cells RARE /HPF Urine Crystals NONE /LPF Urine Bacteria TRACE /HPF Urine Casts NONE /LPF Urine Mucus NEGATIVE /LPF Urine Culture Indicated YES (SABAS WOODARD MD) Micro Results Microbiology 03/15/21 Urine Culture - Preliminary, Resulted NO GROWTH (SABAS WOODARD MD) My Orders Orders - SABAS WOODARD MD Bladder Scan (03/15/21 17:01) Ua Culture If Indicated (03/15/21 17:01) Urine Culture (03/15/21 17:30) (SABAS WOODARD MD) Vital Signs/I&O 03/15/21 03/15/21 16:55 18:34 Temp 36.0 36.1 Pulse 52 58 Resp 16 16 B/P (MAP) 139/73 (95) 121/67 Pulse Ox 95 100 O2 Delivery Room Air Room Air (SABAS WOODARD MD) Vital Signs/I&O Capillary Refill : Less Than 3 Seconds (KENNY DRAPER APRN) Blood Pressure Mean: 95 Departure Communication (Admissions) I spoke with Dr. Woodard at 1809. He agrees with plan of care. Patient is just volume depleted and has not produced much urine. He was able to give us about 10 to 25 mL of urine and post void residual bladder scan was empty. We will give him a bag of fluids and discharged home. (KENNY DRAPER APRN) Impression Primary Impression: Volume depletion Additional Impression: S/P ureteral stent placement Disposition: 01 HOME, SELF-CARE Condition: Stable Departure-Patient Inst. Decision time for Depature: 18:10 (KENNY DRAPER APRN) Referrals: NIGHAT PENDLETON DO (PCP/Family) Primary Care Physician Patient Instructions: Dehydration, Adult (DC) Add. Discharge Instructions: 1. Follow-up with Dr. Woodard. Return to ER for any concerns. All discharge instructions reviewed with patient and/or family. Voiced understanding. ATTENDING PHYSICIAN NOTE: I was physically present as attending physician in the emergency department during the care of this patient, but I was not directly involved in the decision making or delivery of care for this patient. (SABAS WOODARD MD) KENNY DRAPER APRN Mar 15, 2021 17:36 SABAS WOODARD MD Mar 18, 2021 07:25
[2021-03-15 17:42] LABS: CLARITY,URINE CLOUDY; COLOR,URINE BROWN; GLUCOSE, URINE (UA) NEGATIVE (NEGATIVE); KETONES,URINE 1+ (NEGATIVE); LEUKOCYTE ESTERASE ,URINE 2+ (NEGATIVE); NITRITE,URINE POSITIVE (NEGATIVE); PH,URINE 6.5 (5-9); PROTEIN,URINE 2+ (NEGATIVE)
[2021-03-15] MEDS ORDERED: LACTATED RINGERS 1,000 ML IV SCH (17:45)
[2021-03-15 17:49] LABS: BILIRUBIN,URINE 2+ (NEGATIVE)
[2021-03-15 17:51] LABS: BACTERIA,URINE TRACE /HPF; RBC,URINE TNTC /HPF; SQUAMOUS EPITHELIAL CELL,UR RARE /HPF
[2021-03-15] MEDS ORDERED: cefTRIAXone 1,000 MG in WATER (STERILE) FOR INJECTION 10 ML IV ONE (18:00)
--- NOTE | 2021-03-15 18:05 | Diagnostic Imaging Report ---
INDICATION: Right ureteral stent and nephrolithiasis. EXAMINATION: Single AP view of the abdomen was obtained. COMPARISON: Study of 03/13/2021. FINDINGS: Similar to previous study, right double-J nephroureteral stent remains in place. There are calcified phleboliths seen, bilaterally, in the pelvis. There is suggestion of smooth rounded calcification lateral to the stent at the L3 level. This was likely present on the previous study and may represent phleboliths. Additional calcific phleboliths are seen in the pelvis. No calculus is seen along the course of the stent. IMPRESSION: Stable appearance of the abdomen without definite calculus along the course of the right double-J nephroureteral stent. Dictated by: Dictated on workstation # [id number]
[2021-03-15 18:34] VITALS: BP 121/67
== END 2021-03-15 18:34 | disposition home or self-care (01) ==
LOC: EDUNIT# 15:54 → ER 15:57
DX: E86.9 Volume depletion, unspecified (principal); I10 Essential (primary) hypertension; G47.30 Sleep apnea, unspecified; E78.00 Pure hypercholesterolemia, unspecified; I25.10 Atherosclerotic heart disease of native coronary artery without angina pectoris; K21.9 Gastro-esophageal reflux disease without esophagitis; E11.9 Type 2 diabetes mellitus without complications; Z46.6 Encounter for fitting and adjustment of urinary device; Z79.899 Other long term (current) drug therapy; Z79.84 Long term (current) use of oral hypoglycemic drugs
CPT/HCPCS: 36415; 74018; 80053; 81000; 85025; 87088

== ENCOUNTER → 2021-03-19 | Outpatient (CLI) | payer MEDICARE ==
--- NOTE | 2021-03-19 14:42 | Diagnostic Imaging Report ---
FINDINGS: History of ureteral calculus. Status post ESWL. COMPARISON: 03/15/2021 FINDINGS: Single frontal supine radiographic view of the abdomen was obtained and again demonstrates indwelling right-sided double-J ureteral stent in stable position. Previously described potential extraosseous calcification in the proximal right ureter described on prior exam is no longer seen. Very punctate microcalcifications are seen around the cephalad portion of the stent at the L2-L3 level. No unexpected radiopaque foreign bodies are identified. Small bowel loops are nondistended. There is no large collection of free intraperitoneal air. Osseous structures show no gross acute abnormalities. IMPRESSION: 1. Indwelling double-J ureteral stent as described above. 2. Findings suggestive of interval fragmentation of previously described ureteral calculus. Dictated by: Dictated on workstation # [id number]
== END ==
LOC: RAD 13:21
PROVIDERS: ATTEND Urology
DX: N20.1 Calculus of ureter (principal); Z98.890 Other specified postprocedural states
CPT/HCPCS: 74018

== ENCOUNTER 2021-03-21 05:38 | Outpatient (CLI) | payer MEDICARE ==
[~2021-03-21] VITALS: Ht 177.8 cm; Wt 86.4 kg
== END 2021-03-21 12:39 ==
LOC: PREOP 05:38
PROVIDERS: ATTEND Urology
DX: Z01.818 Encounter for other preprocedural examination (principal)

== ENCOUNTER 2021-03-28 06:43 | Day surgery (SDC) | payer MEDICARE ==
[2021-03-28] VITALS (10 sets, daily range): BP systolic 130–159; BP diastolic 78–95
[~2021-03-28] VITALS: Ht 177.8 cm; Wt 86.4 kg
[2021-03-28] MEDS ORDERED: cefTRIAXone 1,000 MG in WATER (STERILE) FOR INJECTION 10 ML IV ONE (06:45)
--- NOTE | 2021-03-28 07:03 | Progress Note-Pre Operative ---
Pre-Operative Progress Note H&P Reviewed The H&P was reviewed, patient examined and no changes noted. Date Seen by Provider: Mar 28, 2021 Time Seen by Provider: 07:03 Date H&P Reviewed: Mar 28, 2021 Time H&P Reviewed: 07:03 Pre-Operative Diagnosis: RT PROXIMAL URETERAL STONE CELE HERRERA MD Mar 28, 2021 07:03
[2021-03-28] MEDS ORDERED: CATHETER FLUSH 10 ML SYR IV PRN (07:15)
[2021-03-28] MEDS: LACTATED RINGERS 1,000 ML IV PRN ×2 (07:29→10:11)
[2021-03-28] MEDS ORDERED: RIVA10TA PO (07:32)
[2021-03-28] MEDS ORDERED: fentaNYL INJ 100 MCG/2 ML AMP ONE (09:10)
[2021-03-28] MEDS ORDERED: proPOfol 200 MG/20 ML (DIPRIVAN) VIAL IV ONE (09:10)
[2021-03-28] MEDS ORDERED: ONDANSETRON 4 MG/2 ML (SDV) Z0FRAN ONE (09:10)
[2021-03-28] MEDS ORDERED: LIDOCAINE PF 2% 5 ML (XYLOCAINE) VIAL ONE (09:10)
--- NOTE | 2021-03-28 09:30 | Discharge Inst-Urology ---
Discharge Inst-Urology Reconcile Patient Problems Problems Reviewed?: Yes Final Diagnosis RT PROXIMAL URETERAL STONE Patient Instructions/Follow Up Plan/Assessment/Instructions Please make appointment to been seen in office next week for cysto and DC stent, KUB prior to it. KUB on way home Hold Xarelto Post ESWL instructions Increase oral fluids for 48 hours and then as needed. Diet and Activity as tolerated. If questions or concerns contact your physician Or seek help at emergency department. CELE HERRERA MD Mar 28, 2021 09:30
[2021-03-28] MEDS ORDERED: FUROSEMIDE 40 MG/4 ML INJ (LASIX) ONE (09:45)
[2021-03-28] MEDS ORDERED: KETOROLAC 30 MG/ML VIAL ONE (09:45)
[2021-03-28] MEDS ORDERED: SEVOFLURANE (ULTANE) 15 ML INHAL SOLN ONE (09:46)
--- NOTE | 2021-03-28 11:36 | Anesthesia-General Post-Op ---
General Patient Condition Mental Status/LOC: Same as Preop Cardiovascular: Satisfactory Nausea/Vomiting: Absent Respiratory: Satisfactory Pain: Controlled Complications: Absent Post Op Complications Complications None Follow Up Care/Instructions Patient Instructions None needed. Anesthesia/Patient Condition Patient Condition Patient is doing well, no complaints, stable vital signs, no apparent adverse anesthesia problems. No complications reported per nursing. PADMINI AU CRNA Mar 28, 2021 11:36
--- NOTE | 2021-03-28 11:37 | Diagnostic Imaging Report ---
INDICATION: Nephrolithiasis. COMPARISON: 03/28/2021. FINDINGS: There appear to be some questionable residual fragments in the right renal pelvis. A right nephroureteral stent remains in place. The bowel gas pattern is nonspecific. There are multiple calcified phleboliths in the pelvis. IMPRESSION: There appear to be some residual stone fragments in the right renal pelvis. The right nephroureteral stent remains in satisfactory position. Dictated by: Dictated on workstation # [id number]
--- NOTE | 2021-03-28 13:33 | OPERATIVE REPORT ---
DATE OF SERVICE: 03/28/2021 PREOPERATIVE DIAGNOSIS: Right proximal ureteral stone. POSTOPERATIVE DIAGNOSIS: Right proximal ureteral stone. OPERATION PERFORMED: Right ESWL. SURGEON: Orlando Herrera MD. ANESTHESIA: General. COMPLICATIONS: None. DESCRIPTION OF PROCEDURE: Under satisfactory general anesthesia, the patient in supine position on the ESWL table, the right proximal ureteral stone was localized. Shocks were delivered at kV of 6. After 2000 shocks, we were unable to see the stone anymore, been fragmented nicely. The patient received 40 mg of Lasix and 30 mg of Toradol IV at the end of procedure. He tolerated the procedure and anesthesia well and was sent to recovery room in stable condition. Job ID: [id number] DocumentID: [id number] Dictated Date: 03/28/2021 09:40:27 Fashion Supervisor Date: 03/28/2021 13:32:26 Dictated By: ORLANDO HERRERA MD
--- NOTE | 2021-03-28 14:40 | Diagnostic Imaging Report ---
INDICATION: Nephrolithiasis. FINDINGS: A right nephroureteral stent remains in place. Bowel gas pattern is nonspecific. No abnormal calcifications are projected over the right kidney or along the course of the right ureter. IMPRESSION: No significant change in the position of the right nephroureteral stent Nonspecific bowel gas pattern. Dictated by: Dictated on workstation # [id number]
== END 2021-03-28 11:35 | disposition home or self-care (01) ==
LOC: SDC 06:43
PROVIDERS: ATTEND Urology
DX: N20.1 Calculus of ureter (principal); Z88.0 Allergy status to penicillin; I48.91 Unspecified atrial fibrillation; E11.42 Type 2 diabetes mellitus with diabetic polyneuropathy; G47.33 Obstructive sleep apnea (adult) (pediatric); I10 Essential (primary) hypertension; K21.9 Gastro-esophageal reflux disease without esophagitis; E78.5 Hyperlipidemia, unspecified; I25.10 Atherosclerotic heart disease of native coronary artery without angina pectoris; Z79.899 Other long term (current) drug therapy; Z99.89 Dependence on other enabling machines and devices; Z11.2 Encounter for screening for other bacterial diseases; Z79.84 Long term (current) use of oral hypoglycemic drugs
CPT/HCPCS: 74018; 87081

== ENCOUNTER → 2021-04-04 | Outpatient (CLI) | payer MEDICARE ==
[~2021-04-04] MED LIST changes: +RIVA10TA PO
--- NOTE | 2021-04-04 14:16 | Diagnostic Imaging Report ---
INDICATION: History of ureteral calculus. COMPARISON: 03/28/2021 FINDINGS: Single frontal radiographic view of the abdomen was obtained and again demonstrates indwelling right-sided double-J ureteral stent. Stent appears to be in appropriate position. No unexpected radiopaque foreign bodies or extraosseous calcifications are noted. Multiple pelvic phleboliths are present. Small bowel loops are nondistended. There is no large collection of free intraperitoneal air. Osseous structures show no acute abnormalities. IMPRESSION: 1. Indwelling right-sided double-J ureteral stent. 2. Nonobstructed small bowel gas pattern. Dictated by: Dictated on workstation # [id number]
== END ==
LOC: RAD 12:44
PROVIDERS: ATTEND Urology
DX: N20.1 Calculus of ureter (principal); Z96.0 Presence of urogenital implants
CPT/HCPCS: 74018

== ENCOUNTER 2022-03-11 05:32 | Outpatient (CLI) | payer OTHER, MEDICARE ==
[~2022-03-11] VITALS: Ht 177.8 cm; Wt 91.0 kg
[~2022-03-11 05:32] MED LIST changes: +CYCL10TA25 PO; -CYCL10TA9 PO
[2022-03-11] MEDS ORDERED: RIVA2.5T5 PO (10:59)
[2022-03-11] MEDS ORDERED: LISI20TA26 PO (10:59)
== END 2022-03-11 11:15 | disposition home or self-care (01) ==
LOC: PREOP 05:32
PROVIDERS: ATTEND Orthopaedic Surgery
DX: Z01.818 Encounter for other preprocedural examination (principal)

== ENCOUNTER 2022-03-13 07:28 | Day surgery (SDC) | payer OTHER, MEDICARE ==
--- NOTE | 2022-03-08 11:49 | HISTORY AND PHYSICAL ---
DATE OF SERVICE: ADMISSION HISTORY AND PHYSICAL This will be for outpatient surgery on 03/13/2022 for left knee arthroscopy. HISTORY OF PRESENT ILLNESS: The patient is a 76-year-old gentleman who injured his left knee on 02/06/2022. He has had medial pain, swelling, catching and locking since that point. Initially, he required crutches, but he has since been able to wean off of those. Ultimately, an MRI was obtained, which revealed a large oblique tear of the posterior horn of the medial meniscus. Due to functional impairment and failure to improve with conservative measures, the patient has elected to proceed with surgical intervention. REVIEW OF SYSTEMS: No recent chest pain, shortness of breath or dysuria. PAST MEDICAL HISTORY: Atrial fibrillation, status post ablation, diabetes, hypertension, peripheral neuropathy, nephrolithiasis, peptic ulcers, Lyme disease, obstructive sleep apnea, basal cell carcinoma. PAST SURGICAL HISTORY: Tonsillectomy, kidney stone removal, right earlobe basal cell carcinoma removal. FAMILY HISTORY: Significant for hypertension, cardiovascular disease, diabetes. PRIMARY CARE PROVIDER: Dr. Hassan. MEDICATIONS: Diltiazem, sucralfate, glucosamine, cinnamon, docusate, Ocuvite, Xarelto, lisinopril, flecainide, carbamazepine, metformin, doxycycline, lovastatin, hydrocodone. ALLERGIES: PENICILLIN. SOCIAL HISTORY: The patient denies alcohol and tobacco use. PHYSICAL EXAMINATION: GENERAL: The patient is well-developed, well-nourished, in no acute distress. HEENT: Normocephalic, atraumatic. Pupils are equal, round and reactive to light. Oropharynx is clear. NECK: Supple, no lymphadenopathy. LUNGS: Clear to auscultation bilaterally. HEART: Regular rate and rhythm. ABDOMEN: Soft, nontender, nondistended. EXTREMITIES: The left knee demonstrates moderate effusions, tender along his medial joint line, has pain medially with Ta's. There is no varus valgus laxity. Negative anterior and posterior drawer. Range of motion is 0/2/125. 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 PLAN: Left knee arthroscopy with partial medial meniscectomy and chondroplasty. The risks, benefits, options, ramifications and recovery were discussed at length with the patient. He understands and wishes to proceed. Job ID: [id number] DocumentID: [id number] Dictated Date: 03/07/2022 09:13:35 Tie Binder Date: 03/07/2022 09:34:47 Dictated By: BEENA SCHMIDT MD
[2022-03-13] VITALS (11 sets, daily range): BP systolic 112–159; BP diastolic 71–88
[~2022-03-13] VITALS: Ht 177.8 cm; Wt 91.0 kg
[~2022-03-13 07:28] MED LIST changes: +HYDROcodone/APAP 7.5 MG/325 MG (LORTAB, LORCET PLUS) TABLET PO PRN; +LISI20TA26 PO; +RIVA2.5T5 PO
--- NOTE | 2022-03-13 07:39 | Progress Note-Pre Operative ---
Pre-Operative Progress Note Date of Available H&P: Mar 13, 2022 Date H&P Reviewed: Mar 13, 2022 Time H&P Reviewed: 07:11 Changes from last HP none Pre-Operative Diagnosis: left knee medial meniscus tear and chondromalacia BEENA SCHMIDT MD Mar 13, 2022 07:39
--- NOTE | 2022-03-13 07:40 | Progress Note-Post Operative ---
Post-Operative Progess Note Surgeon (s)/Document Preparer Microfilming (s) Surgeon BEENA SCHMIDT MD Document Preparer Microfilming: Scar Barrett Pre-Operative Diagnosis left knee medial meniscus tear and chondromalacia Post-Operative Diagnosis left knee medial meniscus tear and chondromalacia of the medial femoral condyle, medial tibial plateau and patella Procedure & Operative Findings Date of Procedure 03/13/22 Procedure Performed/Findings left knee arthroscopic partial medial meniscectomy and chondroplasty of the medial femoral condyle, medial tibia plateau and patella Anesthesia Type GETA Estimated Blood Loss Estimated blood loss (mL): minimal Specimens/Packing Specimens Removed none Packing: none BEENA SCHMIDT MD Mar 13, 2022 07:40
[2022-03-13] MEDS ORDERED: CLINDAMYCIN 600 MG/50 ML IVPB 50 ML IV ONE (08:00)
[2022-03-13] MEDS: LACTATED RINGERS 1,000 ML IV PRN ×2 (08:27→10:25)
[2022-03-13] MEDS ORDERED: MIDAZOLAM 2 MG/2 ML (VERSED) VIAL ONE (08:31)
[2022-03-13] MEDS ORDERED: ONDANSETRON 4 MG/2 ML (SDV) Z0FRAN ONE (08:31)
[2022-03-13] MEDS ORDERED: SEVOFLURANE (ULTANE) 15 ML INHAL SOLN ONE (08:31)
[2022-03-13] MEDS ORDERED: fentaNYL INJ 100 MCG/2 ML AMP ONE (08:31)
[2022-03-13] MEDS ORDERED: proPOfol 200 MG/20 ML (DIPRIVAN) VIAL IV ONE (08:31)
[2022-03-13] MEDS ORDERED: LIDOCAINE PF 2% 5 ML (XYLOCAINE) VIAL ONE (08:35)
[2022-03-13] MEDS ORDERED: BUPIVACAINE 0.25% 30 ML (SENSORCAINE) VIAL ONE (08:50)
[2022-03-13] MEDS ORDERED: morphine PF (DURAMORPH) 10 MG/10 ML AMP ONE (08:50)
[2022-03-13] MEDS ORDERED: KETOROLAC 30 MG/ML VIAL ONE (09:40)
[2022-03-13] MEDS ORDERED: HYDROmorphone 2 MG/ML VIAL (DILAUDID) IV ONE (10:00)
[2022-03-13] MEDS ORDERED: ONDANSETRON 4 MG/2 ML (SDV) Z0FRAN IVP PRN (10:00)
--- NOTE | 2022-03-13 11:32 | Physical Therapy Ortho Eval ---
PT Orthopedic Evaluation Type of Surgery Knee Scope left side Prior Level of Function Current Living Status: Spouse Locomotion (Upon Admit): Independent Established Durable Medical Eq: Crutches Subjective Subjective Patient in bed pre tx, agrees to PT, has no complaints of pain or numbness Entry Into Home: Ramp Motor Control Motor Control: Motor Control WNL ROM left knee flexion 90 degrees, extension +2 degrees Transfer SCALE: Activities may be completed with or without assistive devices. 4-Qwglvsjxla-gpiteei completes the activity by him/herself with no assistance from a helper. 5-Set-up or Clean-up Assistance-helper sets up or cleans up; patient completes activity. [place] assists only prior to or following the activity. 4-Supervision or Touching Assistance-helper provides verbal cues and/or touching/steadying and/or contact guard assistance as patient completes activity. Assistance may be provided throughout the activity or intermittently. 3-Partial/Moderate Assistance-helper does LESS THAN HALF the effort. [place] lifts, holds or supports trunk or limbs, but provides less than half the effort. 2-Substantial/Maximal Assistance-helper does MORE THAN HALF the effort. [place] lifts or holds trunk or limbs and provides more than half the effort. 1-Wjlkgrjdc-gdbnsw does ALL the effort. Patient does none of the effort to complete the activity. Or, the assistance of 2 or more helpers is required for the patient to complete the activity. If activity was not attempted, code reason: 7-Patient Refused. 9-Not Applicable-not attempted and the patient did not perform the activity before the current illness, exacerbation or injury. 10-Not Attempted due to Environmental Limitations-(lack of equipment, weather restraints, etc.). 88-Not Attempted due to Medical Conditions or Safety Concerns. Gait Gait Assistive Device: Crutches Left Lower Extremity: Left Weight Bearing Status LLE: Weight Bearing/Tolerated Summary/Comments Patient ambulated 200' with SBA using bilateral axillary crutches, he also went up and down 1 step using crutches with cues for foot placement. Patient has experience using crutches previously. Treatment Rendered Treatment: Therapeutic Exercises, Gait Train, Step Train Exercise Instruction: Quad Sets, Heel Slides, Ankle Pumps Assessment/Goals Goal Time Frame: 1 Visit Understands HEP: Yes Safe Ambulation: Yes Plan Treatment Plan: Discharge PT/Family Agrees to Plan: Yes Time Time In: 1108 Time Out: 1120 Total Billed Treatment Time: 12 Billed Treatment Time 1 visit EVL 12' GRETCHEN JOHNSON PT Mar 13, 2022 11:32
--- NOTE | 2022-03-13 14:29 | OPERATIVE REPORT ---
DATE OF SERVICE: 03/13/2022 PREOPERATIVE DIAGNOSES: 1. Left knee medial meniscus tear. 2. Left knee chondromalacia of the medial femoral condyle. 3. Left knee chondromalacia of patella. POSTOPERATIVE DIAGNOSES: 1. Left knee medial meniscus tear. 2. Left knee chondromalacia of the medial femoral condyle. 3. Left knee chondromalacia of patella. 4. 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 PROCEDURES: 1. Left knee arthroscopic partial medial meniscectomy. 2. Left knee arthroscopic chondroplasty of the medial femoral condyle. 3. Left knee arthroscopic chondroplasty of the patella. 4. Left knee arthroscopic chondroplasty of the medial tibial plateau. SURGEON: Dorian Schmidt MD CHIEF AIRLINE RADIO OPERATOR: Scar Barrett, who assisted throughout the procedure and closed the incisions. ANESTHESIA: General endotracheal by uJlito Mendenhall CRNA. TOURNIQUET TIME: Nonfocal. ESTIMATED BLOOD LOSS: Minimal. DRAINS: None. COMPLICATIONS: None. POSTOPERATIVE PLAN: Routine arthroscopy protocol. The patient was transferred to the recovery room awake and in stable condition. STATEMENT OF MEDICAL NECESSITY: The patient is a 76-year-old gentleman who injured his left knee. When he was walking, he twisted, felt and heard a pop, had medial joint line tenderness. An MRI revealed a complex tear of the posterior horn of the medial meniscus. Due to functional impairment and failure to improve with conservative measures, the patient elected to proceed with surgical intervention. Examination under anesthesia revealed range of motion of 0/0/135 with negative Vini, negative anterior and posterior drawer. No varus or valgus laxity and negative pivot shift. ARTHROSCOPIC FINDINGS: The patella demonstrated grade II chondral flaps inferiorly in a 10 x 10 area. The trochlea demonstrated no gross chondral abnormalities. Medial and lateral gutters were clear. The ACL and PCL were intact. The medial compartment demonstrated no meniscal or chondral pathology. The medial compartment demonstrated complex tear of the posterior horn and body of the medial meniscus involving approximately two-thirds of the posterior horn and body. In addition, there were grade III to IV chondral flaps posteriorly on the tibial plateau in an 8 x 10 area and an adjacent 8 x 10 area on the femoral condyle. DESCRIPTION OF PROCEDURE: After risks and benefits of procedure were discussed and questions were answered, informed consent was signed and placed on chart, the operative site was confirmed in the preoperative holding area initialed by the surgeon. The patient was then transferred to the operating room and after adequate levels of general endotracheal anesthetic were obtained, a timeout was called, confirming the operative site. An examination under anesthesia was performed with above findings noted. Left lower extremity was prepped and draped in the usual sterile fashion. The knee joint was injected with 60 mL of fluid and standard inferolateral portal was placed for the arthroscope under direct visualization, inferior medial portal was created. The menisci and cruciates carefully probed with the above findings noted. The unstable chondral flaps on the patella were debrided with a shaver back to a stable edge. Scope was redirected into the medial compartment and unstable chondral flaps on the medial femoral condyle and medial tibial plateau were debrided with a shaver back to a stable edge. The posterior horn and body of the medial meniscus were debrided with a biter and a shaver back to a stable edge. This was carefully probed with no further tearing or instability noted. The knee was copiously irrigated. Portal sites were closed with 4-0 nylon in simple interrupted fashion. The knee was injected with Duramorph. Port sites were infiltrated with plain Marcaine. A soft dressing was applied, and the patient was transferred to the recovery room awake and in stable condition. Job ID: [id number] DocumentID: [id number] Dictated Date: 03/13/2022 09:56:34 Bag End Sewer Date: 03/13/2022 14:28:54 Dictated By: DORIAN SCHMIDT MD
== END 2022-03-13 12:05 | disposition home or self-care (01) ==
LOC: SDC 07:28
PROVIDERS: ATTEND Orthopaedic Surgery
DX: S83.242A Other tear of medial meniscus, current injury, left knee, initial encounter (principal); M94.262 Chondromalacia, left knee; G47.33 Obstructive sleep apnea (adult) (pediatric); Z79.899 Other long term (current) drug therapy; K21.9 Gastro-esophageal reflux disease without esophagitis; E11.42 Type 2 diabetes mellitus with diabetic polyneuropathy
CPT/HCPCS: 87081

== ENCOUNTER → 2022-08-08 | Outpatient (CLI) | payer MEDICARE ==
[~2022-08-08] MED LIST changes: -DOXY-311 PO; +DOXY-444 PO; -HYDROcodone/APAP 7.5 MG/325 MG (LORTAB, LORCET PLUS) TABLET PO PRN
== END ==
LOC: CARD 12:45
PROVIDERS: ATTEND Internal Medicine Cardiovascular Disease
DX: I51.7 Cardiomegaly (principal); R01.1 Cardiac murmur, unspecified
CPT/HCPCS: 93306